=== PATIENT | male | born 1960 | race Caucasian/White ===

== ENCOUNTER 2016-10-30 06:45 | Inpatient (IN) | payer BC ==
[~2016-10-30 06:45] MED LIST: Lactated Ringers 1,000 ML IV SCH; Lidocaine 1%/Sod Bicarbonate in NS 8.4% 1 ML Syringe IV PRN; Sodium Chloride 0.9% 10 ML Syringe FLUSH PRN
[2016-10-30] MEDS ORDERED: cefOXitin 1 GM in Premix Bag 1 BAG IV ONE (07:15)
--- NOTE | 2016-10-30 07:23 | PCM.PREANE ---
Preanesthetic Assessment - Anesthesia/Transfusion/Family Hx Anesthesia History: Prior Anesthesia Without Reaction Family History of Anesthesia Reaction: No Transfusion History: No Prior Transfusion(s) - Review of Systems General: Fatigue (towards the end of the day) Pulmonary: Shortness of Breath, Wheezing Cardiovascular: Dyspnea on Exertion Gastrointestinal: No Symptoms Neurological: Weakness (right arm some numbess as times) Other: Reports: Diabetes (124) - Physical Assessment NPO Status Date: 10/29/16 NPO Status Time: 21:00 Pulse: 61 O2 Sat by Pulse Oximetry: 95 Respiratory Rate: 16 Blood Pressure: 155/81 Height: 1.7 m Weight: 111.13 kg ASA Class: 3 Mental Status: Alert & Oriented x3 Airway Class: Mallampati = 2 Dentition: Reports: Edentulous Thyro-Mental Finger Breadths: 3 Mouth Opening Finger Breadths: 3 ROM/Head Extension: Full Lungs: Clear to Auscultation, Normal Respiratory Effort Cardiovascular: Regular Rate, Regular Rhythm - Allergies Allergies/Adverse Reactions: Allergies Allergy/AdvReac Type Severity Reaction Status Date / Time niacin Allergy Hives Verified 01/15/16 09:29 - Blood Blood Available: No Product(s) Available: None - Anesthesia Plan Beta Hector: Metoprolol Med Last Dose Date: 10/30/16 Med Last Dose Time: 07:15 - Acknowledgements Anesthesia Type Planned: General Anesthesia Pt an Appropriate Candidate for the Planned Anesthesia: Yes Alternatives and Risks of Anesthesia Discussed w Pt/Guardian: Yes Pt/Guardian Understands and Agrees with Anesthesia Plan: Yes PreAnesthesia Questionnaire HEENT History: Reports: Impaired Vision, Otitis Media, Other (See Below) Other HEENT History: wears glasses Cardiovascular History: Reports: Afib, High Cholesterol, Hypertension, Other ( See Below) Other Cardiovascular History: post op afib, edema, venous insufficiency Respiratory History: Reports: COPD, Sleep Apnea, SOB, Other (See Below) Other Respiratory History: R lung mass and adenocarcinoma Genitourinary History: Reports: None OPHTHALMIC DISPENSER History: Reports: None Musculoskeletal History: Reports: Arthritis, Osteoarthritis Neurological History: Reports: None Psychiatric History: Reports: None Endocrine/Metabolic History: Reports: Diabetes, Type II, Obesity/BMI 30+ Hematologic History: Reports: None Immunologic History: Reports: None Oncologic (Cancer) History: Reports: None Dermatologic History: Reports: None - Past Surgical History Head Surgeries/Procedures: Reports: None HEENT Surgical History: Reports: Myringotomy w Tube(s), Tonsillectomy Respiratory Surgical History: Reports: Other (See Below) Other Respiratory Surgeries/Procedures: Right lower lobe lobectomy GI Surgical History: Reports: Colonoscopy Female Surgical History: Reports: None Male Surgical History: Reports: None Neurological Surgical History: Reports: None Oncologic Surgical History: Reports: None Dermatological Surgical History: Reports: None - SUBSTANCE USE Smoking Status *Q: Current Every Day Smoker Tobacco Use Within Last Twelve Months: Cigarettes Second Hand Smoke Exposure: Yes Days Per Week of Alcohol Use: 3 Number of Drinks Per Day: 4 Total Drinks Per Week: 12 Recreational Drug Use History: No Recreational Drug Type: Reports: Marijuana/Hashish - HOME MEDS Home Medications: Home Meds Albuterol [IJD: Ventolin HFA] 1 puff INH Q4HR PRN 01/14/16 [History] Albuterol/Ipratropium [Combivent Respimat] 1 puff INH BID 01/14/16 [History] Fluticasone Propionate [Flovent Hfa] 1 puff INH BID 01/14/16 [History] Irbesartan 300 mg PO DAILY 01/14/16 [History] Lisinopril 40 mg PO DAILY 01/14/16 [History] Metoprolol Tartrate 100 tab PO BID 01/14/16 [History] Simvastatin 20 mg PO BEDTIME 01/14/16 [History] metFORMIN HCl [Metformin HCl] 1,000 mg PO BID 01/14/16 [History] Apixaban [Eliquis] 5 mg PO DAILY 10/29/16 [History] Aspirin 81 mg PO DAILY 10/29/16 [History] Chlorthalidone [Chlorthalidone] 25 mg PO DAILY 10/29/16 [History] Diltiazem [Cardizem CD] 180 mg PO DAILY 10/29/16 [History] Insulin Aspart [NovoLOG] 1 dose SQ TID PRN 10/29/16 [History] Insulin Degludec [Tresiba Flextouch U-200] 120 mg SQ QAM 10/29/16 [History] - CURRENT (IN HOUSE) MEDS Current Meds: Current Medications Lactated Ringer's (Ringers, Lactated) 1,000 mls @ 125 mls/hr IV ASDIRECTED VILMA Cefoxitin Sodium 1 gm/ Premix 50 mls @ 100 mls/hr IV ONETIME ONE Stop: 10/30/16 07:44 Lidocaine/Sodium Bicarbonate (Buffered Lidocaine 1% In Ns 8.4%) 0.25 ml IV ONETIME PRN PRN Reason: Prior to IV Start Stop: 10/30/16 16:00 Sodium Chloride (Saline Flush) 10 ml FLUSH ASDIRECTED PRN PRN Reason: Keep Vein Open Stop: 10/30/16 23:00
[2016-10-30] MEDS ORDERED: Bupivacaine 0.5%/EPINEPHrine 1:200,000 50 ML MDV ONE (07:25)
[2016-10-30] MEDS ORDERED: Lidocaine 1% with EPINEPHrine 1:100,000 20 ML MDV ONE (07:25)
[2016-10-30] MEDS ORDERED: Albuterol 0.042% 1.25 MG/3 ML Neb Soln NEB ONE (07:39)
[2016-10-30] MEDS ORDERED: fentaNYL 250 MCG/5 ML SDV ONE (07:52)
[2016-10-30] MEDS ORDERED: Propofol 200 MG/20 ML SDV ONE (07:52)
[2016-10-30] MEDS ORDERED: Rocuronium 50 MG/5 ML Vial ONE ×2 (07:52→09:42)
[2016-10-30] MEDS ORDERED: Midazolam 1 MG/ML 2 ML SDV ONE (07:52)
[2016-10-30] MEDS ORDERED: Ondansetron 4 MG/2 ML SDV ONE (07:52)
[2016-10-30] MEDS ORDERED: cefOXitin 2 GM in Premix Bag 1 BAG IV ONE (08:45)
[2016-10-30] MEDS ORDERED: HYDROmorphone 1 MG/ML Syringe ONE (09:42)
[2016-10-30] MEDS ORDERED: Glycopyrrolate 0.2 MG/ML SDV ONE (09:53)
[2016-10-30] MEDS ORDERED: ePHEDrine 50 MG/ML SDV ONE (09:53)
[2016-10-30] MEDS ORDERED: Phenylephrine 1% 10 MG/ML SDV ONE (09:53)
[2016-10-30] MEDS ORDERED: Neostigmine Methylsulfate 10 MG/10 ML MDV ONE (09:53)
[2016-10-30] MEDS ORDERED: Ondansetron 4 MG/2 ML SDV IVPUSH PRN (10:11)
[2016-10-30] MEDS ORDERED: fentaNYL 100 MCG/2 ML SDV IVPUSH PRN (10:45)
[2016-10-30] MEDS ORDERED: HYDROmorphone 0.5 MG/0.5 ML Syringe IVPUSH PRN (10:45)
--- NOTE | 2016-10-30 11:11 | PCM.POSTAN ---
POST ANESTHESIA ASSESSMENT - MENTAL STATUS Mental Status: Alert, Oriented - VITAL SIGNS Pulse Rate: 64 SaO2: 95 Resp Rate: 16 Blood Pressure: 149/75 Temperature: 36.8 C - RESPIRATORY Respiratory Status: Respiratory Rate WNL, Airway Patent, O2 Saturation Stable, Supplemental Oxygen - CARDIOVASCULAR CV Status: Pulse Rate WNL, Blood Pressure Stable - GASTROINTESTINAL GI Status: No Symptoms - PAIN Pain Score: 0 - POST OP HYDRATION Hydration Status: Adequate & Stable
--- NOTE | 2016-10-30 11:52 | PCM.OPNOTE ---
- General Post-Op/Procedure Note Date of Surgery/Procedure: 10/30/16 Operative Procedure(s): Open right hemicolectomy with [id number] stapled ileal to transverse colonic anastomosis Findings: Firm mass in the cecum Pre Op Diagnosis: Dysplastic cecal polyp Post-Op Diagnosis: Same Anesthesia Technique: General ET Tube Primary Surgeon: Jose G Sarabia Pathology: Right colon EBL in mLs: 50 Complications: None Condition: Good Free Text/Narrative:: Intake & Output 10/29/16 10/30/16 10/30/16 22:59 06:59 14:59 Output Total 160 Balance -160 After adequate general endotracheal tube anesthesia the patient's abdomen was prepped and draped sterilely for an open right hemicolectomy. A midline incision was made beginning just above the umbilicus and extended to just above the suprapubic region with a 10 blade. The abdomen was entered sharply. Exploration revealed a firm mass in the area of the cecum. A Jovany retractor was used to maintain the operative field. I mobilized the cecum and right colon beginning at the white line and extending in a cephalad direction toward the liver using a combination of blunt finger and sharp dissection I ran into some adhesions between the hepatic flexure and the bed of the liver which were divided sharply and with the cautery. I mobilized the hepatic flexure away from the second and first parts of the duodenum. I then mobilized the terminal ileum from below. This brought the right colon with mobilization outside the abdominal wall. The right ureter was identified before scoring the mesentery. I used Lisa's and 3-0 Vicryl suture to take down the mesentery. I then fired a linear cutter stapler at the hepatic flexure and then across the terminal ileum. The specimen was removed. I then performed a [id number] stapled anastomosis between the ileum and the proximal transverse colon. I used a TA 90 stapler to fire across the ends. 3-0 silk also Lembert sutures were used to reinforce the staple lines. I irrigated out the abdomen with 2 L of saline. I then closed the abdominal wall with a running #1 PDS suture. The skin was closed with maame after irrigating the subcutaneous fat. Gauze and tape were used for the dressing. There were no procedure consultations.
[2016-10-30] MEDS ORDERED: Albuterol 6.7 GM Inhaler INH PRN (11:56)
[2016-10-30] MEDS: Lactated Ringers 1,000 ML IV SCH ×2 (12:56→20:56)
[2016-10-30] MEDS: cefOXitin 2 GM in Premix Bag 1 BAG IV SCH ×2 (12:57→18:25)
[2016-10-30] MEDS: HYDROmorphone 1 MG/ML Syringe IVPUSH PRN ×2 (16:55→21:30)
[2016-10-30] MEDS: Metoprolol Tartrate 100 MG Tab PO SCH (20:59)
[2016-10-30] MEDS: Fluticasone Propionate 44 MCG/Puff 10.6 GM Inhaler INH SCH (21:25)
[2016-10-30] MEDS: Albuterol 6.7 GM Inhaler INH SCH (21:25)
[2016-10-31] MEDS: cefOXitin 2 GM in Premix Bag 1 BAG IV SCH ×4 (00:22→18:26)
[2016-10-31] MEDS: HYDROmorphone 1 MG/ML Syringe IVPUSH PRN ×3 (04:29→20:45)
[2016-10-31] MEDS: Lactated Ringers 1,000 ML IV SCH ×2 (04:30→12:31)
[2016-10-31] MEDS: Metoprolol Tartrate 100 MG Tab PO SCH ×2 (08:19→20:36)
[2016-10-31] MEDS: Lisinopril 20 MG Tab PO SCH (08:29)
[2016-10-31] MEDS: Diltiazem 180 MG Cap.CD PO SCH (08:29)
[2016-10-31] MEDS: Tiotropium Inhaler 18 MCG Inhalation Powder Cap Kit of 5 INH SCH (08:51)
[2016-10-31] MEDS: Albuterol 6.7 GM Inhaler INH SCH ×2 (08:51→20:30)
[2016-10-31] MEDS: Fluticasone Propionate 44 MCG/Puff 10.6 GM Inhaler INH SCH ×2 (08:52→20:30)
[2016-10-31] MEDS ORDERED: Furosemide 20 MG Tab PO PRN (09:24)
--- NOTE | 2016-10-31 09:26 | PCM.SURGPN ---
- General Info Date of Service: 10/31/16 POD#: 1 Functional Status: Reports: Pain Controlled, Ambulating, Urinating - Review of Systems Gastrointestinal: Reports: Abdominal Pain (Incisional discomfort) - Patient Data Vitals - Most Recent: Last Vital Signs Temp 36.2 C 10/31/16 07:59 Pulse 64 10/31/16 08:26 Resp 20 10/31/16 07:59 BP 180/74 H 10/31/16 08:29 Pulse Ox 96 10/31/16 08:54 Weight - Most Recent: 117.072 kg I&O - Last 24 Hours: Intake & Output 10/30/16 10/31/16 10/31/16 22:59 06:59 14:59 Intake Total 560 1555 Output Total 200 1400 Balance 360 155 Lab Results Last 24 Hrs: Laboratory Results - last 24 hr 10/30/16 Range/Units 11:06 POC Glucose 118 H (70-105) mg/dL Med Orders - Current: Current Medications Albuterol (Proventil Hfa) 0 gm INH Q4H PRN PRN Reason: Shortness of Breath Albuterol (Proventil Hfa) 0 gm INH BID [facility] Last Admin: 10/31/16 08:51 Dose: 1 puff Diltiazem HCl (Cardizem Cd) 180 mg PO DAILY [facility] Last Admin: 10/31/16 08:29 Dose: 180 mg Fluticasone Propionate (Flovent Hfa 44 Mcg) 0 gm INH BID [facility] Last Admin: 10/31/16 08:52 Dose: 1 puff Hydromorphone HCl (Dilaudid) 1 mg IVPUSH Q1H PRN PRN Reason: Pain (severe 7-10) Last Admin: 10/31/16 04:29 Dose: 1 mg Cefoxitin Sodium 2 gm/ Premix 50 mls @ 100 mls/hr IV Q6H [facility] Last Admin: 10/31/16 06:49 Dose: 100 mls/hr Lactated Ringer's (Ringers, Lactated) 1,000 mls @ 125 mls/hr IV ASDIRECTED [facility] Last Admin: 10/31/16 04:30 Dose: 125 mls/hr Lisinopril (Prinivil) 40 mg PO DAILY [facility] Last Admin: 10/31/16 08:29 Dose: 40 mg Metoprolol Tartrate (Lopressor) 100 mg PO BID [facility] Last Admin: 10/31/16 08:19 Dose: 100 mg Chlorthalidone 25 Mg 0 each PO DAILY [facility] Tiotropium [place] (Spiriva Handihaler) 18 mcg INH DAILY [facility] Last Admin: 10/31/16 08:51 Dose: 1 puff Discontinued Medications Albuterol (Proventil Neb Soln) 1.25 mg NEB ONETIME ONE Stop: 10/30/16 07:40 Last Admin: 10/30/16 07:59 Dose: 1.25 mg Bupivacaine HCl/Epinephrine Bitart (Marcaine 0.5%/Epinephrine 1:200,000) Confirm Administered Dose 50 ml .ROUTE .STK-MED ONE Stop: 10/30/16 07:26 Ephedrine Sulfate (Ephedrine Sulfate) Confirm Administered Dose 50 mg .ROUTE .STK-MED ONE Stop: 10/30/16 09:54 Fentanyl (Sublimaze) Confirm Administered Dose 250 mcg .ROUTE .STK-MED ONE Stop: 10/30/16 07:53 Fentanyl (Sublimaze) 50 mcg IVPUSH Q5M PRN PRN Reason: pain Stop: 10/30/16 18:00 Glycopyrrolate (Robinul) Confirm Administered Dose 0.6 mg .ROUTE .STK-MED ONE Stop: 10/30/16 09:54 Hydromorphone HCl (Dilaudid) Confirm Administered Dose 1 mg .ROUTE .STK-MED ONE Stop: 10/30/16 09:43 Hydromorphone HCl (Dilaudid) 0.5 mg IVPUSH Q15M PRN PRN Reason: Pain (severe 7-10) Stop: 10/30/16 10:46 Lactated Ringer's (Ringers, Lactated) 1,000 mls @ 125 mls/hr IV ASDIRECTED [facility] Last Admin: 10/30/16 07:25 Dose: 125 mls/hr Cefoxitin Sodium 2 gm/ Premix 50 mls @ 100 mls/hr IV ONETIME ONE Stop: 10/30/16 09:14 Last Admin: 10/30/16 13:02 Dose: Not Given Lidocaine/Epinephrine (Xylocaine 1% With Epinephrine 1:100,000) Confirm Administered Dose 20 ml .ROUTE .STK-MED ONE Stop: 10/30/16 07:26 Lidocaine/Sodium Bicarbonate (Buffered Lidocaine 1% In Ns 8.4%) 0.25 ml IV ONETIME PRN PRN Reason: Prior to IV Start Stop: 10/30/16 16:00 Last Admin: 10/30/16 07:24 Dose: 0.25 ml Midazolam HCl (Versed 1 Mg/Ml) Confirm Administered Dose 2 mg .ROUTE .STK-MED ONE Stop: 10/30/16 07:53 Neostigmine Methylsulfate (Neostigmine Methylsulfate) Confirm Administered Dose 10 mg .ROUTE .STK-MED ONE Stop: 10/30/16 09:54 Ondansetron HCl (Zofran) Confirm Administered Dose 4 mg .ROUTE .STK-MED ONE Stop: 10/30/16 07:53 Ondansetron HCl (Zofran) 4 mg IVPUSH ONETIME PRN PRN Reason: Nausea/Vomiting Stop: 10/30/16 18:00 Phenylephrine HCl (Joe-Synephrine) Confirm Administered Dose 10 mg .ROUTE .STK- MED ONE Stop: 10/30/16 09:54 Propofol (Diprivan 20 Ml) Confirm Administered Dose 200 mg .ROUTE .STK-MED ONE Stop: 10/30/16 07:53 Rocuronium [place] (Zemuron) Confirm Administered Dose 50 mg .ROUTE .STK-MED ONE Stop: 10/30/16 07:53 Rocuronium [place] (Zemuron) Confirm Administered Dose 50 mg .ROUTE .STK-MED ONE Stop: 10/30/16 09:43 Sodium Chloride (Saline Flush) 10 ml FLUSH ASDIRECTED PRN PRN Reason: Keep Vein Open Stop: 10/30/16 23:00 - Exam Wound/Incisions: Dressing Dry and Intact, No Drainage GI/Abdominal Exam: Soft - Problem List Review Problem List Initiated/Reviewed/Updated: Yes - My Orders Last 24 Hours: Active Orders 24 hr Category Date Time Status Patient Status [ADT] Routine ADT 10/30/16 11:52 Active Ambulate [RC] ASDIRECTED Care 10/30/16 11:52 Active Antiembolic Devices [RC] QSHIFT Care 10/30/16 11:55 Active Dressing Change [Wound Care] [RC] DAILY Care 10/30/16 18:41 Active Head of Bed Elevation [RC] ASDIRECTED Care 10/30/16 11:54 Active IS (RT) [RT Incentive Spirometry] [RC] ASDIRECTED Care 10/30/16 12:48 Active Intake and Output [RC] 04,16 Care 10/30/16 11:54 Active May Shower [RC] ASDIRECTED Care 10/31/16 09:23 Ordered Notify Provider [RC] ASDIRECTED Care 10/30/16 10:10 Active Oxygen Therapy [RC] PRN Care 10/30/16 11:52 Active Pulse Oximetry [RC] ASDIRECTED Care 10/30/16 10:10 Active Up ad Evy [RC] ASDIRECTED Care 10/30/16 11:52 Active Up to Chair [RC] ASDIRECTED Care 10/30/16 11:52 Active VTE/DVT Education [RC] QSHIFT Care 10/30/16 11:55 Active Vital Signs [RC] Q4HR Care 10/30/16 11:52 Active Clear Liquid Diet [DIET] Diet 10/31/16 Lunch Ordered Nothing Per Oral Diet [DIET] Diet 10/30/16 Dinner Active Albuterol [Proventil HFA] Med 10/30/16 21:00 Active 0 gm INH BID Albuterol [Proventil HFA] Med 10/30/16 11:56 Active 0 gm INH Q4H PRN Diltiazem [Cardizem CD] Med 10/31/16 09:00 Active 180 mg PO DAILY Fluticasone Propionate [Flovent HFA 44 MCG] Med 10/30/16 21:00 Active 0 gm INH BID Furosemide [Lasix] Med 10/31/16 09:24 Ordered 20 mg PO DAILY PRN HYDROmorphone [Dilaudid] Med 10/30/16 11:52 Active 1 mg IVPUSH Q1H PRN Lactated Ringers [Ringers, Lactated] 1,000 ml Med 10/30/16 12:00 Active IV ASDIRECTED Lisinopril [Prinivil] Med 10/31/16 09:00 Active 40 mg PO DAILY Metoprolol Tartrate [Lopressor] Med 10/30/16 21:00 Active 100 mg PO BID Patient's Own Medication [Ptom] Med 10/31/16 09:00 Active 0 each PO DAILY Tiotropium [Spiriva HandiHaler] Med 10/31/16 09:00 Active 18 mcg INH DAILY cefOXitin [Mefoxin in Dextrose,Iso-Osm 2 GM/50 ML] 2 gm Med 10/30/16 12:30 Active Premix Bag 1 bag IV Q6H Abdominal Binder [OM.PC] Per Unit Routine Oth 10/30/16 11:54 Ordered CPAP [RESPCARE] Routine Oth 10/30/16 12:49 Active DVT/VTE Prophylaxis Reflex [OM.PC] Routine Oth 10/30/16 11:52 Ordered Resuscitation Status Routine Resus Stat 10/30/16 11:52 Ordered Medication Orders Albuterol (Proventil Hfa) 0 gm INH Q4H PRN PRN Reason: Shortness of Breath Albuterol (Proventil Hfa) 0 gm INH BID [facility] Last Admin: 10/31/16 08:51 Dose: 1 puff Admin: 10/30/16 21:25 Dose: 1 puff Diltiazem HCl (Cardizem Cd) 180 mg PO DAILY [facility] Last Admin: 10/31/16 08:29 Dose: 180 mg Fluticasone Propionate (Flovent Hfa 44 Mcg) 0 gm INH BID [facility] Last Admin: 10/31/16 08:52 Dose: 1 puff Admin: 10/30/16 21:25 Dose: 1 puff Hydromorphone HCl (Dilaudid) 1 mg IVPUSH Q1H PRN PRN Reason: Pain (severe 7-10) Last Admin: 10/31/16 04:29 Dose: 1 mg Admin: 10/30/16 21:30 Dose: 1 mg Admin: 10/30/16 16:55 Dose: 1 mg Cefoxitin Sodium 2 gm/ Premix 50 mls @ 100 mls/hr IV Q6H [facility] Last Admin: 10/31/16 06:49 Dose: 100 mls/hr Infusion: 10/31/16 00:52 Dose: 100 mls/hr Admin: 10/31/16 00:22 Dose: 100 mls/hr Infusion: 10/30/16 18:55 Dose: 100 mls/hr Admin: 10/30/16 18:25 Dose: 100 mls/hr Infusion: 10/30/16 13:27 Dose: 100 mls/hr Admin: 10/30/16 12:57 Dose: 100 mls/hr Lactated Ringer's (Ringers, Lactated) 1,000 mls @ 125 mls/hr IV ASDIRECTED [facility] Last Admin: 10/31/16 04:30 Dose: 125 mls/hr Infusion: 10/31/16 04:30 Dose: 125 mls/hr Admin: 10/30/16 20:56 Dose: 125 mls/hr Infusion: 10/30/16 20:56 Dose: 125 mls/hr Admin: 10/30/16 12:56 Dose: 125 mls/hr Lisinopril (Prinivil) 40 mg PO DAILY [facility] Last Admin: 10/31/16 08:29 Dose: 40 mg Metoprolol Tartrate (Lopressor) 100 mg PO BID [facility] Last Admin: 10/31/16 08:19 Dose: 100 mg Admin: 10/30/16 20:59 Dose: 100 mg Chlorthalidone 25 Mg 0 each PO DAILY [facility] Tiotropium [place] (Spiriva Handihaler) 18 mcg INH DAILY [facility] Last Admin: 10/31/16 08:51 Dose: 1 puff - Assessment Assessment (Free Text/Narrative):: Awaiting return of bowel function. - Plan Plan (Free Text/Narrative):: Will start slow clear liquid diet.
[2016-10-31] MEDS: Insulin Aspart 100 Units/ML 3 ML Pen SUBCUT SCH ×2 (12:20→16:56)
[2016-10-31] MEDS: Nicotine 14 MG/24 Hr Patch TRDERM SCH (20:37)
[2016-11-01] MEDS: cefOXitin 2 GM in Premix Bag 1 BAG IV SCH ×5 (00:44→23:29)
[2016-11-01] MEDS: Lactated Ringers 1,000 ML IV SCH ×2 (00:45→20:56)
[2016-11-01] MEDS: Insulin Aspart 100 Units/ML 3 ML Pen SUBCUT SCH ×2 (06:57→17:46)
[2016-11-01] MEDS ORDERED: Ondansetron 4 MG/2 ML SDV IVPUSH PRN (08:48)
[2016-11-01] MEDS: Albuterol 6.7 GM Inhaler INH SCH ×2 (08:53→20:39)
[2016-11-01] MEDS: Tiotropium Inhaler 18 MCG Inhalation Powder Cap Kit of 5 INH SCH (08:54)
[2016-11-01] MEDS: Fluticasone Propionate 44 MCG/Puff 10.6 GM Inhaler INH SCH ×2 (08:54→20:39)
[2016-11-01] MEDS: Metoprolol Tartrate 100 MG Tab PO SCH ×2 (09:02→20:57)
[2016-11-01] MEDS: Diltiazem 180 MG Cap.CD PO SCH (09:02)
[2016-11-01] MEDS: Lisinopril 20 MG Tab PO SCH (09:03)
[2016-11-01] MEDS: Nicotine 14 MG/24 Hr Patch TRDERM SCH (09:04)
[2016-11-01] MEDS ORDERED: Enalaprilat 1.25 MG/ML SDV IVPUSH PRN (09:32)
--- NOTE | 2016-11-01 09:36 | PCM.SURGPN ---
- General Info Date of Service: 11/01/16 POD#: 2 Functional Status: Reports: Pain Controlled, Ambulating, Urinating - Review of Systems Gastrointestinal: Reports: Abdominal Pain (Much improved incisional pain except when vomiting), Diarrhea (Not sure about flatus as yet), Nausea, Vomiting - Patient Data Vitals - Most Recent: Last Vital Signs Temp 36.2 C 11/01/16 08:36 Pulse 63 11/01/16 09:02 Resp 20 11/01/16 08:36 BP 163/83 H 11/01/16 09:03 Pulse Ox 96 11/01/16 08:57 Weight - Most Recent: 117.072 kg I&O - Last 24 Hours: Intake & Output 10/31/16 11/01/16 11/01/16 22:59 06:59 14:59 Intake Total 2215 1475 Output Total 700 Balance 1515 1475 Lab Results Last 24 Hrs: Laboratory Results - last 24 hr 10/31/16 10/31/16 10/31/16 Range/Units 09:48 12:02 16:18 POC Glucose 185 H 161 H 184 H (70-105) mg/dL 11/01/16 11/01/16 Range/Units 06:01 06:56 POC Glucose 219 H 214 H (70-105) mg/dL Med Orders - Current: Current Medications Albuterol (Proventil Hfa) 0 gm INH Q4H PRN PRN Reason: Shortness of Breath Albuterol (Proventil Hfa) 0 gm INH BID [facility] Last Admin: 11/01/16 08:53 Dose: 1 puff Diltiazem HCl (Cardizem Cd) 180 mg PO DAILY [facility] Last Admin: 11/01/16 09:02 Dose: 180 mg Fluticasone Propionate (Flovent Hfa 44 Mcg) 0 gm INH BID [facility] Last Admin: 11/01/16 08:54 Dose: 1 puff Furosemide (Lasix) 20 mg PO DAILY PRN PRN Reason: Edema Hydromorphone HCl (Dilaudid) 1 mg IVPUSH Q1H PRN PRN Reason: Pain (severe 7-10) Last Admin: 10/31/16 20:45 Dose: 1 mg Cefoxitin Sodium 2 gm/ Premix 50 mls @ 100 mls/hr IV Q6H [facility] Last Admin: 11/01/16 06:49 Dose: 100 mls/hr Lactated Ringer's (Ringers, Lactated) 1,000 mls @ 40 mls/hr IV ASDIRECTED [facility] Last Admin: 11/01/16 00:45 Dose: 40 mls/hr Insulin Aspart (Novolog) 0 unit SUBCUT BIDAC [facility] PRN Reason: Protocol Last Admin: 11/01/16 06:57 Dose: 2 unit Lisinopril (Prinivil) 40 mg PO DAILY [facility] Last Admin: 11/01/16 09:03 Dose: 40 mg Metoprolol Tartrate (Lopressor) 100 mg PO BID [facility] Last Admin: 11/01/16 09:02 Dose: 100 mg Miscellaneous Information (Remove Patch) 1 ea TRDERM DAILY [facility] Last Admin: 11/01/16 09:06 Dose: Not Given Nicotine (Habitrol) 14 mg TRDERM DAILY [facility] Last Admin: 11/01/16 09:04 Dose: Not Given Ondansetron HCl (Zofran) 4 mg IVPUSH Q4H PRN PRN Reason: Nausea Last Admin: 11/01/16 09:06 Dose: 4 mg Chlorthalidone 25 Mg 0 each PO DAILY [facility] Last Admin: 11/01/16 09:05 Dose: 25 each Tiotropium [place] (Spiriva Handihaler) 18 mcg INH DAILY [facility] Last Admin: 11/01/16 08:54 Dose: 1 puff Discontinued Medications Albuterol (Proventil Neb Soln) 1.25 mg NEB ONETIME ONE Stop: 10/30/16 07:40 Last Admin: 10/30/16 07:59 Dose: 1.25 mg Bupivacaine HCl/Epinephrine Bitart (Marcaine 0.5%/Epinephrine 1:200,000) Confirm Administered Dose 50 ml .ROUTE .STK-MED ONE Stop: 10/30/16 07:26 Ephedrine Sulfate (Ephedrine Sulfate) Confirm Administered Dose 50 mg .ROUTE .STK-MED ONE Stop: 10/30/16 09:54 Fentanyl (Sublimaze) Confirm Administered Dose 250 mcg .ROUTE .STK-MED ONE Stop: 10/30/16 07:53 Fentanyl (Sublimaze) 50 mcg IVPUSH Q5M PRN PRN Reason: pain Stop: 10/30/16 18:00 Glycopyrrolate (Robinul) Confirm Administered Dose 0.6 mg .ROUTE .STK-MED ONE Stop: 10/30/16 09:54 Hydromorphone HCl (Dilaudid) Confirm Administered Dose 1 mg .ROUTE .STK-MED ONE Stop: 10/30/16 09:43 Hydromorphone HCl (Dilaudid) 0.5 mg IVPUSH Q15M PRN PRN Reason: Pain (severe 7-10) Stop: 10/30/16 10:46 Lactated Ringer's (Ringers, Lactated) 1,000 mls @ 125 mls/hr IV ASDIRECTED [facility] Last Admin: 10/30/16 07:25 Dose: 125 mls/hr Cefoxitin Sodium 2 gm/ Premix 50 mls @ 100 mls/hr IV ONETIME ONE Stop: 10/30/16 09:14 Last Admin: 10/30/16 13:02 Dose: Not Given Lactated Ringer's (Ringers, Lactated) 1,000 [facility]ls [facility] Admin: 10/31/16 12:31 Dose: 125 mls/hr Lidocaine/Epinephrine (Xylocaine 1% With Epinephrine 1:100,000) Confirm Administered Dose 20 ml .ROUTE .STK-MED ONE Stop: 10/30/16 07:26 Lidocaine/Sodium Bicarbonate (Buffered Lidocaine 1% In Ns 8.4%) 0.25 ml IV ONETIME PRN PRN Reason: Prior to IV Start Stop: 10/30/16 16:00 Last Admin: 10/30/16 07:24 Dose: 0.25 ml Midazolam HCl (Versed 1 Mg/Ml) Confirm Administered Dose 2 mg .ROUTE .STK-MED ONE Stop: 10/30/16 07:53 Neostigmine Methylsulfate (Neostigmine Methylsulfate) Confirm Administered Dose 10 mg .ROUTE .STK-MED ONE Stop: 10/30/16 09:54 Ondansetron HCl (Zofran) Confirm Administered Dose 4 mg .ROUTE .STK-MED ONE Stop: 10/30/16 07:53 Ondansetron HCl (Zofran) 4 mg IVPUSH ONETIME PRN PRN Reason: Nausea/Vomiting Stop: 10/30/16 18:00 Phenylephrine HCl (Joe-Synephrine) Confirm Administered Dose 10 mg .ROUTE .STK- MED ONE Stop: 10/30/16 09:54 Propofol (Diprivan 20 Ml) Confirm Administered Dose 200 mg .ROUTE .STK-MED ONE Stop: 10/30/16 07:53 Rocuronium [place] (Zemuron) Confirm Administered Dose 50 mg .ROUTE .STK-MED ONE Stop: 10/30/16 07:53 Rocuronium [place] (Zemuron) Confirm Administered Dose 50 mg .ROUTE .STK-MED ONE Stop: 10/30/16 09:43 Sodium Chloride (Saline Flush) 10 ml FLUSH ASDIRECTED PRN PRN Reason: Keep Vein Open Stop: 10/30/16 23:00 - Exam Wound/Incisions: Dressing Dry and Intact General: Alert, Oriented, Cooperative GI/Abdominal Exam: Soft, Non-Tender - Problem List Review Problem List Initiated/Reviewed/Updated: Yes - My Orders Last 24 Hours: Active Orders 24 hr Category Date Time Status Blood Glucose Check, Bedside [RC] BIDMEALS Care 10/31/16 09:38 Active May Shower [RC] ASDIRECTED Care 10/31/16 09:23 Active Clear Liquid Diet [DIET] Diet 10/31/16 Lunch Active BMP [BASIC METABOLIC PANEL,BMP] [CHEM] Routine Lab 11/01/16 09:31 Ordered CBC WITH AUTO DIFF [HEME] Routine Lab 11/01/16 09:30 Ordered Diltiazem [Cardizem CD] Med 10/31/16 09:00 Active 180 mg PO DAILY Enalaprilat [Vasotec IV] Med 11/01/16 09:32 Ordered 0.625 mg IVPUSH Q6H PRN Furosemide [Lasix] Med 10/31/16 09:24 Active 20 mg PO DAILY PRN Insulin Aspart [NovoLOG] Med 10/31/16 09:45 Active See Protocol SUBCUT BIDAC Lactated Ringers [Ringers, Lactated] 1,000 ml Med 10/31/16 17:15 Active IV ASDIRECTED Lisinopril [Prinivil] Med 10/31/16 09:00 Active 40 mg PO DAILY Nicotine [Habitrol] Med 10/31/16 19:00 Active 14 mg TRDERM DAILY Ondansetron [Zofran] Med 11/01/16 08:48 Active 4 mg IVPUSH Q4H PRN Patient's Own Medication [Ptom] Med 10/31/16 09:00 Active 0 each PO DAILY Remove Patch Med 11/01/16 09:00 Active 1 ea TRDERM DAILY Tiotropium [Spiriva HandiHaler] Med 10/31/16 09:00 Active 18 mcg INH DAILY Medication Orders Albuterol (Proventil Hfa) 0 gm INH Q4H PRN PRN Reason: Shortness of Breath Albuterol (Proventil Hfa) 0 gm INH BID [facility] Last Admin: 11/01/16 08:53 Dose: 1 puff Admin: 10/31/16 20:30 Dose: 1 puff Admin: 10/31/16 08:51 Dose: 1 puff Admin: 10/30/16 21:25 Dose: 1 puff Diltiazem HCl (Cardizem Cd) 180 mg PO DAILY [facility] Last Admin: 11/01/16 09:02 Dose: 180 mg Admin: 10/31/16 08:29 Dose: 180 mg Fluticasone Propionate (Flovent Hfa 44 Mcg) 0 gm INH BID [facility] Last Admin: 11/01/16 08:54 Dose: 1 puff Admin: 10/31/16 20:30 Dose: 1 puff Admin: 10/31/16 08:52 Dose: 1 puff Admin: 10/30/16 21:25 Dose: 1 puff Furosemide (Lasix) 20 mg PO DAILY PRN PRN Reason: Edema Hydromorphone HCl (Dilaudid) 1 mg IVPUSH Q1H PRN PRN Reason: Pain (severe 7-10) Last Admin: 10/31/16 20:45 Dose: 1 mg Admin: 10/31/16 09:20 Dose: 1 mg Admin: 10/31/16 04:29 Dose: 1 mg Admin: 10/30/16 21:30 Dose: 1 mg Admin: 10/30/16 16:55 Dose: 1 mg Cefoxitin Sodium 2 gm/ Premix 50 mls @ 100 mls/hr IV Q6H [facility] Last Admin: 11/01/16 06:49 Dose: 100 mls/hr Infusion: 11/01/16 01:14 Dose: 100 mls/hr Admin: 11/01/16 00:44 Dose: 100 mls/hr Infusion: 10/31/16 18:56 Dose: 100 mls/hr Admin: 10/31/16 18:26 Dose: 100 mls/hr Infusion: 10/31/16 12:58 Dose: 100 mls/hr Admin: 10/31/16 12:28 Dose: 100 mls/hr Infusion: 10/31/16 07:19 Dose: 100 mls/hr Admin: 10/31/16 06:49 Dose: 100 mls/hr Infusion: 10/31/16 00:52 Dose: 100 mls/hr Admin: 10/31/16 00:22 Dose: 100 mls/hr Infusion: 10/30/16 18:55 Dose: 100 mls/hr Admin: 10/30/16 18:25 Dose: 100 mls/hr Infusion: 10/30/16 13:27 Dose: 100 mls/hr Admin: 10/30/16 12:57 Dose: 100 mls/hr Lactated Ringer's (Ringers, Lactated) 1,000 mls @ 40 mls/hr IV ASDIRECTED [facility] Last Admin: 11/01/16 00:45 Dose: 40 mls/hr Insulin Aspart (Novolog) 0 unit SUBCUT BIDAC [facility] PRN Reason: Protocol Last Admin: 11/01/16 06:57 Dose: 2 unit Admin: 10/31/16 16:56 Dose: 1 unit Admin: 10/31/16 12:20 Dose: 1 unit Lisinopril (Prinivil) 40 mg PO DAILY [facility] Last Admin: 11/01/16 09:03 Dose: 40 mg Admin: 10/31/16 08:29 Dose: 40 mg Metoprolol Tartrate (Lopressor) 100 mg PO BID [facility] Last Admin: 11/01/16 09:02 Dose: 100 mg Admin: 10/31/16 20:36 Dose: 100 mg Admin: 10/31/16 08:19 Dose: 100 mg Admin: 10/30/16 20:59 Dose: 100 mg Miscellaneous Information (Remove Patch) 1 ea TRDERM DAILY [facility] Last Admin: 11/01/16 09:06 Dose: Nicotine (Habitrol) 14 mg TRDERM DAILY [facility] Last Admin: 11/01/16 09:04 Dose: Not Given Admin: 10/31/16 20:37 Dose: Not Given Ondansetron HCl (Zofran) 4 mg IVPUSH Q4H PRN PRN Reason: Nausea Last Admin: 11/01/16 09:06 Dose: 4 mg Chlorthalidone 25 Mg 0 each PO DAILY [facility] Last Admin: 11/01/16 09:05 Dose: 25 each Admin: 10/31/16 11:44 Dose: Tiotropium [place] (Spiriva Handihaler) 18 mcg INH DAILY [facility] Last Admin: 11/01/16 08:54 Dose: 1 puff Admin: 10/31/16 08:51 Dose: 1 puff - Assessment Assessment (Free Text/Narrative):: Evolving postoperative ileus. Nausea related to ileus. I discussed the possibility of a nasogastric tube with the patient said he would go slow with the liquid intake. - Plan Plan (Free Text/Narrative):: Shower today.
[2016-11-01] MEDS: Apixaban 5 MG Tab PO SCH ×2 (10:30→20:58)
--- NOTE | 2016-11-01 11:25 | PCM48HPAN ---
Post Anesthesia Note - EVALUATION WITHIN 48HRS OF ANESTHETIC Vital Signs in Normal Range: Yes Patient Participated in Evaluation: Yes Respiratory Function Stable: Yes Airway Patent: Yes Cardiovascular Function Stable: Yes Hydration Status Stable: Yes Pain Control Satisfactory: Yes (Taking IV dilaudid for pain. ) Nausea and Vomiting Control Satisfactory: No (Nauseated this morning has been feeling pretty good otherwise. ) Mental Status Recovered: Yes - COMMENTS/OBSERVATIONS Free Text/Narrative:: Patient up and ambulating, feeling somewhat nauseated this morning. Feels it is from his pain medication. Dr. Sarabia aware. Patient refusing NG tube placement at this time.
[2016-11-01] MEDS: Aluminum Hydroxide/Magnesium Hydroxide/Simethicone Susp 30 ML Cup PO PRN (11:39)
[2016-11-01] MEDS: HYDROmorphone 1 MG/ML Syringe IVPUSH PRN ×3 (11:41→22:08)
[2016-11-01] MEDS ORDERED: Metoclopramide 10 MG/2 ML SDV IVPUSH PRN (12:13)
[2016-11-01] MEDS: Pantoprazole 40 MG Vial IVPUSH SCH (12:52)
[2016-11-01] MEDS: Potassium Chloride 10 MEQ in Premix Bag 1 BAG IV SCH ×4 (13:12→22:07)
[2016-11-02] MEDS: HYDROmorphone 1 MG/ML Syringe IVPUSH PRN ×3 (04:30→15:54)
[2016-11-02] MEDS: Potassium Chloride 10 MEQ in Premix Bag 1 BAG IV SCH ×6 (04:48→23:30)
[2016-11-02] MEDS: cefOXitin 2 GM in Premix Bag 1 BAG IV SCH ×4 (06:06→23:31)
[2016-11-02] MEDS: Insulin Aspart 100 Units/ML 3 ML Pen SUBCUT SCH ×2 (07:03→18:09)
[2016-11-02] MEDS: Albuterol 6.7 GM Inhaler INH SCH ×2 (09:00→20:57)
[2016-11-02] MEDS: Fluticasone Propionate 44 MCG/Puff 10.6 GM Inhaler INH SCH ×2 (09:01→20:57)
[2016-11-02] MEDS: Tiotropium Inhaler 18 MCG Inhalation Powder Cap Kit of 5 INH SCH (09:01)
[2016-11-02] MEDS ORDERED: Bisacodyl 10 MG Supp RECTAL ONE (09:04)
--- NOTE | 2016-11-02 09:04 | PCM.SURGPN ---
- General Info Date of Service: 11/02/16 POD#: 3 Functional Status: Reports: Pain Controlled, Ambulating, Urinating - Review of Systems Gastrointestinal: Reports: Diarrhea (Yesterday), Flatus (Yesterday), Other ( Heartburn improved with Protonix) - Patient Data Vitals - Most Recent: Last Vital Signs Temp 36.4 C 11/02/16 07:22 Pulse 57 L 11/02/16 07:22 Resp 14 11/02/16 07:22 BP 140/68 11/02/16 07:22 Pulse Ox 96 11/02/16 07:22 Weight - Most Recent: 115.711 kg I&O - Last 24 Hours: Intake & Output 11/01/16 11/02/16 11/02/16 22:59 06:59 14:59 Intake Total 660 1809 Balance 660 1809 Lab Results Last 24 Hrs: Laboratory Results - last 24 hr 11/01/16 11/01/16 11/01/16 Range/Units 09:45 09:45 16:46 WBC 19.13 H (4.23-9.07) K/mm3 RBC 5.18 (4.63-6.08) M/mm3 Hgb 16.5 (13.7-17.5) gm/L Hct 47.0 (40.1-51.0) % MCV 90.7 (79.0-92.2) fl MCH 31.9 (25.7-32.2) pg MCHC 35.1 (32.2-35.5) g/dl RDW Std Deviation 41.6 (35.1-43.9) fL Plt Count 177 (163-337) K/mm3 MPV 9.8 (9.4-12.3) fl Neut % (Auto) 89.2 H (34.0-67.9) % Lymph % (Auto) 5.5 L (21.8-53.1) % [place] % (Auto) 4.8 L (5.3-12.2) % Eos % (Auto) 0.1 L (0.8-7.0) Baso % (Auto) 0.1 (0.1-1.2) % Neut # (Auto) 17.07 H (1.78-5.38) K/mm3 Lymph # (Auto) 1.05 L (1.32-3.57) K/mm3 [place] # (Auto) 0.92 H (0.30-0.82) K/mm3 Eos # (Auto) 0.02 L (0.04-0.54) K/mm3 Baso # (Auto) 0.01 (0.01-0.08) K/mm3 Manual Slide Review Normal smear Sodium 137 (136-145) mEq/L Potassium 3.3 L (3.5-5.1) mEq/L Chloride 96 L (98-107) mEq/L Carbon Dioxide 34 H (21-32) mEq/L Anion Gap 10.3 (5-15) BUN 18 (7-18) mg/dL Creatinine 0.8 (0.7-1.3) mg/dL Est Cr Clr Drug Dosing 97.54 mL/min Estimated GFR (MDRD) > 60 (>60) mL/min BUN/Creatinine Ratio 22.5 H (14-18) Glucose 239 H (74-106) mg/dL POC Glucose 177 H (70-105) mg/dL Calcium 9.2 (8.5-10.1) mg/dL 11/02/16 Range/Units 06:02 WBC (4.23-9.07) K/mm3 RBC (4.63-6.08) M/mm3 Hgb (13.7-17.5) gm/L Hct (40.1-51.0) % MCV (79.0-92.2) fl MCH (25.7-32.2) pg MCHC (32.2-35.5) g/dl RDW Std Deviation (35.1-43.9) fL Plt Count (163-337) K/mm3 MPV (9.4-12.3) fl Neut % (Auto) (34.0-67.9) % Lymph % (Auto) (21.8-53.1) % [place] % (Auto) (5.3-12.2) % Eos % (Auto) (0.8-7.0) Baso % (Auto) (0.1-1.2) % Neut # (Auto) (1.78-5.38) K/mm3 Lymph # (Auto) (1.32-3.57) K/mm3 [place] # (Auto) (0.30-0.82) K/mm3 Eos # (Auto) (0.04-0.54) K/mm3 Baso # (Auto) (0.01-0.08) K/mm3 Manual Slide Review Sodium (136-145) mEq/L Potassium (3.5-5.1) mEq/L Chloride (98-107) mEq/L Carbon Dioxide (21-32) mEq/L Anion Gap (5-15) BUN (7-18) mg/dL Creatinine (0.7-1.3) mg/dL Est Cr Clr Drug Dosing mL/min Estimated GFR (MDRD) (>60) mL/min BUN/Creatinine Ratio (14-18) Glucose (74-106) mg/dL POC Glucose 176 H (70-105) mg/dL Calcium (8.5-10.1) mg/dL Med Orders - Current: Current Medications Al Hydroxide/Mg Hydroxide (Mag-Al Plus) 30 ml PO Q4H PRN PRN Reason: Heartburn Last Admin: 11/01/16 11:39 Dose: 30 ml Albuterol (Proventil Hfa) 0 gm INH Q4H PRN PRN Reason: Shortness of Breath Albuterol (Proventil Hfa) 0 gm INH BID [facility] Last Admin: 11/02/16 09:00 Dose: 1 puff Apixaban (Eliquis) 5 mg PO BID [facility] Last Admin: 11/01/16 20:58 Dose: 5 mg Diltiazem HCl (Cardizem Cd) 180 mg PO DAILY [facility] Last Admin: 11/01/16 09:02 Dose: 180 mg Enalaprilat (Vasotec Iv) 0.625 mg IVPUSH Q6H PRN PRN Reason: Hypertension Fluticasone Propionate (Flovent Hfa 44 Mcg) 0 gm INH BID [facility] Last Admin: 11/02/16 09:01 Dose: 1 puff Furosemide (Lasix) 20 mg PO DAILY PRN PRN Reason: Edema Hydromorphone HCl (Dilaudid) 1 mg IVPUSH Q1H PRN PRN Reason: Pain (severe 7-10) Last Admin: 11/02/16 04:30 Dose: 1 mg Cefoxitin Sodium 2 gm/ Premix 50 mls @ 100 mls/hr IV Q6H [facility] Last Admin: 11/02/16 06:06 Dose: 100 mls/hr Lactated Ringer's (Ringers, Lactated) 1,000 mls @ 40 mls/hr IV ASDIRECTED [facility] Last Admin: 11/01/16 20:56 Dose: 40 mls/hr Insulin Aspart (Novolog) 0 unit SUBCUT BIDAC [facility] PRN Reason: Protocol Last Admin: 11/02/16 07:03 Dose: 1 unit Lisinopril (Prinivil) 40 mg PO DAILY [facility] Last Admin: 11/01/16 09:03 Dose: 40 mg Metoclopramide HCl (Reglan) 5 mg IVPUSH Q6H PRN PRN Reason: Nausea Last Admin: 11/01/16 12:54 Dose: 5 mg Metoprolol Tartrate (Lopressor) 100 mg PO BID [facility] Last Admin: 11/01/16 20:57 Dose: 100 mg Miscellaneous Information (Remove Patch) 1 ea TRDERM DAILY [facility] Last Admin: 11/01/16 09:06 Dose: Not Given Nicotine (Habitrol) 14 mg TRDERM DAILY [facility] Last Admin: 11/01/16 09:04 Dose: Not Given Ondansetron HCl (Zofran) 4 mg IVPUSH Q4H PRN PRN Reason: Nausea Last Admin: 11/01/16 09:06 Dose: 4 mg Pantoprazole Sodium (Protonix Iv) 20 mg IVPUSH DAILY [facility] Last Admin: 11/01/16 12:52 Dose: 20 mg Chlorthalidone 25 Mg 0 each PO DAILY [facility] Last Admin: 11/01/16 09:05 Dose: 25 each Tiotropium [place] (Spiriva Handihaler) 18 mcg INH DAILY [facility] Last Admin: 11/02/16 09:01 Dose: 1 puff Discontinued Medications Albuterol (Proventil Neb Soln) 1.25 mg NEB ONETIME ONE Stop: 10/30/16 07:40 Last Admin: 10/30/16 07:59 Dose: 1.25 mg Bupivacaine HCl/Epinephrine Bitart (Marcaine 0.5%/Epinephrine 1:200,000) Confirm Administered Dose 50 ml .ROUTE .STK-MED ONE Stop: 10/30/16 07:26 Ephedrine Sulfate (Ephedrine Sulfate) Confirm Administered Dose 50 mg .ROUTE .STK-MED ONE Stop: 10/30/16 09:54 Fentanyl (Sublimaze) Confirm Administered Dose 250 mcg .ROUTE .STK-MED ONE Stop: 10/30/16 07:53 Fentanyl (Sublimaze) 50 mcg IVPUSH Q5M PRN PRN Reason: pain Stop: 10/30/16 18:00 Glycopyrrolate (Robinul) Confirm Administered Dose 0.6 mg .ROUTE .STK-MED ONE Stop: 10/30/16 09:54 Hydromorphone HCl (Dilaudid) Confirm Administered Dose 1 mg .ROUTE .STK-MED ONE Stop: 10/30/16 09:43 Hydromorphone HCl (Dilaudid) 0.5 mg IVPUSH Q15M PRN PRN Reason: Pain (severe 7-10) Stop: 10/30/16 10:46 Lactated Ringer's (Ringers, Lactated) 1,000 mls @ 125 mls/hr IV ASDIRECTRED [facility] Last Admin: 10/30/16 07:25 Dose: 125 mls/hr Cefoxitin Sodium 2 gm/ Premix 50 mls @ 100 mls/hr IV ONETIME ONE Stop: 10/30/16 09:14 Last Admin: 10/30/16 13:02 Dose: Not Given Lactated Ringer's (Ringers, Lactated) 1,000 mls @ 40 mls/hr IV ASDIRECTED [facility] Last Admin: 10/31/16 12:31 Dose: 125 mls/hr Potassium Chloride 10 meq/ (Premix) 100 mls @ 100 mls/hr IV Q1H [facility] Stop: 11/01/16 13:59 Last Admin: 11/01/16 15:01 Dose: 100 mls/hr Potassium Chloride 10 meq/ (Premix) 100 mls @ 100 mls/hr IV Q1H [facility] Stop: 11/01/16 21:59 Last Admin: 11/01/16 22:07 Dose: 100 mls/hr Potassium Chloride 10 meq/ (Premix) 100 mls @ 100 mls/hr IV Q1H [facility] Stop: 11/02/16 05:59 Last Admin: 11/02/16 06:03 Dose: 100 mls/hr Lidocaine/Epinephrine (Xylocaine 1% With Epinephrine 1:100,000) Confirm Administered Dose 20 ml .ROUTE .STK-MED ONE Stop: 10/30/16 07:26 Lidocaine/Sodium Bicarbonate (Buffered Lidocaine 1% In Ns 8.4%) 0.25 ml IV ONETIME PRN PRN Reason: Prior to IV Start Stop: 10/30/16 16:00 Last Admin: 10/30/16 07:24 Dose: 0.25 ml Midazolam HCl (Versed 1 Mg/Ml) Confirm Administered Dose 2 mg .ROUTE .STK-MED ONE Stop: 10/30/16 07:53 Neostigmine Methylsulfate (Neostigmine Methylsulfate) Confirm Administered Dose 10 mg .ROUTE .STK-MED ONE Stop: 10/30/16 09:54 Ondansetron HCl (Zofran) Confirm Administered Dose 4 mg .ROUTE .STK-MED ONE Stop: 10/30/16 07:53 Ondansetron HCl (Zofran) 4 mg IVPUSH ONETIME PRN PRN Reason: Nausea/Vomiting Stop: 10/30/16 18:00 Phenylephrine HCl (Joe-Synephrine) Confirm Administered Dose 10 mg .ROUTE .STK- MED ONE Stop: 10/30/16 09:54 Propofol (Diprivan 20 Ml) Confirm Administered Dose 200 mg .ROUTE .STK-MED ONE Stop: 10/30/16 07:53 Rocuronium [place] (Zemuron) Confirm Administered Dose 50 mg .ROUTE .STK-MED ONE Stop: 10/30/16 07:53 Rocuronium [place] (Zemuron) Confirm Administered Dose 50 mg .ROUTE .STK-MED ONE Stop: 10/30/16 09:43 Sodium Chloride (Saline Flush) 10 ml FLUSH ASDIRECTED PRN PRN Reason: Keep Vein Open Stop: 10/30/16 23:00 - Exam General: Alert, Oriented, Cooperative, No Acute Distress Lungs: Normal Respiratory Effort GI/Abdominal Exam: Soft, Non-Tender - Problem List Review Problem List Initiated/Reviewed/Updated: Yes - My Orders Last 24 Hours: Active Orders 24 hr Category Date Time Status Alum Hydrox/Mag Hydrox/Simeth [Mag-Al Plus] Med 11/01/16 10:46 Active 30 ml PO Q4H PRN Apixaban [Eliquis] Med 11/01/16 09:45 Active 5 mg PO BID Enalaprilat [Vasotec IV] Med 11/01/16 09:32 Active 0.625 mg IVPUSH Q6H PRN Metoclopramide [Reglan] Med 11/01/16 12:13 Active 5 mg IVPUSH Q6H PRN Ondansetron [Zofran] Med 11/01/16 08:48 Active 4 mg IVPUSH Q4H PRN Pantoprazole [ProTONIX IV] Med 11/01/16 11:45 Active 20 mg IVPUSH DAILY Remove Patch Med 11/01/16 09:00 Active 1 ea TRDERM DAILY Medication Orders Al Hydroxide/Mg Hydroxide (Mag-Al Plus) 30 ml PO Q4H PRN PRN Reason: Heartburn Last Admin: 11/01/16 11:39 Dose: 30 ml Albuterol (Proventil Hfa) 0 gm INH Q4H PRN PRN Reason: Shortness of Breath Albuterol (Proventil Hfa) 0 gm INH BID [facility] Last Admin: 11/02/16 09:00 Dose: 1 puff Admin: 11/01/16 20:39 Dose: 1 puff Admin: 11/01/16 08:53 Dose: 1 puff Admin: 10/31/16 20:30 Dose: 1 puff Admin: 10/31/16 08:51 Dose: 1 puff Admin: 10/30/16 21:25 Dose: 1 puff Apixaban (Eliquis) 5 mg PO BID [facility] Last Admin: 11/01/16 20:58 Dose: 5 mg Admin: 11/01/16 10:30 Dose: 5 mg Diltiazem HCl (Cardizem Cd) 180 mg PO DAILY [facility] Last Admin: 11/01/16 09:02 Dose: 180 mg Admin: 10/31/16 08:29 Dose: 180 mg Enalaprilat (Vasotec Iv) 0.625 mg IVPUSH Q6H PRN PRN Reason: Hypertension Fluticasone Propionate (Flovent Hfa 44 Mcg) 0 gm INH BID [facility] Last Admin: 11/02/16 09:01 Dose: 1 puff Admin: 11/01/16 20:39 Dose: 1 puff Admin: 11/01/16 08:54 Dose: 1 puff Admin: 10/31/16 20:30 Dose: 1 puff Admin: 10/31/16 08:52 Dose: 1 puff Admin: 10/30/16 21:25 Dose: 1 puff Furosemide (Lasix) 20 mg PO DAILY PRN PRN Reason: Edema Hydromorphone HCl (Dilaudid) 1 mg IVPUSH Q1H PRN PRN Reason: Pain (severe 7-10) Last Admin: 11/02/16 04:30 Dose: 1 mg Admin: 11/01/16 22:08 Dose: 1 mg Admin: 11/01/16 18:06 Dose: 1 mg Admin: 11/01/16 11:41 Dose: 1 mg Admin: 10/31/16 20:45 Dose: 1 mg Admin: 10/31/16 09:20 Dose: 1 mg Admin: 10/31/16 04:29 Dose: 1 mg Admin: 10/30/16 21:30 Dose: 1 mg Admin: 10/30/16 16:55 Dose: 1 mg Cefoxitin Sodium 2 gm/ Premix 50 mls @ 100 mls/hr IV Q6H [facility] Last Admin: 11/02/16 06:06 Dose: 100 mls/hr Infusion: 11/01/16 23:59 Dose: 100 mls/hr Admin: 11/01/16 23:29 Dose: 100 mls/hr Infusion: 11/01/16 18:21 Dose: 100 mls/hr Admin: 11/01/16 17:51 Dose: 100 mls/hr Infusion: 11/01/16 12:21 Dose: 100 mls/hr Admin: 11/01/16 11:51 Dose: 100 mls/hr Infusion: 11/01/16 07:19 Dose: 100 mls/hr Admin: 11/01/16 06:49 Dose: 100 mls/hr Infusion: 11/01/16 01:14 Dose: 100 mls/hr Admin: 11/01/16 00:44 Dose: 100 mls/hr Infusion: 10/31/16 18:56 Dose: 100 mls/hr Admin: 10/31/16 18:26 Dose: 100 mls/hr Infusion: 10/31/16 12:58 Dose: 100 mls/hr Admin: 10/31/16 12:28 Dose: 100 mls/hr Infusion: 10/31/16 07:19 Dose: 100 mls/hr Admin: 10/31/16 06:49 Dose: 100 mls/hr Infusion: 10/31/16 00:52 Dose: 100 mls/hr Admin: 10/31/16 00:22 Dose: 100 mls/hr Infusion: 10/30/16 18:55 Dose: 100 mls/hr Admin: 10/30/16 18:25 Dose: 100 mls/hr Infusion: 10/30/16 13:27 Dose: 100 mls/hr Admin: 10/30/16 12:57 Dose: 100 mls/hr Lactated Ringer's (Ringers, Lactated) 1,000 mls @ 40 mls/hr IV ASDIRECTED [facility] Last Admin: 11/01/16 20:56 Dose: 40 mls/hr Infusion: 11/01/16 20:56 Dose: 40 mls/hr Admin: 11/01/16 00:45 Dose: 40 mls/hr Insulin Aspart (Novolog) 0 unit SUBCUT BIDAC [facility] PRN Reason: Protocol Last Admin: 11/02/16 07:03 Dose: 1 unit Admin: 11/01/16 17:46 Dose: 1 unit Admin: 11/01/16 06:57 Dose: 2 unit Admin: 10/31/16 16:56 Dose: 1 unit Admin: 10/31/16 12:20 Dose: 1 unit Lisinopril (Prinivil) 40 mg PO DAILY [facility] Last Admin: 11/01/16 09:03 Dose: 40 mg Admin: 10/31/16 08:29 Dose: 40 mg Metoclopramide HCl (Reglan) 5 mg IVPUSH Q6H PRN PRN Reason: Nausea Last Admin: 11/01/16 12:54 Dose: 5 mg Metoprolol Tartrate (Lopressor) 100 mg PO BID [facility] Last Admin: 11/01/16 20:57 Dose: 100 mg Admin: 11/01/16 09:02 Dose: 100 mg Admin: 10/31/16 20:36 Dose: 100 mg Admin: 10/31/16 08:19 Dose: 100 mg Admin: 10/30/16 20:59 Dose: 100 mg Miscellaneous Information (Remove Patch) 1 ea TRDERM DAILY [facility] Last Admin: 11/01/16 09:06 Dose: Nicotine (Habitrol) 14 mg TRDERM DAILY [facility] Last Admin: 11/01/16 09:04 Dose: Not Given Admin: 10/31/16 20:37 Dose: Not Given Ondansetron HCl (Zofran) 4 mg IVPUSH Q4H PRN PRN Reason: Nausea Last Admin: 11/01/16 09:06 Dose: 4 mg Pantoprazole Sodium (Protonix Iv) 20 mg IVPUSH DAILY [facility] Last Admin: 11/01/16 12:52 Dose: 20 mg Chlorthalidone 25 Mg 0 each PO DAILY [facility] Last Admin: 11/01/16 09:05 Dose: 25 each Admin: 10/31/16 11:44 Dose: Tiotropium [place] (Spiriva Handihaler) 18 mcg INH DAILY [facility] Last Admin: 11/02/16 09:01 Dose: 1 puff Admin: 11/01/16 08:54 Dose: 1 puff Admin: 10/31/16 08:51 Dose: 1 puff - Assessment Assessment (Free Text/Narrative):: Evolving postoperative ileus. 19,000 leukocytosis. Potassium of 3.3 hopefully corrected with potassium IV supplementation. Protonix given yesterday helped with heartburn as well as nausea. Continue antibiotics. Will try Dulcolax suppository.
[2016-11-02] MEDS: Lisinopril 20 MG Tab PO SCH (10:04)
[2016-11-02] MEDS: Apixaban 5 MG Tab PO SCH ×2 (10:04→21:05)
[2016-11-02] MEDS: Metoprolol Tartrate 100 MG Tab PO SCH ×2 (10:06→21:05)
[2016-11-02] MEDS: Diltiazem 180 MG Cap.CD PO SCH (10:07)
[2016-11-02] MEDS: Pantoprazole 40 MG Vial IVPUSH SCH (10:10)
[2016-11-02] MEDS: Nicotine 14 MG/24 Hr Patch TRDERM SCH (10:33)
[2016-11-02] MEDS ORDERED: Magnesium Sulfate/Water 2 GM in Premix Bag 1 BAG IV ONE (14:59)
[2016-11-02] MEDS: Lactated Ringers 1,000 ML IV SCH (21:07)
[2016-11-03] MEDS: HYDROmorphone 1 MG/ML Syringe IVPUSH PRN ×3 (04:10→18:51)
[2016-11-03] MEDS: cefOXitin 2 GM in Premix Bag 1 BAG IV SCH ×3 (06:16→18:16)
[2016-11-03] MEDS: Insulin Aspart 100 Units/ML 3 ML Pen SUBCUT SCH ×2 (06:16→16:37)
[2016-11-03] MEDS: Potassium Chloride 10 MEQ in Premix Bag 1 BAG IV SCH ×2 (06:55→08:54)
--- NOTE | 2016-11-03 07:39 | PCM.SURGPN ---
- General Info Date of Service: 11/03/16 POD#: 4 Functional Status: Reports: Pain Controlled, Tolerating Diet, Ambulating, Urinating, Incentive Spirometry - Review of Systems Gastrointestinal: Reports: Diarrhea, Flatus - Patient Data Vitals - Most Recent: Last Vital Signs Temp 37.2 C 11/03/16 04:15 Pulse 56 L 11/03/16 04:15 Resp 16 11/03/16 04:15 BP 162/83 H 11/03/16 04:15 Pulse Ox 95 11/03/16 04:15 Weight - Most Recent: 117.39 kg I&O - Last 24 Hours: Intake & Output 11/02/16 11/03/16 11/03/16 22:59 06:59 14:59 Intake Total 870 600 Output Total 1100 Balance -230 600 Lab Results Last 24 Hrs: Laboratory Results - last 24 hr 11/02/16 11/02/16 11/03/16 Range/Units 10:35 18:05 06:14 Sodium 135 L (136-145) mEq/L Potassium 3.4 L (3.5-5.1) mEq/L Chloride 98 (98-107) mEq/L Carbon Dioxide 30 (21-32) mEq/L Anion Gap 10.4 (5-15) BUN 16 (7-18) mg/dL Creatinine 0.9 (0.7-1.3) mg/dL Est Cr Clr Drug Dosing 86.71 mL/min Estimated GFR (MDRD) > 60 (>60) mL/min BUN/Creatinine Ratio 17.8 (14-18) Glucose 184 H (74-106) mg/dL POC Glucose 131 H 135 H (70-105) mg/dL Calcium 8.9 (8.5-10.1) mg/dL Magnesium 1.6 L (1.8-2.4) mg/dl Med Orders - Current: Current Medications Al Hydroxide/Mg Hydroxide (Mag-Al Plus) 30 ml PO Q4H PRN PRN Reason: Heartburn Last Admin: 11/01/16 11:39 Dose: 30 ml Albuterol (Proventil Hfa) 0 gm INH Q4H PRN PRN Reason: Shortness of Breath Albuterol (Proventil Hfa) 0 gm INH BID [facility] Last Admin: 11/02/16 20:57 Dose: 1 puff Apixaban (Eliquis) 5 mg PO BID [facility] Last Admin: 11/02/16 21:05 Dose: 5 mg Diltiazem HCl (Cardizem Cd) 180 mg PO DAILY [facility] Last Admin: 11/02/16 10:07 Dose: 180 mg Enalaprilat (Vasotec Iv) 0.625 mg IVPUSH Q6H PRN PRN Reason: Hypertension Fluticasone Propionate (Flovent Hfa 44 Mcg) 0 gm INH BID [facility] Last Admin: 11/02/16 20:57 Dose: 1 puff Furosemide (Lasix) 20 mg PO DAILY PRN PRN Reason: Edema Hydromorphone HCl (Dilaudid) 1 mg IVPUSH Q1H PRN PRN Reason: Pain (severe 7-10) Last Admin: 11/03/16 04:10 Dose: 1 mg Cefoxitin Sodium 2 gm/ Premix 50 mls @ 100 mls/hr IV Q6H [facility] Last Admin: 11/03/16 06:16 Dose: 100 mls/hr Lactated Ringer's (Ringers, Lactated) 1,000 mls @ 40 mls/hr IV ASDIRECTED [facility] Last Admin: 11/02/16 21:07 Dose: 40 mls/hr Potassium Chloride 10 meq/ (Premix) 100 mls @ 100 mls/hr IV Q1H [facility] Stop: 11/03/16 08:59 Last Admin: 11/03/16 06:55 Dose: 100 mls/hr Insulin Aspart (Novolog) 0 unit SUBCUT BIDAC [facility] PRN Reason: Protocol Last Admin: 11/03/16 06:16 Dose: Not Given Lisinopril (Prinivil) 40 mg PO DAILY [facility] Last Admin: 11/02/16 10:04 Dose: 40 mg Metoclopramide HCl (Reglan) 5 mg IVPUSH Q6H PRN PRN Reason: Nausea Last Admin: 11/01/16 12:54 Dose: 5 mg Metoprolol Tartrate (Lopressor) 100 mg PO BID [facility] Last Admin: 11/02/16 21:05 Dose: 100 mg Miscellaneous Information (Remove Patch) 1 ea TRDERM DAILY [facility] Last Admin: 11/02/16 10:37 Dose: Not Given Nicotine (Habitrol) 14 mg TRDERM DAILY [facility] Last Admin: 11/02/16 10:33 Dose: 14 mg Ondansetron HCl (Zofran) 4 mg IVPUSH Q4H PRN PRN Reason: Nausea Last Admin: 11/01/16 09:06 Dose: 4 mg Pantoprazole Sodium (Protonix Iv) 20 mg IVPUSH DAILY [facility] Last Admin: 11/02/16 10:10 Dose: 20 mg Chlorthalidone 25 Mg 0 each PO DAILY [facility] Last Admin: 11/02/16 10:36 Dose: 25 each Tiotropium [place] (Spiriva Handihaler) 18 mcg INH DAILY [facility] Last Admin: 11/02/16 09:01 Dose: 1 puff Discontinued Medications Albuterol (Proventil Neb Soln) 1.25 mg NEB ONETIME ONE Stop: 10/30/16 07:40 Last Admin: 10/30/16 07:59 Dose: 1.25 mg Bisacodyl (Dulcolax) 10 mg RECTAL ONETIME ONE Stop: 11/02/16 09:05 Last Admin: 11/02/16 10:32 Dose: 10 mg Bupivacaine HCl/Epinephrine Bitart (Marcaine 0.5%/Epinephrine 1:200,000) Confirm Administered Dose 50 ml .ROUTE .STK-MED ONE Stop: 10/30/16 07:26 Ephedrine Sulfate (Ephedrine Sulfate) Confirm Administered Dose 50 mg .ROUTE .STK-MED ONE Stop: 10/30/16 09:54 Fentanyl (Sublimaze) Confirm Administered Dose 250 mcg .ROUTE .STK-MED ONE Stop: 10/30/16 07:53 Fentanyl (Sublimaze) 50 mcg IVPUSH Q5M PRN PRN Reason: pain Stop: 10/30/16 18:00 Glycopyrrolate (Robinul) Confirm Administered Dose 0.6 mg .ROUTE .STK-MED ONE Stop: 10/30/16 09:54 Hydromorphone HCl (Dilaudid) Confirm Administered Dose 1 mg .ROUTE .STK-MED ONE Stop: 10/30/16 09:43 Hydromorphone HCl (Dilaudid) 0.5 mg IVPUSH Q15M PRN PRN Reason: Pain (severe 7-10) Stop: 10/30/16 10:46 Lactated Ringer's (Ringers, Lactated) 1,000 mls @ 125 mls/hr IV ASDIRECTED [facility] Last Admin: 10/30/16 07:25 Dose: 125 mls/hr Cefoxitin Sodium 2 gm/ Premix 50 mls @ 100 mls/hr IV ONETIME ONE Stop: 10/30/16 09:14 Last Admin: 10/30/16 13:02 Dose: Not Given Lactated Ringer's (Ringers, Lactated) 1,000 mls @ 40 mls/hr IV ASDIRECTED [facility] Last Admin: 10/31/16 12:31 Dose: 125 mls/hr Potassium Chloride 10 meq/ (Premix) 100 mls @ 100 mls/hr IV Q1H [facility] Stop: 11/01/16 13:59 Last Admin: 11/01/16 15:01 Dose: 100 mls/hr Potassium Chloride 10 meq/ (Premix) 100 mls @ 100 mls/hr IV Q1H [facility] Stop: 11/01/16 21:59 Last Admin: 11/01/16 22:07 Dose: 100 mls/hr Potassium Chloride 10 meq/ (Premix) 100 mls @ 100 mls/hr IV Q1H [facility] Stop: 11/02/16 05:59 Last Admin: 11/02/16 06:03 Dose: 100 mls/hr Potassium Chloride 10 meq/ (Premix) 100 mls @ 100 mls/hr IV Q1H [facility] Stop: 11/02/16 16:59 Last Admin: 11/02/16 16:54 Dose: 100 mls/hr Potassium Chloride 10 meq/ (Premix) 100 mls @ 100 mls/hr IV Q1H [facility] Stop: 11/03/16 00:59 Last Admin: 11/02/16 23:30 Dose: 100 mls/hr Magnesium Sulfate 2 gm/ Premix 50 mls @ 25 mls/hr IV ONETIME ONE Stop: 11/02/16 16:58 Last Admin: 11/02/16 15:57 Dose: 25 mls/hr Lidocaine/Epinephrine (Xylocaine 1% With Epinephrine 1:100,000) Confirm Administered Dose 20 ml .ROUTE .STK-MED ONE Stop: 10/30/16 07:26 Lidocaine/Sodium Bicarbonate (Buffered Lidocaine 1% In Ns 8.4%) 0.25 ml IV ONETIME PRN PRN Reason: Prior to IV Start Stop: 10/30/16 16:00 Last Admin: 10/30/16 07:24 Dose: 0.25 ml Midazolam HCl (Versed 1 Mg/Ml) Confirm Administered Dose 2 mg .ROUTE .STK-MED ONE Stop: 10/30/16 07:53 Neostigmine Methylsulfate (Neostigmine Methylsulfate) Confirm Administered Dose 10 mg .ROUTE .STK-MED ONE Stop: 10/30/16 09:54 Ondansetron HCl (Zofran) Confirm Administered Dose 4 mg .ROUTE .STK-MED ONE Stop: 10/30/16 07:53 Ondansetron HCl (Zofran) 4 mg IVPUSH ONETIME PRN PRN Reason: Nausea/Vomiting Stop: 10/30/16 18:00 Phenylephrine HCl (Joe-Synephrine) Confirm Administered Dose 10 mg .ROUTE .STK- MED ONE Stop: 10/30/16 09:54 Propofol (Diprivan 20 Ml) Confirm Administered Dose 200 mg .ROUTE .STK-MED ONE Stop: 10/30/16 07:53 Rocuronium [place] (Zemuron) Confirm Administered Dose 50 mg .ROUTE .STK-MED ONE Stop: 10/30/16 07:53 Rocuronium [place] (Zemuron) Confirm Administered Dose 50 mg .ROUTE .STK-MED ONE Stop: 10/30/16 09:43 Sodium Chloride (Saline Flush) 10 ml FLUSH ASDIRECTED PRN PRN Reason: Keep Vein Open Stop: 10/30/16 23:00 - Exam Wound/Incisions: Healing Well GI/Abdominal Exam: Soft, Non-Tender - Problem List Review Problem List Initiated/Reviewed/Updated: Yes - My Orders Last 24 Hours: Active Orders 24 hr Category Date Time Status Full Liquid Diet [DIET] Diet 11/03/16 Lunch Ordered BMP [BASIC METABOLIC PANEL,BMP] [CHEM] Routine Lab 11/03/16 07:37 Ordered MAGNESIUM [CHEM] Routine Lab 11/03/16 07:37 Ordered Potassium Chloride [KCl 10 MEQ in Water 100 ML] 10 meq Med 11/03/16 07:00 Active Premix Bag 1 bag IV Q1H Medication Orders Al Hydroxide/Mg Hydroxide (Mag-Al Plus) 30 ml PO Q4H PRN PRN Reason: Heartburn Last Admin: 11/01/16 11:39 Dose: 30 ml Albuterol (Proventil Hfa) 0 gm INH Q4H PRN PRN Reason: Shortness of Breath Albuterol (Proventil Hfa) 0 gm INH BID [facility] Last Admin: 11/02/16 20:57 Dose: 1 puff Admin: 11/02/16 09:00 Dose: 1 puff Admin: 11/01/16 20:39 Dose: 1 puff Admin: 11/01/16 08:53 Dose: 1 puff Admin: 10/31/16 20:30 Dose: 1 puff Admin: 10/31/16 08:51 Dose: 1 puff Admin: 10/30/16 21:25 Dose: 1 puff Apixaban (Eliquis) 5 mg PO BID [facility] Last Admin: 11/02/16 21:05 Dose: 5 mg Admin: 11/02/16 10:04 Dose: 5 mg Admin: 11/01/16 20:58 Dose: 5 mg Admin: 11/01/16 10:30 Dose: 5 mg Diltiazem HCl (Cardizem Cd) 180 mg PO DAILY [facility] Last Admin: 11/02/16 10:07 Dose: 180 mg Admin: 11/01/16 09:02 Dose: 180 mg Admin: 10/31/16 08:29 Dose: 180 mg Enalaprilat (Vasotec Iv) 0.625 mg IVPUSH Q6H PRN PRN Reason: Hypertension Fluticasone Propionate (Flovent Hfa 44 Mcg) 0 gm INH BID [facility] Last Admin: 11/02/16 20:57 Dose: 1 puff Admin: 11/02/16 09:01 Dose: 1 puff Admin: 11/01/16 20:39 Dose: 1 puff Admin: 11/01/16 08:54 Dose: 1 puff Admin: 10/31/16 20:30 Dose: 1 puff Admin: 10/31/16 08:52 Dose: 1 puff Admin: 10/30/16 21:25 Dose: 1 puff Furosemide (Lasix) 20 mg PO DAILY PRN PRN Reason: Edema Hydromorphone HCl (Dilaudid) 1 mg IVPUSH Q1H PRN PRN Reason: Pain (severe 7-10) Last Admin: 11/03/16 04:10 Dose: 1 mg Admin: 11/02/16 15:54 Dose: 1 mg Admin: 11/02/16 10:34 Dose: 1 mg Admin: 11/02/16 04:30 Dose: 1 mg Admin: 11/01/16 22:08 Dose: 1 mg Admin: 11/01/16 18:06 Dose: 1 mg Admin: 11/01/16 11:41 Dose: 1 mg Admin: 10/31/16 20:45 Dose: 1 mg Admin: 10/31/16 09:20 Dose: 1 mg Admin: 10/31/16 04:29 Dose: 1 mg Admin: 10/30/16 21:30 Dose: 1 mg Admin: 10/30/16 16:55 Dose: 1 mg Cefoxitin Sodium 2 gm/ Premix 50 mls @ 100 mls/hr IV Q6H [facility] Last Admin: 11/03/16 06:16 Dose: 100 mls/hr Infusion: 11/03/16 00:01 Dose: 100 mls/hr Admin: 11/02/16 23:31 Dose: 100 mls/hr Infusion: 11/02/16 18:38 Dose: 100 mls/hr Admin: 11/02/16 18:08 Dose: 100 mls/hr Infusion: 11/02/16 12:42 Dose: 100 mls/hr Admin: 11/02/16 12:12 Dose: 100 mls/hr Infusion: 11/02/16 06:36 Dose: 100 mls/hr Admin: 11/02/16 06:06 Dose: 100 mls/hr Infusion: 11/01/16 23:59 Dose: 100 mls/hr Admin: 11/01/16 23:29 Dose: 100 mls/hr Infusion: 11/01/16 18:21 Dose: 100 mls/hr Admin: 11/01/16 17:51 Dose: 100 mls/hr Infusion: 11/01/16 12:21 Dose: 100 mls/hr Admin: 11/01/16 11:51 Dose: 100 mls/hr Infusion: 11/01/16 07:19 Dose: 100 mls/hr Admin: 11/01/16 06:49 Dose: 100 mls/hr Infusion: 11/01/16 01:14 Dose: 100 mls/hr Admin: 11/01/16 00:44 Dose: 100 mls/hr Infusion: 10/31/16 18:56 Dose: 100 mls/hr Admin: 10/31/16 18:26 Dose: 100 mls/hr Infusion: 10/31/16 12:58 Dose: 100 mls/hr Admin: 10/31/16 12:28 Dose: 100 mls/hr Infusion: 10/31/16 07:19 Dose: 100 mls/hr Admin: 10/31/16 06:49 Dose: 100 mls/hr Infusion: 10/31/16 00:52 Dose: 100 mls/hr Admin: 10/31/16 00:22 Dose: 100 mls/hr Infusion: 10/30/16 18:55 Dose: 100 mls/hr Admin: 10/30/16 18:25 Dose: 100 mls/hr Infusion: 10/30/16 13:27 Dose: 100 mls/hr Admin: 10/30/16 12:57 Dose: 100 mls/hr Lactated Ringer's (Ringers, Lactated) 1,000 mls @ 40 mls/hr IV ASDIRECTED [facility] Last Admin: 11/02/16 21:07 Dose: 40 mls/hr Infusion: 11/02/16 21:07 Dose: 40 mls/hr Admin: 11/01/16 20:56 Dose: 40 mls/hr Infusion: 11/01/16 20:56 Dose: 40 mls/hr Admin: 11/01/16 00:45 Dose: 40 mls/hr Potassium Chloride 10 meq/ (Premix) 100 mls @ 100 mls/hr IV Q1H [facility] Stop: 11/03/16 08:59 Last Admin: 11/03/16 06:55 Dose: 100 mls/hr Insulin Aspart (Novolog) 0 unit SUBCUT BIDAC [facility] PRN Reason: Protocol Last Admin: 11/03/16 06:16 Dose: Admin: 11/02/16 18:09 Dose: Not Given Admin: 11/02/16 07:03 Dose: 1 unit Admin: 11/01/16 17:46 Dose: 1 unit Admin: 11/01/16 06:57 Dose: 2 unit Admin: 10/31/16 16:56 Dose: 1 unit Admin: 10/31/16 12:20 Dose: 1 unit Lisinopril (Prinivil) 40 mg PO DAILY [facility] Last Admin: 11/02/16 10:04 Dose: 40 mg Admin: 11/01/16 09:03 Dose: 40 mg Admin: 10/31/16 08:29 Dose: 40 mg Metoclopramide HCl (Reglan) 5 mg IVPUSH Q6H PRN PRN Reason: Nausea Last Admin: 11/01/16 12:54 Dose: 5 mg Metoprolol Tartrate (Lopressor) 100 mg PO BID [facility] Last Admin: 11/02/16 21:05 Dose: 100 mg Admin: 11/02/16 10:06 Dose: 100 mg Admin: 11/01/16 20:57 Dose: 100 mg Admin: 11/01/16 09:02 Dose: 100 mg Admin: 10/31/16 20:36 Dose: 100 mg Admin: 10/31/16 08:19 Dose: 100 mg Admin: 10/30/16 20:59 Dose: 100 mg Miscellaneous Information (Remove Patch) 1 ea TRDERM DAILY [facility] Last Admin: 11/02/16 10:37 Dose: Admin: 11/01/16 09:06 Dose: Nicotine (Habitrol) 14 mg TRDERM DAILY [facility] Last Admin: 11/02/16 10:33 Dose: 14 mg Admin: 11/01/16 09:04 Dose: Not Given Admin: 10/31/16 20:37 Dose: Not Given Ondansetron HCl (Zofran) 4 mg IVPUSH Q4H PRN PRN Reason: Nausea Last Admin: 11/01/16 09:06 Dose: 4 mg Pantoprazole Sodium (Protonix Iv) 20 mg IVPUSH DAILY [facility] Last Admin: 11/02/16 10:10 Dose: 20 mg Admin: 11/01/16 12:52 Dose: 20 mg Chlorthalidone 25 Mg 0 each PO DAILY [facility] Last Admin: 11/02/16 10:36 Dose: 25 each Admin: 11/01/16 09:05 Dose: 25 each Admin: 10/31/16 11:44 Dose: Tiotropium [place] (Spiriva Handihaler) 18 mcg INH DAILY [facility] Last Admin: 11/02/16 09:01 Dose: 1 puff Admin: 11/01/16 08:54 Dose: 1 puff Admin: 10/31/16 08:51 Dose: 1 puff - Assessment Assessment (Free Text/Narrative):: Doing well. - Plan Plan (Free Text/Narrative):: Replace potassium and magnesium as indicated. Advance diet to full liquid diet today.
[2016-11-03] MEDS: Diltiazem 180 MG Cap.CD PO SCH (08:36)
[2016-11-03] MEDS: Lisinopril 20 MG Tab PO SCH (08:36)
[2016-11-03] MEDS: Apixaban 5 MG Tab PO SCH ×2 (08:36→21:24)
[2016-11-03] MEDS: Metoprolol Tartrate 100 MG Tab PO SCH ×2 (08:37→21:25)
[2016-11-03] MEDS: Pantoprazole 40 MG Vial IVPUSH SCH (08:38)
[2016-11-03] MEDS: Nicotine 14 MG/24 Hr Patch TRDERM SCH (09:01)
[2016-11-03] MEDS: Fluticasone Propionate 44 MCG/Puff 10.6 GM Inhaler INH SCH ×2 (09:06→20:04)
[2016-11-03] MEDS: Tiotropium Inhaler 18 MCG Inhalation Powder Cap Kit of 5 INH SCH (09:06)
[2016-11-03] MEDS: Albuterol 6.7 GM Inhaler INH SCH ×2 (09:06→20:04)
[2016-11-03] MEDS: Lactated Ringers 1,000 ML IV SCH (21:24)
[2016-11-03] MEDS: Acetaminophen/oxyCODONE 325-5 MG Tab PO PRN (21:24)
[2016-11-04] MEDS: cefOXitin 2 GM in Premix Bag 1 BAG IV SCH ×5 (01:37→17:44)
[2016-11-04] MEDS: Aluminum Hydroxide/Magnesium Hydroxide/Simethicone Susp 30 ML Cup PO PRN (05:46)
[2016-11-04] MEDS: Acetaminophen/oxyCODONE 325-5 MG Tab PO PRN ×3 (05:46→21:54)
[2016-11-04] MEDS ORDERED: Sodium Chloride 0.9% 10 ML Syringe FLUSH PRN (07:28)
[2016-11-04] MEDS ORDERED: Magnesium Sulfate/Water 2 GM in Premix Bag 1 BAG IV ONE (07:28)
--- NOTE | 2016-11-04 07:32 | PCM.SURGPN ---
- General Info Functional Status: Reports: Pain Controlled, Tolerating Diet, Ambulating, Urinating - Review of Systems Gastrointestinal: Reports: Flatus - Patient Data Vitals - Most Recent: Last Vital Signs Temp 36.9 C 11/04/16 06:00 Pulse 57 L 11/04/16 06:00 Resp 18 11/04/16 06:00 BP 152/73 H 11/04/16 06:00 Pulse Ox 96 11/04/16 06:00 Weight - Most Recent: 111.782 kg I&O - Last 24 Hours: Intake & Output 11/03/16 11/04/16 11/04/16 22:59 06:59 14:59 Intake Total 3508 1106 Balance 3508 1106 Lab Results Last 24 Hrs: Laboratory Results - last 24 hr 11/03/16 11/03/16 11/04/16 Range/Units 08:18 16:27 05:52 Sodium 135 L (136-145) mEq/L Potassium 3.6 (3.5-5.1) mEq/L Chloride 98 (98-107) mEq/L Carbon Dioxide 31 (21-32) mEq/L Anion Gap 9.6 (5-15) BUN 16 (7-18) mg/dL Creatinine 1.0 (0.7-1.3) mg/dL Est Cr Clr Drug Dosing 78.03 mL/min Estimated GFR (MDRD) > 60 (>60) mL/min BUN/Creatinine Ratio 16.0 (14-18) Glucose 144 H (74-106) mg/dL POC Glucose 180 H 168 H (70-105) mg/dL Calcium 9.2 (8.5-10.1) mg/dL Magnesium 1.6 L (1.8-2.4) mg/dl Med Orders - Current: Current Medications Al Hydroxide/Mg Hydroxide (Mag-Al Plus) 30 ml PO Q4H PRN PRN Reason: Heartburn Last Admin: 11/04/16 05:46 Dose: 30 ml Albuterol (Proventil Hfa) 0 gm INH Q4H PRN PRN Reason: Shortness of Breath Albuterol (Proventil Hfa) 0 gm INH BID [facility] Last Admin: 11/03/16 20:04 Dose: 1 puff Apixaban (Eliquis) 5 mg PO BID [facility] Last Admin: 11/03/16 21:24 Dose: 5 mg Diltiazem HCl (Cardizem Cd) 180 mg PO DAILY [facility] Last Admin: 11/03/16 08:36 Dose: 180 mg Enalaprilat (Vasotec Iv) 0.625 mg IVPUSH Q6H PRN PRN Reason: Hypertension Fluticasone Propionate (Flovent Hfa 44 Mcg) 0 gm INH BID [facility] Last Admin: 11/03/16 20:04 Dose: 1 puff Furosemide (Lasix) 20 mg PO DAILY PRN PRN Reason: Edema Hydromorphone HCl (Dilaudid) 1 mg IVPUSH Q1H PRN PRN Reason: Pain (severe 7-10) Last Admin: 11/03/16 18:51 Dose: 1 mg Cefoxitin Sodium 2 gm/ Premix 50 mls @ 100 mls/hr IV Q6H [facility] Last Admin: 11/04/16 05:47 Dose: 100 mls/hr Lactated Ringer's (Ringers, Lactated) 1,000 mls @ 40 mls/hr IV ASDIRECTED [facility] Last Admin: 11/03/16 21:24 Dose: 40 mls/hr Magnesium Sulfate 2 gm/ Premix 50 mls @ 25 mls/hr IV ONETIME ONE Stop: 11/04/16 09:27 Insulin Aspart (Novolog) 0 unit SUBCUT BIDAC [facility] PRN Reason: Protocol Last Admin: 11/03/16 16:37 Dose: 1 unit Lisinopril (Prinivil) 40 mg PO DAILY [facility] Last Admin: 11/03/16 08:36 Dose: 40 mg Metoclopramide HCl (Reglan) 5 mg IVPUSH Q6H PRN PRN Reason: Nausea Last Admin: 11/01/16 12:54 Dose: 5 mg Metoprolol Tartrate (Lopressor) 100 mg PO BID [facility] Last Admin: 11/03/16 21:25 Dose: 100 mg Miscellaneous Information (Remove Patch) 1 ea TRDERM DAILY [facility] Last Admin: 11/03/16 09:12 Dose: 1 ea Nicotine (Habitrol) 14 mg TRDERM DAILY [facility] Last Admin: 11/03/16 09:01 Dose: 14 mg Ondansetron HCl (Zofran) 4 mg IVPUSH Q4H PRN PRN Reason: Nausea Last Admin: 11/01/16 09:06 Dose: 4 mg Oxycodone/Acetaminophen (Percocet 325-5 Mg) 2 tab PO Q4H PRN PRN Reason: Pain Last Admin: 11/04/16 05:46 Dose: 2 tab Pantoprazole Sodium (Protonix Iv) 20 mg IVPUSH Q12H [facility] Chlorthalidone 25 Mg 0 each PO DAILY [facility] Last Admin: 11/03/16 08:39 Dose: 25 each Potassium Chloride (Klor-Con M20) 20 meq PO TID [facility] Sodium Chloride (Saline Flush) 10 ml FLUSH ASDIRECTED PRN PRN Reason: Keep Vein Open Tiotropium Chandler (Spiriva Handihaler) 18 mcg INH DAILY [facility] Last Admin: 11/03/16 09:06 Dose: 1 puff Discontinued Medications Albuterol (Proventil Neb Soln) 1.25 mg NEB ONETIME ONE Stop: 10/30/16 07:40 Last Admin: 10/30/16 07:59 Dose: 1.25 mg Bisacodyl (Dulcolax) 10 mg RECTAL ONETIME ONE Stop: 11/02/16 09:05 Last Admin: 11/02/16 10:32 Dose: 10 mg Bupivacaine HCl/Epinephrine Bitart (Marcaine 0.5%/Epinephrine 1:200,000) Confirm Administered Dose 50 ml .ROUTE .STK-MED ONE Stop: 10/30/16 07:26 Ephedrine Sulfate (Ephedrine Sulfate) Confirm Administered Dose 50 mg .ROUTE .STK-MED ONE Stop: 10/30/16 09:54 Fentanyl (Sublimaze) Confirm Administered Dose 250 mcg .ROUTE .STK-MED ONE Stop: 10/30/16 07:53 Fentanyl (Sublimaze) 50 mcg IVPUSH Q5M PRN PRN Reason: pain Stop: 10/30/16 18:00 Glycopyrrolate (Robinul) Confirm Administered Dose 0.6 mg .ROUTE .STK-MED ONE Stop: 10/30/16 09:54 Hydromorphone HCl (Dilaudid) Confirm Administered Dose 1 mg .ROUTE .STK-MED ONE Stop: 10/30/16 09:43 Hydromorphone HCl (Dilaudid) 0.5 mg IVPUSH Q15M PRN PRN Reason: Pain (severe 7-10) Stop: 10/30/16 10:46 Lactated Ringer's (Ringers, Lactated) 1,000 mls @ 125 mls/hr IV ASDIRECTED [facility] Last Admin: 10/30/16 07:25 Dose: 125 mls/hr Cefoxitin Sodium 2 gm/ Premix 50 mls @ 100 mls/hr IV ONETIME ONE Stop: 10/30/16 09:14 Last Admin: 10/30/16 13:02 Dose: Not Given Lactated Ringer's (Ringers, Lactated) 1,000 mls @ 40 mls/hr IV ASDIRECTED [facility] Last Admin: 10/31/16 12:31 Dose: 125 mls/hr Potassium Chloride 10 meq/ (Premix) 100 mls @ 100 mls/hr IV Q1H [facility] Stop: 11/01/16 13:59 Last Admin: 11/01/16 15:01 Dose: 100 mls/hr Potassium Chloride 10 meq/ (Premix) 100 mls @ 100 mls/hr IV Q1H [facility] Stop: 11/01/16 21:59 Last Admin: 11/01/16 22:07 Dose: 100 mls/hr Potassium Chloride 10 meq/ (Premix) 100 mls @ 100 mls/hr IV Q1H [facility] Stop: 11/02/16 05:59 Last Admin: 11/02/16 06:03 Dose: 100 mls/hr Potassium Chloride 10 meq/ (Premix) 100 mls @ 100 mls/hr IV Q1H [facility] Stop: 11/02/16 16:59 Last Admin: 11/02/16 16:54 Dose: 100 mls/hr Potassium Chloride 10 meq/ (Premix) 100 mls @ 100 mls/hr IV Q1H [facility] Stop: 11/03/16 00:59 Last Admin: 11/02/16 23:30 Dose: 100 mls/hr Potassium Chloride 10 meq/ (Premix) 100 mls @ 100 mls/hr IV Q1H [facility] Stop: 11/03/16 08:59 Last Admin: 11/03/16 08:54 Dose: 100 mls/hr Magnesium Sulfate 2 gm/ Premix 50 mls @ 25 mls/hr IV ONETIME ONE Stop: 11/02/16 16:58 Last Admin: 11/02/16 15:57 Dose: 25 mls/hr Lidocaine/Epinephrine (Xylocaine 1% With Epinephrine 1:100,000) Confirm Administered Dose 20 ml .ROUTE .STK-MED ONE Stop: 10/30/16 07:26 Lidocaine/Sodium Bicarbonate (Buffered Lidocaine 1% In Ns 8.4%) 0.25 ml IV ONETIME PRN PRN Reason: Prior to IV Start Stop: 10/30/16 16:00 Last Admin: 10/30/16 07:24 Dose: 0.25 ml Midazolam HCl (Versed 1 Mg/Ml) Confirm Administered Dose 2 mg .ROUTE .STK-MED ONE Stop: 10/30/16 07:53 Neostigmine Methylsulfate (Neostigmine Methylsulfate) Confirm Administered Dose 10 mg .ROUTE .STK-MED ONE Stop: 10/30/16 09:54 Ondansetron HCl (Zofran) Confirm Administered Dose 4 mg .ROUTE .STK-MED ONE Stop: 10/30/16 07:53 Ondansetron HCl (Zofran) 4 mg IVPUSH ONETIME PRN PRN Reason: Nausea/Vomiting Stop: 10/30/16 18:00 Pantoprazole Sodium (Protonix Iv) 20 mg IVPUSH DAILY [facility] Last Admin: 11/03/16 08:38 Dose: 20 mg Phenylephrine HCl (Joe-Synephrine) Confirm Administered Dose 10 mg .ROUTE .STK- MED ONE Stop: 10/30/16 09:54 Propofol (Diprivan 20 Ml) Confirm Administered Dose 200 mg .ROUTE .STK-MED ONE Stop: 10/30/16 07:53 Rocuronium Chandler (Zemuron) Confirm Administered Dose 50 mg .ROUTE .STK-MED ONE Stop: 10/30/16 07:53 Rocuronium Chandler (Zemuron) Confirm Administered Dose 50 mg .ROUTE .STK-MED ONE Stop: 10/30/16 09:43 Sodium Chloride (Saline Flush) 10 ml FLUSH ASDIRECTED PRN PRN Reason: Keep Vein Open Stop: 10/30/16 23:00 - Exam Wound/Incisions: Healing Well, Dressing Dry and Intact GI/Abdominal Exam: Soft, Non-Tender, No Distention - Problem List Review Problem List Initiated/Reviewed/Updated: Yes - My Orders Last 24 Hours: Active Orders 24 hr Category Date Time Status Full Liquid Diet [DIET] Diet 11/03/16 Lunch Active Regular Diet [DIET] Diet 11/04/16 Lunch Ordered Acetaminophen/oxyCODONE [Percocet 325-5 MG] Med 11/03/16 11:06 Active 2 tab PO Q4H PRN Magnesium Sulfate/Water [Magnesium Sulfate 2 GM in Med 11/04/16 07:28 Ordered Water 50 ML] 2 gm Premix Bag 1 bag IV ONETIME Pantoprazole [ProTONIX IV] Med 11/04/16 07:30 Ordered 20 mg IVPUSH Q12H Potassium Chloride [Klor-Con M20] Med 11/04/16 07:30 Ordered 20 meq PO TID Sodium Chloride 0.9% [Saline Flush] Med 11/04/16 07:28 Ordered 10 ml FLUSH ASDIRECTED PRN Assess Discharge Needs [OM.PC] Routine Oth 11/04/16 07:30 Ordered Convert IV to Peripheral Lock [Convert IV to Saline Ot 11/04/16 07:28 Ordered Lock] [OM.PC] Routine Peripheral IV Discontinue [OM.PC] Routine Oth 11/04/16 07:28 Ordered Medication Orders Al Hydroxide/Mg Hydroxide (Mag-Al Plus) 30 ml PO Q4H PRN PRN Reason: Heartburn Last Admin: 11/04/16 05:46 Dose: 30 ml Admin: 11/01/16 11:39 Dose: 30 ml Albuterol (Proventil Hfa) 0 gm INH Q4H PRN PRN Reason: Shortness of Breath Albuterol (Proventil Hfa) 0 gm INH BID [facility] Last Admin: 11/03/16 20:04 Dose: 1 puff Admin: 11/03/16 09:06 Dose: 1 puff Admin: 11/02/16 20:57 Dose: 1 puff Admin: 11/02/16 09:00 Dose: 1 puff Admin: 11/01/16 20:39 Dose: 1 puff Admin: 11/01/16 08:53 Dose: 1 puff Admin: 10/31/16 20:30 Dose: 1 puff Admin: 10/31/16 08:51 Dose: 1 puff Admin: 10/30/16 21:25 Dose: 1 puff Apixaban (Eliquis) 5 mg PO BID [facility] Last Admin: 11/03/16 21:24 Dose: 5 mg Admin: 11/03/16 08:36 Dose: 5 mg Admin: 11/02/16 21:05 Dose: 5 mg Admin: 11/02/16 10:04 Dose: 5 mg Admin: 11/01/16 20:58 Dose: 5 mg Admin: 11/01/16 10:30 Dose: 5 mg Diltiazem HCl (Cardizem Cd) 180 mg PO DAILY [facility] Last Admin: 11/03/16 08:36 Dose: 180 mg Admin: 11/02/16 10:07 Dose: 180 mg Admin: 11/01/16 09:02 Dose: 180 mg Admin: 10/31/16 08:29 Dose: 180 mg Enalaprilat (Vasotec Iv) 0.625 mg IVPUSH Q6H PRN PRN Reason: Hypertension Fluticasone Propionate (Flovent Hfa 44 Mcg) 0 gm INH BID [facility] Last Admin: 11/03/16 20:04 Dose: 1 puff Admin: 11/03/16 09:06 Dose: 1 puff Admin: 11/02/16 20:57 Dose: 1 puff Admin: 11/02/16 09:01 Dose: 1 puff Admin: 11/01/16 20:39 Dose: 1 puff Admin: 11/01/16 08:54 Dose: 1 puff Admin: 10/31/16 20:30 Dose: 1 puff Admin: 10/31/16 08:52 Dose: 1 puff Admin: 10/30/16 21:25 Dose: 1 puff Furosemide (Lasix) 20 mg PO DAILY PRN PRN Reason: Edema Hydromorphone HCl (Dilaudid) 1 mg IVPUSH Q1H PRN PRN Reason: Pain (severe 7-10) Last Admin: 11/03/16 18:51 Dose: 1 mg Admin: 11/03/16 10:39 Dose: 1 mg Admin: 11/03/16 04:10 Dose: 1 mg Admin: 11/02/16 15:54 Dose: 1 mg Admin: 11/02/16 10:34 Dose: 1 mg Admin: 11/02/16 04:30 Dose: 1 mg Admin: 11/01/16 22:08 Dose: 1 mg Admin: 11/01/16 18:06 Dose: 1 mg Admin: 11/01/16 11:41 Dose: 1 mg Admin: 10/31/16 20:45 Dose: 1 mg Admin: 10/31/16 09:20 Dose: 1 mg Admin: 10/31/16 04:29 Dose: 1 mg Admin: 10/30/16 21:30 Dose: 1 mg Admin: 10/30/16 16:55 Dose: 1 mg Cefoxitin Sodium 2 gm/ Premix 50 mls @ 100 mls/hr IV Q6H [facility] Last Admin: 11/04/16 05:47 Dose: 100 mls/hr Infusion: 11/04/16 02:07 Dose: 100 mls/hr Admin: 11/04/16 01:37 Dose: 100 mls/hr Infusion: 11/03/16 18:46 Dose: 100 mls/hr Admin: 11/03/16 18:16 Dose: 100 mls/hr Infusion: 11/03/16 12:30 Dose: 100 mls/hr Admin: 11/03/16 12:00 Dose: 100 mls/hr Infusion: 11/03/16 06:46 Dose: 100 mls/hr Admin: 11/03/16 06:16 Dose: 100 mls/hr Infusion: 11/03/16 00:01 Dose: 100 mls/hr Admin: 11/02/16 23:31 Dose: 100 mls/hr Infusion: 11/02/16 18:38 Dose: 100 mls/hr Admin: 11/02/16 18:08 Dose: 100 mls/hr Infusion: 11/02/16 12:42 Dose: 100 mls/hr Admin: 11/02/16 12:12 Dose: 100 mls/hr Infusion: 11/02/16 06:36 Dose: 100 mls/hr Admin: 11/02/16 06:06 Dose: 100 mls/hr Infusion: 11/01/16 23:59 Dose: 100 mls/hr Admin: 11/01/16 23:29 Dose: 100 mls/hr Infusion: 11/01/16 18:21 Dose: 100 mls/hr Admin: 11/01/16 17:51 Dose: 100 mls/hr Infusion: 11/01/16 12:21 Dose: 100 mls/hr Admin: 11/01/16 11:51 Dose: 100 mls/hr Infusion: 11/01/16 07:19 Dose: 100 mls/hr Admin: 11/01/16 06:49 Dose: 100 mls/hr Infusion: 11/01/16 01:14 Dose: 100 mls/hr Admin: 11/01/16 00:44 Dose: 100 mls/hr Infusion: 10/31/16 18:56 Dose: 100 mls/hr Admin: 10/31/16 18:26 Dose: 100 mls/hr Infusion: 10/31/16 12:58 Dose: 100 mls/hr Admin: 10/31/16 12:28 Dose: 100 mls/hr Infusion: 10/31/16 07:19 Dose: 100 mls/hr Admin: 10/31/16 06:49 Dose: 100 mls/hr Infusion: 10/31/16 00:52 Dose: 100 mls/hr Admin: 10/31/16 00:22 Dose: 100 mls/hr Infusion: 10/30/16 18:55 Dose: 100 mls/hr Admin: 10/30/16 18:25 Dose: 100 mls/hr Infusion: 10/30/16 13:27 Dose: 100 mls/hr Admin: 10/30/16 12:57 Dose: 100 mls/hr Lactated Ringer's (Ringers, Lactated) 1,000 mls @ 40 mls/hr IV ASDIRECTED [facility] Last Admin: 11/03/16 21:24 Dose: 40 mls/hr Infusion: 11/03/16 21:24 Dose: 40 mls/hr Admin: 11/02/16 21:07 Dose: 40 mls/hr Infusion: 11/02/16 21:07 Dose: 40 mls/hr Admin: 11/01/16 20:56 Dose: 40 mls/hr Infusion: 11/01/16 20:56 Dose: 40 mls/hr Admin: 11/01/16 00:45 Dose: 40 mls/hr Magnesium Sulfate 2 gm/ Premix 50 mls @ 25 mls/hr IV ONETIME ONE Stop: 11/04/16 09:27 Insulin Aspart (Novolog) 0 unit SUBCUT BIDAC [facility] PRN Reason: Protocol Last Admin: 11/03/16 16:37 Dose: 1 unit Admin: 11/03/16 06:16 Dose: Admin: 11/02/16 18:09 Dose: Not Given Admin: 11/02/16 07:03 Dose: 1 unit Admin: 11/01/16 17:46 Dose: 1 unit Admin: 11/01/16 06:57 Dose: 2 unit Admin: 10/31/16 16:56 Dose: 1 unit Admin: 10/31/16 12:20 Dose: 1 unit Lisinopril (Prinivil) 40 mg PO DAILY [facility] Last Admin: 11/03/16 08:36 Dose: 40 mg Admin: 11/02/16 10:04 Dose: 40 mg Admin: 11/01/16 09:03 Dose: 40 mg Admin: 10/31/16 08:29 Dose: 40 mg Metoclopramide HCl (Reglan) 5 mg IVPUSH Q6H PRN PRN Reason: Nausea Last Admin: 11/01/16 12:54 Dose: 5 mg Metoprolol Tartrate (Lopressor) 100 mg PO BID [facility] Last Admin: 11/03/16 21:25 Dose: 100 mg Admin: 11/03/16 08:37 Dose: 100 mg Admin: 11/02/16 21:05 Dose: 100 mg Admin: 11/02/16 10:06 Dose: 100 mg Admin: 11/01/16 20:57 Dose: 100 mg Admin: 11/01/16 09:02 Dose: 100 mg Admin: 10/31/16 20:36 Dose: 100 mg Admin: 10/31/16 08:19 Dose: 100 mg Admin: 10/30/16 20:59 Dose: 100 mg Miscellaneous Information (Remove Patch) 1 ea TRDERM DAILY [facility] Last Admin: 11/03/16 09:12 Dose: 1 ea Admin: 11/02/16 10:37 Dose: Admin: 11/01/16 09:06 Dose: Nicotine (Habitrol) 14 mg TRDERM DAILY [facility] Last Admin: 11/03/16 09:01 Dose: 14 mg Admin: 11/02/16 10:33 Dose: 14 mg Admin: 11/01/16 09:04 Dose: Not Given Admin: 10/31/16 20:37 Dose: Not Given Ondansetron HCl (Zofran) 4 mg IVPUSH Q4H PRN PRN Reason: Nausea Last Admin: 11/01/16 09:06 Dose: 4 mg Oxycodone/Acetaminophen (Percocet 325-5 Mg) 2 tab PO Q4H PRN PRN Reason: Pain Last Admin: 11/04/16 05:46 Dose: 2 tab Admin: 11/03/16 21:24 Dose: 2 tab Pantoprazole Sodium (Protonix Iv) 20 mg IVPUSH Q12H [facility] Chlorthalidone 25 Mg 0 each PO DAILY [facility] Last Admin: 11/03/16 08:39 Dose: 25 each Admin: 11/02/16 10:36 Dose: 25 each Admin: 11/01/16 09:05 Dose: 25 each Admin: 10/31/16 11:44 Dose: Potassium Chloride (Klor-Con M20) 20 meq PO TID [facility] Sodium Chloride (Saline Flush) 10 ml FLUSH ASDIRECTED PRN PRN Reason: Keep Vein Open Tiotropium Chandler (Spiriva Handihaler) 18 mcg INH DAILY [facility] Last Admin: 11/03/16 09:06 Dose: 1 puff Admin: 11/02/16 09:01 Dose: 1 puff Admin: 11/01/16 08:54 Dose: 1 puff Admin: 10/31/16 08:51 Dose: 1 puff - Assessment Assessment (Free Text/Narrative):: Doing well. - Plan Plan (Free Text/Narrative):: Plan discharge tomorrow.
[2016-11-04] MEDS: Metoprolol Tartrate 100 MG Tab PO SCH ×2 (08:45→21:53)
[2016-11-04] MEDS: Albuterol 6.7 GM Inhaler INH SCH ×2 (08:49→21:00)
[2016-11-04] MEDS: Tiotropium Inhaler 18 MCG Inhalation Powder Cap Kit of 5 INH SCH (08:50)
[2016-11-04] MEDS: Fluticasone Propionate 44 MCG/Puff 10.6 GM Inhaler INH SCH ×2 (08:50→21:00)
[2016-11-04] MEDS: Pantoprazole 40 MG Vial IVPUSH SCH ×3 (09:16→19:59)
[2016-11-04] MEDS: Potassium Chloride 20 MEQ Tab.ER PO SCH ×4 (09:17→21:53)
[2016-11-04] MEDS: Insulin Aspart 100 Units/ML 3 ML Pen SUBCUT SCH ×2 (09:17→17:11)
[2016-11-04] MEDS: Nicotine 14 MG/24 Hr Patch TRDERM SCH (09:18)
[2016-11-04] MEDS: Apixaban 5 MG Tab PO SCH ×2 (09:19→21:52)
[2016-11-04] MEDS: Lisinopril 20 MG Tab PO SCH (09:19)
[2016-11-04] MEDS: Diltiazem 180 MG Cap.CD PO SCH (09:19)
[2016-11-05] MEDS: cefOXitin 2 GM in Premix Bag 1 BAG IV SCH ×2 (01:29→06:29)
[2016-11-05] MEDS: Pantoprazole 40 MG Vial IVPUSH SCH (06:29)
[2016-11-05] MEDS: Acetaminophen/oxyCODONE 325-5 MG Tab PO PRN (06:29)
--- NOTE | 2016-11-05 07:41 | PCM.SURGPN ---
- General Info Date of Service: 11/05/16 Functional Status: Reports: Pain Controlled, Tolerating Diet, Ambulating, Urinating - Review of Systems Pulmonary: Reports: No Symptoms Cardiovascular: Reports: No Symptoms Gastrointestinal: Reports: No Symptoms - Patient Data Vitals - Most Recent: Last Vital Signs Temp 36.7 C 11/04/16 21:52 Pulse 64 11/04/16 21:53 Resp 18 11/04/16 21:52 BP 137/70 11/04/16 21:53 Pulse Ox 95 11/04/16 21:52 Weight - Most Recent: 110.932 kg I&O - Last 24 Hours: Intake & Output 11/04/16 11/05/16 11/05/16 22:59 06:59 14:59 Intake Total 1110 700 Balance 1110 700 Lab Results Last 24 Hrs: Laboratory Results - last 24 hr 11/04/16 11/05/16 Range/Units 16:49 06:23 POC Glucose 181 H 198 H (70-105) mg/dL Med Orders - Current: Current Medications Al Hydroxide/Mg Hydroxide (Mag-Al Plus) 30 ml PO Q4H PRN PRN Reason: Heartburn Last Admin: 11/04/16 05:46 Dose: 30 ml Albuterol (Proventil Hfa) 0 gm INH Q4H PRN PRN Reason: Shortness of Breath Albuterol (Proventil Hfa) 0 gm INH BID [facility] Last Admin: 11/04/16 21:00 Dose: 1 puff Apixaban (Eliquis) 5 mg PO BID [facility] Last Admin: 11/04/16 21:52 Dose: 5 mg Diltiazem HCl (Cardizem Cd) 180 mg PO DAILY [facility] Last Admin: 11/04/16 09:19 Dose: 180 mg Enalaprilat (Vasotec Iv) 0.625 mg IVPUSH Q6H PRN PRN Reason: Hypertension Fluticasone Propionate (Flovent Hfa 44 Mcg) 0 gm INH BID [facility] Last Admin: 11/04/16 21:00 Dose: 1 puff Furosemide (Lasix) 20 mg PO DAILY PRN PRN Reason: Edema Hydromorphone HCl (Dilaudid) 1 mg IVPUSH Q1H PRN PRN Reason: Pain (severe 7-10) Last Admin: 11/03/16 18:51 Dose: 1 mg Cefoxitin Sodium 2 gm/ Premix 50 mls @ 100 mls/hr IV Q6H [facility] Last Admin: 11/05/16 06:29 Dose: 100 mls/hr Insulin Aspart (Novolog) 0 unit SUBCUT BIDAC [facility] PRN Reason: Protocol Last Admin: 11/04/16 17:11 Dose: 1 unit Lisinopril (Prinivil) 40 mg PO DAILY [facility] Last Admin: 11/04/16 09:19 Dose: 40 mg Metoclopramide HCl (Reglan) 5 mg IVPUSH Q6H PRN PRN Reason: Nausea Last Admin: 11/01/16 12:54 Dose: 5 mg Metoprolol Tartrate (Lopressor) 100 mg PO BID [facility] Last Admin: 11/04/16 21:53 Dose: 100 mg Miscellaneous Information (Remove Patch) 1 ea TRDERM DAILY [facility] Last Admin: 11/04/16 09:20 Dose: 1 ea Nicotine (Habitrol) 14 mg TRDERM DAILY [facility] Last Admin: 11/04/16 09:18 Dose: 14 mg Ondansetron HCl (Zofran) 4 mg IVPUSH Q4H PRN PRN Reason: Nausea Last Admin: 11/01/16 09:06 Dose: 4 mg Oxycodone/Acetaminophen (Percocet 325-5 Mg) 2 tab PO Q4H PRN PRN Reason: Pain Last Admin: 11/05/16 06:29 Dose: 2 tab Pantoprazole Sodium (Protonix Iv) 20 mg IVPUSH Q12H [facility] Last Admin: 11/05/16 06:29 Dose: 20 mg Chlorthalidone 25 Mg 0 each PO DAILY [facility] Last Admin: 11/04/16 09:20 Dose: 1 each Potassium Chloride (Klor-Con M20) 20 meq PO TID [facility] Last Admin: 11/04/16 21:53 Dose: 20 meq Sodium Chloride (Saline Flush) 10 ml FLUSH ASDIRECTED PRN PRN Reason: Keep Vein Open Tiotropium [place] (Spiriva Handihaler) 18 mcg INH DAILY [facility] Last Admin: 11/04/16 08:50 Dose: 1 puff Discontinued Medications Albuterol (Proventil Neb Soln) 1.25 mg NEB ONETIME ONE Stop: 10/30/16 07:40 Last Admin: 10/30/16 07:59 Dose: 1.25 mg Bisacodyl (Dulcolax) 10 mg RECTAL ONETIME ONE Stop: 11/02/16 09:05 Last Admin: 11/02/16 10:32 Dose: 10 mg Bupivacaine HCl/Epinephrine Bitart (Marcaine 0.5%/Epinephrine 1:200,000) Confirm Administered Dose 50 ml .ROUTE .STK-MED ONE Stop: 10/30/16 07:26 Ephedrine Sulfate (Ephedrine Sulfate) Confirm Administered Dose 50 mg .ROUTE .STK-MED ONE Stop: 10/30/16 09:54 Fentanyl (Sublimaze) Confirm Administered Dose 250 mcg .ROUTE .STK-MED ONE Stop: 10/30/16 07:53 Fentanyl (Sublimaze) 50 mcg IVPUSH Q5M PRN PRN Reason: pain Stop: 10/30/16 18:00 Glycopyrrolate (Robinul) Confirm Administered Dose 0.6 mg .ROUTE .STK-MED ONE Stop: 10/30/16 09:54 Hydromorphone HCl (Dilaudid) Confirm Administered Dose 1 mg .ROUTE .STK-MED ONE Stop: 10/30/16 09:43 Hydromorphone HCl (Dilaudid) 0.5 mg IVPUSH Q15M PRN PRN Reason: Pain (severe 7-10) Stop: 10/30/16 10:46 Lactated Ringer's (Ringers, Lactated) 1,000 mls @ 125 mls[facility] Last Admin: 10/30/16 07:25 Dose: 125 mls/hr Cefoxitin Sodium 2 gm/ Premix 50 mls @ 100 mls/hr IV ONETIME ONE Stop: 10/30/16 09:14 Last Admin: 10/30/16 13:02 Dose: Not Given Lactated Ringer's (Ringers, Lactated) 1,000 mls @ 40 mls[facility] Last Admin: 10/31/16 12:31 Dose: 125 mls/hr Lactated Ringer's (Ringers, Lactated) 1,000 mls @ 40 mls/hr [facility] Stop: 11/04/16 08:10 Last Admin: 11/03/16 21:24 Dose: 40 mls/hr Potassium Chloride 10 meq/ (Premix) 100 mls @ 100 mls/hr IV Q1H [facility] Stop: 11/01/16 13:59 Last Admin: 11/01/16 15:01 Dose: 100 mls/hr Potassium Chloride 10 meq/ (Premix) 100 mls @ 100 mls/hr IV Q1H [facility] Stop: 11/01/16 21:59 Last Admin: 11/01/16 22:07 Dose: 100 mls/hr Potassium Chloride 10 meq/ (Premix) 100 mls @ 100 mls/hr IV Q1H [facility] Stop: 11/02/16 05:59 Last Admin: 11/02/16 06:03 Dose: 100 mls/hr Potassium Chloride 10 meq/ (Premix) 100 mls @ 100 mls/hr IV Q1H [facility] Stop: 11/02/16 16:59 Last Admin: 11/02/16 16:54 Dose: 100 mls/hr Potassium Chloride 10 meq/ (Premix) 100 mls @ 100 mls/hr IV Q1H [facility] Stop: 11/03/16 00:59 Last Admin: 11/02/16 23:30 Dose: 100 mls/hr Potassium Chloride 10 meq/ (Premix) 100 mls @ 100 mls/hr IV Q1H [facility] Stop: 11/03/16 08:59 Last Admin: 11/03/16 08:54 Dose: 100 mls/hr Magnesium Sulfate 2 gm/ Premix 50 mls @ 25 mls/hr IV ONETIME ONE Stop: 11/02/16 16:58 Last Admin: 11/02/16 15:57 Dose: 25 mls/hr Magnesium Sulfate 2 gm/ Premix 50 mls @ 25 mls/hr IV ONETIME ONE Stop: 11/04/16 09:27 Last Admin: 11/04/16 09:23 Dose: 25 mls/hr Lidocaine/Epinephrine (Xylocaine 1% With Epinephrine 1:100,000) Confirm Administered Dose 20 ml .ROUTE .STK-MED ONE Stop: 10/30/16 07:26 Lidocaine/Sodium Bicarbonate (Buffered Lidocaine 1% In Ns 8.4%) 0.25 ml IV ONETIME PRN PRN Reason: Prior to IV Start Stop: 10/30/16 16:00 Last Admin: 10/30/16 07:24 Dose: 0.25 ml Midazolam HCl (Versed 1 Mg/Ml) Confirm Administered Dose 2 mg .ROUTE .STK-MED ONE Stop: 10/30/16 07:53 Neostigmine Methylsulfate (Neostigmine Methylsulfate) Confirm Administered Dose 10 mg .ROUTE .STK-MED ONE Stop: 10/30/16 09:54 Ondansetron HCl (Zofran) Confirm Administered Dose 4 mg .ROUTE .STK-MED ONE Stop: 10/30/16 07:53 Ondansetron HCl (Zofran) 4 mg IVPUSH ONETIME PRN PRN Reason: Nausea/Vomiting Stop: 10/30/16 18:00 Pantoprazole Sodium (Protonix Iv) 20 mg IVPUSH DAILY [facility] Last Admin: 11/03/16 08:38 Dose: 20 mg Phenylephrine HCl (Joe-Synephrine) Confirm Administered Dose 10 mg .ROUTE .STK- MED ONE Stop: 10/30/16 09:54 Propofol (Diprivan 20 Ml) Confirm Administered Dose 200 mg .ROUTE .STK-MED ONE Stop: 10/30/16 07:53 Rocuronium [place] (Zemuron) Confirm Administered Dose 50 mg .ROUTE .STK-MED ONE Stop: 10/30/16 07:53 Rocuronium [place] (Zemuron) Confirm Administered Dose 50 mg .ROUTE .STK-MED ONE Stop: 10/30/16 09:43 Sodium Chloride (Saline Flush) 10 ml FLUSH ASDIRECTED PRN PRN Reason: Keep Vein Open Stop: 10/30/16 23:00 - Exam Wound/Incisions: Healing Well GI/Abdominal Exam: Soft, Non-Tender - Problem List & Annotations (1) Polyp of cecum SNOMED Code(s): 84207618 Code(s): D12.0 - BENIGN NEOPLASM OF CECUM Status: Resolved Priority: High Current Visit: No - Problem List Review Problem List Initiated/Reviewed/Updated: Yes - My Orders Last 24 Hours: Active Orders 24 hr Category Date Time Status Ready for Discharge [RC] PER UNIT ROUTINE Care 11/05/16 07:40 Ordered Regular Diet [DIET] Diet 11/04/16 Lunch Active BMP [BASIC METABOLIC PANEL,BMP] [CHEM] Routine Lab 11/05/16 07:39 Ordered CBC WITH AUTO DIFF [HEME] Routine Lab 11/05/16 07:38 Ordered MAGNESIUM [CHEM] Routine Lab 11/05/16 07:39 Ordered Pantoprazole [ProTONIX IV] Med 11/04/16 07:30 Active 20 mg IVPUSH Q12H Potassium Chloride [Klor-Con M20] Med 11/04/16 07:30 Active 20 meq PO TID Sodium Chloride 0.9% [Saline Flush] Med 11/04/16 07:28 Active 10 ml FLUSH ASDIRECTED PRN Assess Discharge Needs [OM.PC] Routine Oth 11/04/16 07:30 Ordered Convert IV to Peripheral Lock [Convert IV to Saline Oth 11/04/16 07:28 Ordered Lock] [OM.PC] Routine Medication Orders Al Hydroxide/Mg Hydroxide (Mag-Al Plus) 30 ml PO Q4H PRN PRN Reason: Heartburn Last Admin: 11/04/16 05:46 Dose: 30 ml Admin: 11/01/16 11:39 Dose: 30 ml Albuterol (Proventil Hfa) 0 gm INH Q4H PRN PRN Reason: Shortness of Breath Albuterol (Proventil Hfa) 0 gm INH BID [facility] Last Admin: 11/04/16 21:00 Dose: 1 puff Admin: 11/04/16 08:49 Dose: 1 puff Admin: 11/03/16 20:04 Dose: 1 puff Admin: 11/03/16 09:06 Dose: 1 puff Admin: 11/02/16 20:57 Dose: 1 puff Admin: 11/02/16 09:00 Dose: 1 puff Admin: 11/01/16 20:39 Dose: 1 puff Admin: 11/01/16 08:53 Dose: 1 puff Admin: 10/31/16 20:30 Dose: 1 puff Admin: 10/31/16 08:51 Dose: 1 puff Admin: 10/30/16 21:25 Dose: 1 puff Apixaban (Eliquis) 5 mg PO BID [facility] Last Admin: 11/04/16 21:52 Dose: 5 mg Admin: 11/04/16 09:19 Dose: 5 mg Admin: 11/03/16 21:24 Dose: 5 mg Admin: 11/03/16 08:36 Dose: 5 mg Admin: 11/02/16 21:05 Dose: 5 mg Admin: 11/02/16 10:04 Dose: 5 mg Admin: 11/01/16 20:58 Dose: 5 mg Admin: 11/01/16 10:30 Dose: 5 mg Diltiazem HCl (Cardizem Cd) 180 mg PO DAILY [facility] Last Admin: 11/04/16 09:19 Dose: 180 mg Admin: 11/03/16 08:36 Dose: 180 mg Admin: 11/02/16 10:07 Dose: 180 mg Admin: 11/01/16 09:02 Dose: 180 mg Admin: 10/31/16 08:29 Dose: 180 mg Enalaprilat (Vasotec Iv) 0.625 mg IVPUSH Q6H PRN PRN Reason: Hypertension Fluticasone Propionate (Flovent Hfa 44 Mcg) 0 gm INH BID [facility] Last Admin: 11/04/16 21:00 Dose: 1 puff Admin: 11/04/16 08:50 Dose: 1 puff Admin: 11/03/16 20:04 Dose: 1 puff Admin: 11/03/16 09:06 Dose: 1 puff Admin: 11/02/16 20:57 Dose: 1 puff Admin: 11/02/16 09:01 Dose: 1 puff Admin: 11/01/16 20:39 Dose: 1 puff Admin: 11/01/16 08:54 Dose: 1 puff Admin: 10/31/16 20:30 Dose: 1 puff Admin: 10/31/16 08:52 Dose: 1 puff Admin: 10/30/16 21:25 Dose: 1 puff Furosemide (Lasix) 20 mg PO DAILY PRN PRN Reason: Edema Hydromorphone HCl (Dilaudid) 1 mg IVPUSH Q1H PRN PRN Reason: Pain (severe 7-10) Last Admin: 11/03/16 18:51 Dose: 1 mg Admin: 11/03/16 10:39 Dose: 1 mg Admin: 11/03/16 04:10 Dose: 1 mg Admin: 11/02/16 15:54 Dose: 1 mg Admin: 11/02/16 10:34 Dose: 1 mg Admin: 11/02/16 04:30 Dose: 1 mg Admin: 11/01/16 22:08 Dose: 1 mg Admin: 11/01/16 18:06 Dose: 1 mg Admin: 11/01/16 11:41 Dose: 1 mg Admin: 10/31/16 20:45 Dose: 1 mg Admin: 10/31/16 09:20 Dose: 1 mg Admin: 10/31/16 04:29 Dose: 1 mg Admin: 10/30/16 21:30 Dose: 1 mg Admin: 10/30/16 16:55 Dose: 1 mg Cefoxitin Sodium 2 gm/ Premix 50 mls @ 100 mls/hr IV Q6H [facility] Last Admin: 11/05/16 06:29 Dose: 100 mls/hr Infusion: 11/05/16 01:59 Dose: 100 mls/hr Admin: 11/05/16 01:29 Dose: 100 mls/hr Infusion: 11/04/16 18:14 Dose: 100 mls/hr Admin: 11/04/16 17:44 Dose: 100 mls/hr Admin: 11/04/16 13:21 Dose: Infusion: 11/04/16 11:36 Dose: 100 mls/hr Admin: 11/04/16 11:06 Dose: 100 mls/hr Infusion: 11/04/16 06:17 Dose: 100 mls/hr Admin: 11/04/16 05:47 Dose: 100 mls/hr Infusion: 11/04/16 02:07 Dose: 100 mls/hr Admin: 11/04/16 01:37 Dose: 100 mls/hr Infusion: 11/03/16 18:46 Dose: 100 mls/hr Admin: 11/03/16 18:16 Dose: 100 mls/hr Infusion: 11/03/16 12:30 Dose: 100 mls/hr Admin: 11/03/16 12:00 Dose: 100 mls/hr Infusion: 11/03/16 06:46 Dose: 100 mls/hr Admin: 11/03/16 06:16 Dose: 100 mls/hr Infusion: 11/03/16 00:01 Dose: 100 mls/hr Admin: 11/02/16 23:31 Dose: 100 mls/hr Infusion: 11/02/16 18:38 Dose: 100 mls/hr Admin: 11/02/16 18:08 Dose: 100 mls/hr Infusion: 11/02/16 12:42 Dose: 100 mls/hr Admin: 11/02/16 12:12 Dose: 100 mls/hr Infusion: 11/02/16 06:36 Dose: 100 mls/hr Admin: 11/02/16 06:06 Dose: 100 mls/hr Infusion: 11/01/16 23:59 Dose: 100 mls/hr Admin: 11/01/16 23:29 Dose: 100 mls/hr Infusion: 11/01/16 18:21 Dose: 100 mls/hr Admin: 11/01/16 17:51 Dose: 100 mls/hr Infusion: 11/01/16 12:21 Dose: 100 mls/hr Admin: 11/01/16 11:51 Dose: 100 mls/hr Infusion: 11/01/16 07:19 Dose: 100 mls/hr Admin: 11/01/16 06:49 Dose: 100 mls/hr Infusion: 11/01/16 01:14 Dose: 100 mls/hr Admin: 11/01/16 00:44 Dose: 100 mls/hr Infusion: 10/31/16 18:56 Dose: 100 mls/hr Admin: 10/31/16 18:26 Dose: 100 mls/hr Infusion: 10/31/16 12:58 Dose: 100 mls/hr Admin: 10/31/16 12:28 Dose: 100 mls/hr Infusion: 10/31/16 07:19 Dose: 100 mls/hr Admin: 10/31/16 06:49 Dose: 100 mls/hr Infusion: 10/31/16 00:52 Dose: 100 mls/hr Admin: 10/31/16 00:22 Dose: 100 mls/hr Infusion: 10/30/16 18:55 Dose: 100 mls/hr Admin: 10/30/16 18:25 Dose: 100 mls/hr Infusion: 10/30/16 13:27 Dose: 100 mls/hr Admin: 10/30/16 12:57 Dose: 100 mls/hr Insulin Aspart (Novolog) 0 unit SUBCUT BIDAC [facility] PRN Reason: Protocol Last Admin: 11/04/16 17:11 Dose: 1 unit Admin: 11/04/16 09:17 Dose: 1 unit Admin: 11/03/16 16:37 Dose: 1 unit Admin: 11/03/16 06:16 Dose: Admin: 11/02/16 18:09 Dose: Not Given Admin: 11/02/16 07:03 Dose: 1 unit Admin: 11/01/16 17:46 Dose: 1 unit Admin: 11/01/16 06:57 Dose: 2 unit Admin: 10/31/16 16:56 Dose: 1 unit Admin: 10/31/16 12:20 Dose: 1 unit Lisinopril (Prinivil) 40 mg PO DAILY [facility] Last Admin: 11/04/16 09:19 Dose: 40 mg Admin: 11/03/16 08:36 Dose: 40 mg Admin: 11/02/16 10:04 Dose: 40 mg Admin: 11/01/16 09:03 Dose: 40 mg Admin: 10/31/16 08:29 Dose: 40 mg Metoclopramide HCl (Reglan) 5 mg IVPUSH Q6H PRN PRN Reason: Nausea Last Admin: 11/01/16 12:54 Dose: 5 mg Metoprolol Tartrate (Lopressor) 100 mg PO BID [facility] Last Admin: 11/04/16 21:53 Dose: 100 mg Admin: 11/04/16 08:45 Dose: 100 mg Admin: 11/03/16 21:25 Dose: 100 mg Admin: 11/03/16 08:37 Dose: 100 mg Admin: 11/02/16 21:05 Dose: 100 mg Admin: 11/02/16 10:06 Dose: 100 mg Admin: 11/01/16 20:57 Dose: 100 mg Admin: 11/01/16 09:02 Dose: 100 mg Admin: 10/31/16 20:36 Dose: 100 mg Admin: 10/31/16 08:19 Dose: 100 mg Admin: 10/30/16 20:59 Dose: 100 mg Miscellaneous Information (Remove Patch) 1 ea TRDERM DAILY [facility] Last Admin: 11/04/16 09:20 Dose: 1 ea Admin: 11/03/16 09:12 Dose: 1 ea Admin: 11/02/16 10:37 Dose: Admin: 11/01/16 09:06 Dose: Nicotine (Habitrol) 14 mg TRDERM DAILY [facility] Last Admin: 11/04/16 09:18 Dose: 14 mg Admin: 11/03/16 09:01 Dose: 14 mg Admin: 11/02/16 10:33 Dose: 14 mg Admin: 11/01/16 09:04 Dose: Not Given Admin: 10/31/16 20:37 Dose: Not Given Ondansetron HCl (Zofran) 4 mg IVPUSH Q4H PRN PRN Reason: Nausea Last Admin: 11/01/16 09:06 Dose: 4 mg Oxycodone/Acetaminophen (Percocet 325-5 Mg) 2 tab PO Q4H PRN PRN Reason: Pain Last Admin: 11/05/16 06:29 Dose: 2 tab Admin: 11/04/16 21:54 Dose: 2 tab Admin: 11/04/16 17:20 Dose: 2 tab Admin: 11/04/16 05:46 Dose: 2 tab Admin: 11/03/16 21:24 Dose: 2 tab Pantoprazole Sodium (Protonix Iv) 20 mg IVPUSH Q12H [facility] Last Admin: 11/05/16 06:29 Dose: 20 mg Admin: 11/04/16 19:59 Dose: Admin: 11/04/16 17:41 Dose: 20 mg Admin: 11/04/16 09:16 Dose: 20 mg Chlorthalidone 25 Mg 0 each PO DAILY [facility] Last Admin: 11/04/16 09:20 Dose: 1 each Admin: 11/03/16 08:39 Dose: 25 each Admin: 11/02/16 10:36 Dose: 25 each Admin: 11/01/16 09:05 Dose: 25 each Admin: 10/31/16 11:44 Dose: Potassium Chloride (Klor-Con M20) 20 meq PO TID [facility] Last Admin: 11/04/16 21:53 Dose: 20 meq Admin: 11/04/16 15:30 Dose: 20 meq Admin: 11/04/16 10:49 Dose: Not Given Admin: 11/04/16 09:17 Dose: 20 meq Sodium Chloride (Saline Flush) 10 ml FLUSH ASDIRECTED PRN PRN Reason: Keep Vein Open Tiotropium [place] (Spiriva Handihaler) 18 mcg INH DAILY [facility] Last Admin: 11/04/16 08:50 Dose: 1 puff Admin: 11/03/16 09:06 Dose: 1 puff Admin: 11/02/16 09:01 Dose: 1 puff Admin: 11/01/16 08:54 Dose: 1 puff Admin: 10/31/16 08:51 Dose: 1 puff - Assessment Assessment (Free Text/Narrative):: Ready for discharge - Plan Plan (Free Text/Narrative):: Discharge today.
--- NOTE | 2016-11-05 07:43 | PCM.DCSUM1 ---
Discharge Summary - Discharge Data Discharge Date: 11/05/16 Discharge Disposition: Home, Self-Care 01 Condition: Good - Discharge Diagnosis/Problem(s) (1) Polyp of cecum SNOMED Code(s): 48044948 ICD Code: D12.0 - BENIGN NEOPLASM OF CECUM Status: Resolved Priority: High Current Visit: No - Patient Summary/Data Operative Procedure(s) Performed: Open right hemicolectomy with [id number] stapled ileal to transverse colonic anastomosis Complications: None Labs Pending at D/C: CBC and BMP along with magnesium Hospital Course: The patient had an uncomplicated postoperative course. His bowel function returned after about 4 days. His diet was rapidly advanced after that. After satisfying all discharge criteria he was sent home in stable condition. - Patient Instructions Diet: Usual Diet as Tolerated Activity: As Tolerated Driving: May Drive Today Showering/Bathing: May Shower Wound/Incision Care: Keep Operative Site/Wound Site Clean and Dry Notify Provider of: Fever, Increased Pain, Swelling and Redness, Nausea and/or Vomiting - Discharge Plan Home Medications: Home Meds Albuterol [IJD: Ventolin HFA] 1 puff INH Q4HR PRN 01/14/16 [History] Albuterol/Ipratropium [Combivent Respimat] 1 puff INH BID 01/14/16 [History] Fluticasone Propionate [Flovent Hfa] 1 puff INH BID 01/14/16 [History] Lisinopril 40 mg PO DAILY 01/14/16 [History] Metoprolol Tartrate 100 tab PO BID 01/14/16 [History] Simvastatin 20 mg PO BEDTIME 01/14/16 [History] metFORMIN HCl [Metformin HCl] 1,000 mg PO BID 01/14/16 [History] Apixaban [Eliquis] 5 mg PO DAILY 10/29/16 [History] Aspirin 81 mg PO DAILY 10/29/16 [History] Diltiazem [Cardizem CD] 180 mg PO DAILY 10/29/16 [History] Insulin Aspart [NovoLOG] 1 dose SQ TID PRN 10/29/16 [History] Insulin Degludec [Tresiba Flextouch U-200] 120 mg SQ QAM 10/29/16 [History] Patient Handouts: Smoking Cessation, Tips for Success, [id number], Open Colectomy, Care After, Ileus, Open Colectomy Referrals: Ivone Ovalles NP [Primary Care Provider] - 11/10/16 (Medical follow-up after surgery) Jose G Sarabia MD [Physician] - 11/10/16 (Staple removal) - Discharge Summary/Plan Comment DC Time >30 min.: No Discharge Summary/Plan Comment: The discharge instructions were verbalized to the patient. He had no questions and was anxious to go home. He was in good spirits. I asked him to call me if there are any concerns between now and his follow-up clinic visit. - Patient Data Vitals - Most Recent: Last Vital Signs Temp 36.7 C 11/04/16 21:52 Pulse 64 11/04/16 21:53 Resp 18 11/04/16 21:52 BP 137/70 11/04/16 21:53 Pulse Ox 95 11/04/16 21:52 Weight - Most Recent: 110.932 kg I&O - Last 24 hours: Intake & Output 11/04/16 11/05/16 11/05/16 22:59 06:59 14:59 Intake Total 1110 700 Balance 1110 700 Lab Results - Last 24 hrs: Laboratory Results - last 24 hr 11/04/16 11/05/16 Range/Units 16:49 06:23 POC Glucose 181 H 198 H (70-105) mg/dL Med Orders - Current: Current Medications Al Hydroxide/Mg Hydroxide (Mag-Al Plus) 30 ml PO Q4H PRN PRN Reason: Heartburn Last Admin: 11/04/16 05:46 Dose: 30 ml Albuterol (Proventil Hfa) 0 gm INH Q4H PRN PRN Reason: Shortness of Breath Albuterol (Proventil Hfa) 0 gm INH BID [facility] Last Admin: 11/04/16 21:00 Dose: 1 puff Apixaban (Eliquis) 5 mg PO BID [facility] Last Admin: 11/04/16 21:52 Dose: 5 mg Diltiazem HCl (Cardizem Cd) 180 mg PO DAILY [facility] Last Admin: 11/04/16 09:19 Dose: 180 mg Enalaprilat (Vasotec Iv) 0.625 mg IVPUSH Q6H PRN PRN Reason: Hypertension Fluticasone Propionate (Flovent Hfa 44 Mcg) 0 gm INH BID [facility] Last Admin: 11/04/16 21:00 Dose: 1 puff Furosemide (Lasix) 20 mg PO DAILY PRN PRN Reason: Edema Hydromorphone HCl (Dilaudid) 1 mg IVPUSH Q1H PRN PRN Reason: Pain (severe 7-10) Last Admin: 11/03/16 18:51 Dose: 1 mg Cefoxitin Sodium 2 gm/ Premix 50 mls @ 100 mls/hr IV Q6H [facility] Last Admin: 11/05/16 06:29 Dose: 100 mls/hr Insulin Aspart (Novolog) 0 unit SUBCUT BIDAC [facility] PRN Reason: Protocol Last Admin: 11/04/16 17:11 Dose: 1 unit Lisinopril (Prinivil) 40 mg PO DAILY [facility] Last Admin: 11/04/16 09:19 Dose: 40 mg Metoclopramide HCl (Reglan) 5 mg IVPUSH Q6H PRN PRN Reason: Nausea Last Admin: 11/01/16 12:54 Dose: 5 mg Metoprolol Tartrate (Lopressor) 100 mg PO BID [facility] Last Admin: 11/04/16 21:53 Dose: 100 mg Miscellaneous Information (Remove Patch) 1 ea TRDERM DAILY [facility] Last Admin: 11/04/16 09:20 Dose: 1 ea Nicotine (Habitrol) 14 mg TRDERM DAILY [facility] Last Admin: 11/04/16 09:18 Dose: 14 mg Ondansetron HCl (Zofran) 4 mg IVPUSH Q4H PRN PRN Reason: Nausea Last Admin: 11/01/16 09:06 Dose: 4 mg Oxycodone/Acetaminophen (Percocet 325-5 Mg) 2 tab PO Q4H PRN PRN Reason: Pain Last Admin: 11/05/16 06:29 Dose: 2 tab Pantoprazole Sodium (Protonix Iv) 20 mg IVPUSH Q12H [facility] Last Admin: 11/05/16 06:29 Dose: 20 mg Chlorthalidone 25 Mg 0 each PO DAILY [facility] Last Admin: 11/04/16 09:20 Dose: 1 each Potassium Chloride (Klor-Con M20) 20 meq PO TID [facility] Last Admin: 11/04/16 21:53 Dose: 20 meq Sodium Chloride (Saline Flush) 10 ml FLUSH ASDIRECTED PRN PRN Reason: Keep Vein Open Tiotropium [place] (Spiriva Handihaler) 18 mcg INH DAILY [facility] Last Admin: 11/04/16 08:50 Dose: 1 puff Discontinued Medications Albuterol (Proventil Neb Soln) 1.25 mg NEB ONETIME ONE Stop: 10/30/16 07:40 Last Admin: 10/30/16 07:59 Dose: 1.25 mg Bisacodyl (Dulcolax) 10 mg RECTAL ONETIME ONE Stop: 11/02/16 09:05 Last Admin: 11/02/16 10:32 Dose: 10 mg Bupivacaine HCl/Epinephrine Bitart (Marcaine 0.5%/Epinephrine 1:200,000) Confirm Administered Dose 50 ml .ROUTE .STK-MED ONE Stop: 10/30/16 07:26 Ephedrine Sulfate (Ephedrine Sulfate) Confirm Administered Dose 50 mg .ROUTE .STK-MED ONE Stop: 10/30/16 09:54 Fentanyl (Sublimaze) Confirm Administered Dose 250 mcg .ROUTE .STK-MED ONE Stop: 10/30/16 07:53 Fentanyl (Sublimaze) 50 mcg IVPUSH Q5M PRN PRN Reason: pain Stop: 10/30/16 18:00 Glycopyrrolate (Robinul) Confirm Administered Dose 0.6 mg .ROUTE .STK-MED ONE Stop: 10/30/16 09:54 Hydromorphone HCl (Dilaudid) Confirm Administered Dose 1 mg .ROUTE .STK-MED ONE Stop: 10/30/16 09:43 Hydromorphone HCl (Dilaudid) 0.5 mg IVPUSH Q15M PRN PRN Reason: Pain (severe 7-10) Stop: 10/30/16 10:46 Lactated Ringer's (Ringers, Lactated) 1,000 mls @ 125 mls/hr IV ASDIRECTED [facility] Last Admin: 10/30/16 07:25 Dose: 125 mls/hr Cefoxitin Sodium 2 gm/ Premix 50 mls @ 100 mls/hr IV ONETIME ONE Stop: 10/30/16 09:14 Last Admin: 10/30/16 13:02 Dose: Not Given Lactated Ringer's (Ringers, Lactated) 1,000 mls @ 40 mls/hr IV ASDIRECTED [facility] Last Admin: 10/31/16 12:31 Dose: 125 mls/hr Lactated Ringer's (Ringers, Lactated) 1,000 mls @ 40 mls/hr IV ASDIRECTED [facility] Stop: 11/04/16 08:10 Last Admin: 11/03/16 21:24 Dose: 40 mls/hr Potassium Chloride 10 meq/ (Premix) 100 mls @ 100 mls/hr IV Q1H [facility] Stop: 11/01/16 13:59 Last Admin: 11/01/16 15:01 Dose: 100 mls/hr Potassium Chloride 10 meq/ (Premix) 100 mls @ 100 mls/hr IV Q1H [facility] Stop: 11/01/16 21:59 Last Admin: 11/01/16 22:07 Dose: 100 mls/hr Potassium Chloride 10 meq/ (Premix) 100 mls @ 100 mls/hr IV Q1H [facility] Stop: 11/02/16 05:59 Last Admin: 11/02/16 06:03 Dose: 100 mls/hr Potassium Chloride 10 meq/ (Premix) 100 mls @ 100 mls/hr IV Q1H [facility] Stop: 11/02/16 16:59 Last Admin: 11/02/16 16:54 Dose: 100 mls/hr Potassium Chloride 10 meq/ (Premix) 100 mls @ 100 mls/hr IV Q1H [facility] Stop: 11/03/16 00:59 Last Admin: 11/02/16 23:30 Dose: 100 mls/hr Potassium Chloride 10 meq/ (Premix) 100 mls @ 100 mls/hr IV Q1H [facility] Stop: 11/03/16 08:59 Last Admin: 11/03/16 08:54 Dose: 100 mls/hr Magnesium Sulfate 2 gm/ Premix 50 mls @ 25 mls/hr IV ONETIME ONE Stop: 11/02/16 16:58 Last Admin: 11/02/16 15:57 Dose: 25 mls/hr Magnesium Sulfate 2 gm/ Premix 50 mls @ 25 mls/hr IV ONETIME ONE Stop: 11/04/16 09:27 Last Admin: 11/04/16 09:23 Dose: 25 mls/hr Lidocaine/Epinephrine (Xylocaine 1% With Epinephrine 1:100,000) Confirm Administered Dose 20 ml .ROUTE .STK-MED ONE Stop: 10/30/16 07:26 Lidocaine/Sodium Bicarbonate (Buffered Lidocaine 1% In Ns 8.4%) 0.25 ml IV ONETIME PRN PRN Reason: Prior to IV Start Stop: 10/30/16 16:00 Last Admin: 10/30/16 07:24 Dose: 0.25 ml Midazolam HCl (Versed 1 Mg/Ml) Confirm Administered Dose 2 mg .ROUTE .STK-MED ONE Stop: 10/30/16 07:53 Neostigmine Methylsulfate (Neostigmine Methylsulfate) Confirm Administered Dose 10 mg .ROUTE .STK-MED ONE Stop: 10/30/16 09:54 Ondansetron HCl (Zofran) Confirm Administered Dose 4 mg .ROUTE .STK-MED ONE Stop: 10/30/16 07:53 Ondansetron HCl (Zofran) 4 mg IVPUSH ONETIME PRN PRN Reason: Nausea/Vomiting Stop: 10/30/16 18:00 Pantoprazole Sodium (Protonix Iv) 20 mg IVPUSH DAILY [facility] Last Admin: 11/03/16 08:38 Dose: 20 mg Phenylephrine HCl (Joe-Synephrine) Confirm Administered Dose 10 mg .ROUTE .STK- MED ONE Stop: 10/30/16 09:54 Propofol (Diprivan 20 Ml) Confirm Administered Dose 200 mg .ROUTE .STK-MED ONE Stop: 10/30/16 07:53 Rocuronium [place] (Zemuron) Confirm Administered Dose 50 mg .ROUTE .STK-MED ONE Stop: 10/30/16 07:53 Rocuronium [place] (Zemuron) Confirm Administered Dose 50 mg .ROUTE .STK-MED ONE Stop: 10/30/16 09:43 Sodium Chloride (Saline Flush) 10 ml FLUSH ASDIRECTED PRN PRN Reason: Keep Vein Open Stop: 10/30/16 23:00 *Q Meaningful Use (DIS) - VTE *Q VTE Criteria *Q: - Stroke *Q Stroke Criteria *Q: - AMI *Q AMI Criteria *Q:
[2016-11-05] MEDS: Albuterol 6.7 GM Inhaler INH SCH (08:08)
[2016-11-05] MEDS: Fluticasone Propionate 44 MCG/Puff 10.6 GM Inhaler INH SCH (08:09)
[2016-11-05] MEDS: Tiotropium Inhaler 18 MCG Inhalation Powder Cap Kit of 5 INH SCH (08:10)
[2016-11-05 08:16] VITALS: BP 175/79
[2016-11-05] MEDS: Diltiazem 180 MG Cap.CD PO SCH (08:17)
[2016-11-05] MEDS: Lisinopril 20 MG Tab PO SCH (08:17)
[2016-11-05] MEDS: Apixaban 5 MG Tab PO SCH (08:17)
[2016-11-05] MEDS: Metoprolol Tartrate 100 MG Tab PO SCH (08:17)
[2016-11-05] MEDS: Nicotine 14 MG/24 Hr Patch TRDERM SCH (08:18)
[2016-11-05] MEDS: Potassium Chloride 20 MEQ Tab.ER PO SCH (08:19)
[2016-11-05] MEDS: Insulin Aspart 100 Units/ML 3 ML Pen SUBCUT SCH (08:25)
== END 2016-11-05 08:38 | disposition home or self-care (01) | DRG 221 ==
LOC: JD.MS 06:45
PROVIDERS: ADMIT Surgery; ATTEND Surgery
PROC: 0DTF0ZZ Resection of Right Large Intestine, Open Approach (ICD-10-PCS; principal; 2016-10-30)
DX: K63.5 Polyp of colon (principal); K56.7 Ileus, unspecified; E11.9 Type 2 diabetes mellitus without complications; Z79.84 Long term (current) use of oral hypoglycemic drugs; I10 Essential (primary) hypertension; E78.5 Hyperlipidemia, unspecified; Z88.8 Allergy status to other drugs, medicaments and biological substances; G47.30 Sleep apnea, unspecified; F17.200 Nicotine dependence, unspecified, uncomplicated; J44.9 Chronic obstructive pulmonary disease, unspecified; I48.91 Unspecified atrial fibrillation; M19.90 Unspecified osteoarthritis, unspecified site; C34.91 Malignant neoplasm of unspecified part of right bronchus or lung; Z79.82 Long term (current) use of aspirin; Z79.01 Long term (current) use of anticoagulants; Z79.4 Long term (current) use of insulin; Z79.899 Other long term (current) drug therapy
CPT/HCPCS: 00840; 36415; 80048; 82962; 83735; 85025; 93005; 94640; 94664; 94760; 94761; A9270; A9270-GY; C9113; J0694; J1170; J1815-GY; J2250; J2370; J2405; J2704; J2710; J2765; J3010; J3475; J3480; J3490; J7120

== ENCOUNTER 2016-12-16 07:42 | Day surgery (SDC) | payer BC ==
[~2016-12-16 07:42] MED LIST changes: -Lidocaine 1%/Sod Bicarbonate in NS 8.4% 1 ML Syringe IV PRN; +Lidocaine 1%/Sod Bicarbonate in NS 8.4% 1 ML Syringe PRN
[2016-12-16] MEDS ORDERED: Albuterol 0.083% 2.5 MG/3 ML Neb Soln NEB ONE (08:00)
[2016-12-16] MEDS ORDERED: Lidocaine 1% with EPINEPHrine 1:100,000 20 ML MDV ONE (08:43)
[2016-12-16] MEDS ORDERED: Bupivacaine 0.5%/EPINEPHrine 1:200,000 50 ML MDV ONE (08:44)
[2016-12-16] MEDS ORDERED: Sodium Chloride 0.9% 50 ML SDV ONE ×2 (08:44→09:22)
[2016-12-16] MEDS ORDERED: Heparin Sodium 5,000 Units/ML Vial ONE (09:03)
--- NOTE | 2016-12-16 09:17 | PCM.PREANE ---
Preanesthetic Assessment - Anesthesia/Transfusion/Family Hx Anesthesia History: Prior Anesthesia Without Reaction Family History of Anesthesia Reaction: No Transfusion History: No Prior Transfusion(s) - Review of Systems General: No Symptoms Pulmonary: No Symptoms Cardiovascular: No Symptoms Gastrointestinal: No Symptoms Neurological: No Symptoms Other: Reports: None - Physical Assessment NPO Status Date: 12/15/16 NPO Status Time: 21:00 O2 Sat by Pulse Oximetry: 95 Respiratory Rate: 16 Vital Signs: Last Vital Signs Temp 36.6 C 12/16/16 08:00 Pulse 66 12/16/16 08:00 Resp 16 12/16/16 08:00 BP 150/82 H 12/16/16 08:00 Pulse Ox 98 12/16/16 08:48 Height: 1.7 m Weight: 112.491 kg ASA Class: 3 Mental Status: Alert & Oriented x3 Airway Class: Mallampati = 2 Dentition: Reports: Dentures (One remaining tooth) Thyro-Mental Finger Breadths: 3 Mouth Opening Finger Breadths: 3 ROM/Head Extension: Full Lungs: Clear to Auscultation, Normal Respiratory Effort Cardiovascular: Regular Rate, Regular Rhythm - Lab Values: Laboratory Last Values Urine Color Yellow (Yellow) 12/16/16 07:22 Urine Appearance Clear (Clear) 12/16/16 07:22 Urine pH 5.5 (5.0-8.0) 12/16/16 07:22 Ur Specific [place] > or = 1.030 (1.005-1.030) 12/16/16 07:22 Urine Protein 3+ (Negative) H 12/16/16 07:22 Urine Glucose (UA) Negative (Negative) 12/16/16 07:22 Urine Ketones Negative (Negative) 12/16/16 07:22 Urine Occult Blood 2+ (Negative) H 12/16/16 07:22 Urine Nitrite Negative (Negative) 12/16/16 07:22 Urine Bilirubin Negative (Negative) 12/16/16 07:22 Urine Urobilinogen 0.2 (0.2-1.0) 12/16/16 07:22 Ur Leukocyte Esterase Negative (Negative) 12/16/16 07:22 Urine RBC 5-10 /hpf (0-5) H 12/16/16 07:22 Urine WBC 0-5 /hpf (0-5) 12/16/16 07:22 Ur Epithelial Cells Not seen /hpf (0-5) 12/16/16 07:22 Urine Bacteria Few /hpf (FEW) 12/16/16 07:22 Urine Mucus Few /hpf (FEW) 12/16/16 07:22 Reviewed: Dr. Sarabia aware of UA results, proceed with procedure as planned. - Allergies Allergies/Adverse Reactions: Allergies Allergy/AdvReac Type Severity Reaction Status Date / Time niacin Allergy Hives Verified 12/15/16 13:49 - Anesthesia Plan Pre-Op Medication Ordered: Other (Neb albuterol ordered) Beta Hector: Metoprolol Med Last Dose Date: 12/16/16 Med Last Dose Time: 03:30 - Acknowledgements Anesthesia Type Planned: MAC Pt an Appropriate Candidate for the Planned Anesthesia: Yes Alternatives and Risks of Anesthesia Discussed w Pt/Guardian: Yes Pt/Guardian Understands and Agrees with Anesthesia Plan: Yes PreAnesthesia Questionnaire HEENT History: Reports: Impaired Vision, Otitis Media, Other (See Below) Other HEENT History: wears glasses Cardiovascular History: Reports: Afib, High Cholesterol, Hypertension, Other ( See Below) Other Cardiovascular History: post op afib, edema, venous insufficiency Respiratory History: Reports: COPD, Sleep Apnea, SOB, Other (See Below) Other Respiratory History: R lung mass and adenocarcinoma Gastrointestinal History: Reports: Colon Polyp Genitourinary History: Reports: Other (See Below) Other Genitourinary History: dysuria 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 Musculoskeletal History: Reports: Arthritis, Osteoarthritis Neurological History: Reports: None Psychiatric History: Reports: None Endocrine/Metabolic History: Reports: Diabetes, Type II, Obesity/BMI 30+ Hematologic History: Reports: None Immunologic History: Reports: None Oncologic (Cancer) History: Reports: None Dermatologic History: Reports: None - Past Surgical History Head Surgeries/Procedures: Reports: None HEENT Surgical History: Reports: Myringotomy w Tube(s), Tonsillectomy Respiratory Surgical History: Reports: Other (See Below) Other Respiratory Surgeries/Procedures: Right lower lobe lobectomy GI Surgical History: Reports: Colonoscopy, Other (See Below) Other GI Surgeries/Procedures: right hemicolectomy for colon cancer 10/2016 Female Surgical History: Reports: None Male Surgical History: Reports: None Neurological Surgical History: Reports: None Oncologic Surgical History: Reports: None Dermatological Surgical History: Reports: None - SUBSTANCE USE Smoking Status *Q: Current Every Day Smoker Tobacco Use Within Last Twelve Months: Cigarettes Second Hand Smoke Exposure: Yes Days Per Week of Alcohol Use: 3 Number of Drinks Per Day: 4 Total Drinks Per Week: 12 Recreational Drug Use History: No Recreational Drug Type: - HOME MEDS Home Medications: Home Meds Albuterol [IJD: Ventolin HFA] 1 puff INH Q4HR PRN 01/14/16 [History] Fluticasone Propionate [Flovent Hfa] 1 puff INH BID 01/14/16 [History] Lisinopril 40 mg PO BID 01/14/16 [History] Metoprolol Tartrate 100 tab PO BID 01/14/16 [History] Simvastatin 20 mg PO BEDTIME 01/14/16 [History] metFORMIN HCl [Metformin HCl] 1,000 mg PO BID 01/14/16 [History] Apixaban [Eliquis] 5 mg PO DAILY 10/29/16 [History] Aspirin 81 mg PO DAILY 10/29/16 [History] Diltiazem [Cardizem CD] 180 mg PO DAILY 10/29/16 [History] Insulin Aspart [NovoLOG] 1 dose SQ TID PRN 10/29/16 [History] Insulin Degludec [Tresiba Flextouch U-200] 120 mg SQ QAM 10/29/16 [History] Chlorthalidone [Chlorthalidone] 50 mg PO DAILY 12/15/16 [History] Tiotropium Br/Olodaterol HCl [Stiolto Respimat Inhal [place]] 2 puff INH DAILY [History] - CURRENT (IN HOUSE) MEDS Current Meds: Current Medications Lactated Ringer's (Ringers, Lactated) 1,000 mls @ 125 mls/hr IV ASDIRECTED [facility] Stop: 12/16/16 23:00 Last Admin: 12/16/16 08:20 Dose: 125 mls/hr Lidocaine/Sodium Bicarbonate (Buffered Lidocaine 1% In Ns 8.4%) 0.25 ml .XX ONETIME PRN PRN Reason: Prior to IV Start Stop: 12/16/16 18:00 Last Admin: 12/16/16 08:19 Dose: 0.25 ml Sodium Chloride (Saline Flush) 10 ml FLUSH ASDIRECTED PRN PRN Reason: Keep Vein Open Stop: 12/16/16 18:00 Discontinued Medications Albuterol (Proventil Neb Soln) 2.5 mg NEB ONETIME ONE Stop: 12/16/16 08:01 Last Admin: 12/16/16 08:46 Dose: 2.5 mg Bupivacaine HCl/Epinephrine Bitart (Marcaine 0.5%/Epinephrine 1:200,000) Confirm Administered Dose 50 ml .ROUTE .STK-MED ONE Stop: 12/16/16 08:45 Lidocaine/Epinephrine (Xylocaine 1% With Epinephrine 1:100,000) Confirm Administered Dose 20 ml .ROUTE .STK-MED ONE Stop: 12/16/16 08:44 Sodium Chloride (Normal Saline) Confirm Administered Dose 50 ml .ROUTE .STK-MED ONE Stop: 12/16/16 08:45
[2016-12-16] MEDS ORDERED: Propofol 200 MG/20 ML SDV ONE ×2 (09:41→10:32)
[2016-12-16] MEDS ORDERED: Ketamine 500 mg/10 ML MDV ONE (09:42)
[2016-12-16] MEDS ORDERED: Midazolam 1 MG/ML 2 ML SDV ONE (09:42)
[2016-12-16] MEDS ORDERED: fentaNYL 100 MCG/2 ML SDV ONE (09:42)
[2016-12-16] MEDS ORDERED: ceFAZolin 1 GM Vial ONE (09:50)
[2016-12-16] MEDS ORDERED: Lidocaine 1% 6 ML ONE (10:21)
[2016-12-16] MEDS ORDERED: Ondansetron 4 MG/2 ML SDV ONE (10:43)
--- NOTE | 2016-12-16 11:06 | PCM.OPNOTE ---
- General Post-Op/Procedure Note Date of Surgery/Procedure: 12/16/16 Operative Procedure(s): Fluoroscopic Left subclavian Port-A-Cath placement Findings: Normal anatomy Pre Op Diagnosis: Colon cancer scheduled for neoadjuvant chemotherapy Post-Op Diagnosis: Same Anesthesia Technique: Local, MAC, Moderate Sedation Primary Surgeon: Jose G Sarabia Pathology: None EBL in mLs: 3 Complications: None Condition: Good Free Text/Narrative:: After adequate IV sedation and analgesia was obtained with monitoring the patient's left and right chest were prepped and draped sterilely for the procedure. 10 mL of local analgesia was injected into the skin and just below the left clavicle. A needle was introduced into the subclavian vein on the third pass. A wire was introduced through this needle into the superior vena cava which was confirmed with fluoroscopy. I injected additional local 6 cm below the needle insertion site in preparation for the pocket. A 15 blade was used to make a 3 cm incision in the skin. A pocket was created with cautery for the [id number]. I then placed additional local between the pocket and the wire with local for the tunnel. I then tunneled the Port-A-Cath. A dilator was placed over the guidewire. The peel-away sheath was placed over the wire after proper confirmation with fluoroscopy. I removed the wire and dilator then inserted the catheter into the pull-away sheath. The tip of the catheter was placed just above the superior vena cava and right atrial junction. I secured the port after flushing it and confirmed it to be freely aspirated and injected to the subcutaneous fat with interrupted 2-0 silk. I closed the port site in 2 layers with 3-0 Vicryl and 4-0 Vicryl subcuticular. The subcutaneous entry site was closed with a 4-0 Vicryl. Steri-Strips and gauze along with an OpSite were used for the dressing. There were no complications.
--- NOTE | 2016-12-16 11:13 | PCM.POSTAN ---
POST ANESTHESIA ASSESSMENT - MENTAL STATUS Mental Status: Alert, Oriented - VITAL SIGNS Pulse Rate: 80 SaO2: 96 Resp Rate: 22 Blood Pressure: 149/70 Temperature: 98.4 C - RESPIRATORY Respiratory Status: Respiratory Rate WNL, Airway Patent, O2 Saturation Stable, Supplemental Oxygen - CARDIOVASCULAR CV Status: Pulse Rate WNL, Blood Pressure Stable - GASTROINTESTINAL GI Status: No Symptoms - PAIN Pain Score: 0 - POST OP HYDRATION Hydration Status: Adequate & Stable
--- NOTE | 2016-12-16 12:01 | CR ---
Chest: Multiple fluoroscopic spot views were obtained during placement of left sided infusion port. Fluoroscopic time was 37.0 seconds. Guidewire and catheter seen terminating within the superior vena cava. Impression: 1. Procedural study showing Port-A-Cath placement. Diagnostic code #2
--- NOTE | 2016-12-16 12:01 | CR ---
Chest: Portable view of the chest was obtained. Comparison: Previous chest CT of 03/13/16. Mild atelectasis is seen within the right lung base. Previous right lower lung nodule noted on CT not well seen on chest x-ray. Left-sided infusion port is seen. Tip of Port-A-Cath lies within the superior vena cava. Heart size and mediastinum are within normal limits. Bony structures are grossly intact. No pneumothorax is seen. Impression: 1. Mild right-sided atelectasis. 2. Satisfactory position of Port-A-Cath. 3. Previous right lower lung nodule seen on CT exam is poorly seen on chest x-ray. Diagnostic code #2
[2016-12-16 12:14] VITALS: BP 137/74
== END 2016-12-16 11:38 | disposition home or self-care (01) ==
LOC: JD.SDS 07:42
PROVIDERS: ATTEND Surgery
DX: C18.9 Malignant neoplasm of colon, unspecified (principal); M19.90 Unspecified osteoarthritis, unspecified site; I48.91 Unspecified atrial fibrillation; J44.9 Chronic obstructive pulmonary disease, unspecified; I10 Essential (primary) hypertension; E78.5 Hyperlipidemia, unspecified; E83.42 Hypomagnesemia; G47.30 Sleep apnea, unspecified; E11.9 Type 2 diabetes mellitus without complications; N39.0 Urinary tract infection, site not specified; F17.210 Nicotine dependence, cigarettes, uncomplicated; E66.9 Obesity, unspecified; Z85.118 Personal history of other malignant neoplasm of bronchus and lung; Z86.010 Personal history of colon polyps; Z88.8 Allergy status to other drugs, medicaments and biological substances; Z79.4 Long term (current) use of insulin; Z79.01 Long term (current) use of anticoagulants; Z79.82 Long term (current) use of aspirin; Z79.51 Long term (current) use of inhaled steroids; Z79.899 Other long term (current) drug therapy; Z98.890 Other specified postprocedural states; Z90.2 Acquired absence of lung [part of]; Z68.38 Body mass index [BMI] 38.0-38.9, adult
CPT/HCPCS: 36561; 71010; 77001; 81001; 94640; C1788; J0690; J1644; J2250; J2405; J3010; J7120; 00532; 76000; J2704

== ENCOUNTER 2018-05-25 08:51 | Day surgery (SDC) | payer BC ==
[~2018-05-25 08:51] MED LIST changes: +Lidocaine 1%/Sod Bicarbonate in NS 8.4% 1 ML Syringe IDERM PRN; -Lidocaine 1%/Sod Bicarbonate in NS 8.4% 1 ML Syringe PRN
--- NOTE | 2018-05-25 09:20 | PCM.PREANE ---
Preanesthetic Assessment - Procedure Proposed Procedure: screening colonoscopy - Anesthesia/Transfusion/Family Hx Anesthesia History: Prior Anesthesia Without Reaction Family History of Anesthesia Reaction: No Transfusion History: No Prior Transfusion(s) - Review of Systems General: No Symptoms Pulmonary: No Symptoms Cardiovascular: No Symptoms Gastrointestinal: No Symptoms Neurological: No Symptoms, Other (numbness in hands and fingers at times) Other: Reports: Diabetes, Sinus Problem - Physical Assessment NPO Status Date: 05/24/18 NPO Status Time: 23:55 Pulse: 64 O2 Sat by Pulse Oximetry: 98 Respiratory Rate: 16 Blood Pressure: 149/89 Temperature: 97.5 F Height: 5 ft 7 in Weight: 108.136 kg ASA Class: 3 Mental Status: Alert & Oriented x3 Airway Class: Mallampati = 1 Dentition: Reports: Dentures (top and bottom), Edentulous Thyro-Mental Finger Breadths: 3 Mouth Opening Finger Breadths: 3 ROM/Head Extension: Full Lungs: Normal Respiratory Effort, Wheezing Cardiovascular: Regular Rate, Regular Rhythm - Allergies Allergies/Adverse Reactions: Allergies Allergy/AdvReac Type Severity Reaction Status Date / Time niacin Allergy Hives Verified 05/25/18 09:23 - Blood Blood Available: No - Anesthesia Plan Beta Hector: Metoprolol Med Last Dose Date: 05/25/18 Med Last Dose Time: 06:00 - Acknowledgements Anesthesia Type Planned: MAC Pt an Appropriate Candidate for the Planned Anesthesia: Yes Alternatives and Risks of Anesthesia Discussed w Pt/Guardian: Yes Pt/Guardian Understands and Agrees with Anesthesia Plan: Yes PreAnesthesia Questionnaire HEENT History: Reports: Impaired Vision, Otitis Media, Other (See Below) Other HEENT History: wears glasses Cardiovascular History: Reports: Afib, High Cholesterol, Hypertension, Other ( See Below) Other Cardiovascular History: post op afib, edema, venous insufficiency Respiratory History: Reports: COPD, Sleep Apnea, SOB, Other (See Below) Other Respiratory History: R lung mass and adenocarcinoma Gastrointestinal History: Reports: Colon Polyp Genitourinary History: Reports: Other (See Below) Other Genitourinary History: dysuria 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 Musculoskeletal History: Reports: Arthritis, Osteoarthritis Neurological History: Reports: None Psychiatric History: Reports: None Endocrine/Metabolic History: Reports: Diabetes, Type II, Obesity/BMI 30+ Hematologic History: Reports: None Immunologic History: Reports: None Oncologic (Cancer) History: Reports: Colon, Lung Dermatologic History: Reports: None - Past Surgical History Head Surgeries/Procedures: Reports: None HEENT Surgical History: Reports: Adenoidectomy, Myringotomy w Tube(s), Tonsillectomy, Other (See Below) (skin grafts on eardrum) Respiratory Surgical History: Reports: Other (See Below) Other Respiratory Surgeries/Procedures: Right lower lobe lobectomy GI Surgical History: Reports: Colonoscopy, Other (See Below) Other GI Surgeries/Procedures: right hemicolectomy for colon cancer 10/2016 Female Surgical History: Reports: None Male Surgical History: Reports: None Neurological Surgical History: Reports: None Oncologic Surgical History: Reports: None Dermatological Surgical History: Reports: None - SUBSTANCE USE Smoking Status *Q: Current Every Day Smoker (44 years) Tobacco Use Within Last Twelve Months: Cigarettes Second Hand Smoke Exposure: Yes Days Per Week of Alcohol Use: 0 Recreational Drug Use History: Yes Recreational Drug Type: Reports: Other (see below) (monica obrien) - HOME MEDS Home Medications: Home Meds Albuterol [IJD: Ventolin HFA] 1 puff INH Q4HR PRN 01/14/16 [History] Fluticasone Propionate [Flovent Hfa] 1 puff INH BID 01/14/16 [History] Lisinopril 40 mg PO BID 01/14/16 [History] Metoprolol Tartrate 100 tab PO BID 01/14/16 [History] Simvastatin 20 mg PO BEDTIME 01/14/16 [History] metFORMIN HCl [Metformin HCl] 1,000 mg PO BID 01/14/16 [History] Aspirin 81 mg PO DAILY 10/29/16 [History] Diltiazem [Cardizem CD] 180 mg PO DAILY 10/29/16 [History] Insulin Aspart [NovoLOG] 1 dose SQ TID PRN 10/29/16 [History] Insulin Degludec [Tresiba Flextouch U-200] 120 mg SQ QAM 10/29/16 [History] Chlorthalidone 50 mg PO DAILY 12/15/16 [History] Tiotropium Br/Olodaterol HCl [Stiolto Respimat Inhal [place]] 2 puff INH DAILY [History] Rivaroxaban [Xarelto] 20 mg PO DAILY 05/25/18 [History] - CURRENT (IN HOUSE) MEDS Current Meds: Current Medications Lactated Ringer's (Ringers, Lactated) 1,000 mls @ 125 mls/hr IV ASDIRECTED VILMA Stop: 05/25/18 23:00 Lidocaine/Sodium Bicarbonate (Buffered Lidocaine 1% In Ns 8.4%) 0.25 ml IDERM ONETIME PRN PRN Reason: Prior to IV Start Stop: 05/25/18 23:00 Sodium Chloride (Saline Flush) 10 ml FLUSH ASDIRECTED PRN PRN Reason: Keep Vein Open Stop: 05/25/18 23:00
[2018-05-25] MEDS ORDERED: Albuterol 0.083% 2.5 MG/3 ML Neb Soln NEB ONE (09:26)
[2018-05-25] MEDS ORDERED: Propofol 200 MG/20 ML SDV ONE ×2 (09:47→10:19)
[2018-05-25] MEDS ORDERED: Lidocaine 1% 4 ML ONE (09:47)
[2018-05-25] MEDS ORDERED: fentaNYL 100 MCG/2 ML SDV ONE (09:47)
--- NOTE | 2018-05-25 10:37 | PCM48HPAN ---
Post Anesthesia Note - EVALUATION WITHIN 48HRS OF ANESTHETIC Vital Signs in Normal Range: Yes Patient Participated in Evaluation: Yes Respiratory Function Stable: Yes Airway Patent: Yes Cardiovascular Function Stable: Yes Hydration Status Stable: Yes Pain Control Satisfactory: Yes Nausea and Vomiting Control Satisfactory: Yes Mental Status Recovered: Yes Pulse Rate: 64 Resp Rate: 16 Temperature: 36.4 C Blood Pressure: 149/89
--- NOTE | 2018-05-25 11:09 | OR ---
DATE OF OPERATION: 05/25/2018 SURGEON: Juan Hurtado MD PREOPERATIVE DIAGNOSIS: Personal history of prior colon cancer. POSTOPERATIVE DIAGNOSIS: Personal history of prior colon cancer. OPERATION PERFORMED: Total colonoscopy. ANESTHESIA: MAC. SPECIMEN: None. OPERATIVE FINDINGS: Normal colonoscopy. RECOMMENDATION: Followup colonoscopy in 1 to 2 years. INDICATION FOR PROCEDURE: This 57-year-old male had a colon cancer resection a year ago. He is here for his first-year postoperative followup colonoscopy. DESCRIPTION OF PROCEDURE: After adequate preparation, a colonoscope was inserted into the rectum. This was easily passed all the way to the right side of the colon. I could easily see the anastomosis of the small bowel to the right colon. A photograph of this was taken. The bowel prep was good. On withdrawal of the scope, the patient had no recurrent polyps or anything abnormal was seen. Air was suctioned from the colon and the scope removed. ESTIMATED BLOOD LOSS: MMODAL /[id number]
[2018-05-25 11:16] VITALS: BP 129/71
== END 2018-05-25 11:40 | disposition home or self-care (01) ==
LOC: JD.SDS 08:51
PROVIDERS: ATTEND Surgery
DX: C18.9 Malignant neoplasm of colon, unspecified (principal); J44.9 Chronic obstructive pulmonary disease, unspecified; I10 Essential (primary) hypertension; F17.210 Nicotine dependence, cigarettes, uncomplicated; E66.9 Obesity, unspecified; Z68.36 Body mass index [BMI] 36.0-36.9, adult; E11.9 Type 2 diabetes mellitus without complications; E78.5 Hyperlipidemia, unspecified; G47.30 Sleep apnea, unspecified; E78.00 Pure hypercholesterolemia, unspecified; Z85.118 Personal history of other malignant neoplasm of bronchus and lung; Z86.010 Personal history of colon polyps; Z79.4 Long term (current) use of insulin; Z79.01 Long term (current) use of anticoagulants; Z90.2 Acquired absence of lung [part of]; Z90.49 Acquired absence of other specified parts of digestive tract; Z88.1 Allergy status to other antibiotic agents; Z99.89 Dependence on other enabling machines and devices
CPT/HCPCS: 36415; 45378; 80053; 85025; 94640; J2001; J2704; J3010; J7120

== ENCOUNTER 2019-09-15 22:38 | Inpatient (IN) | payer MEDICARE, BC, OTHER ==
[2019-09-15] MEDS ORDERED: Sodium Chloride 0.9% 10 ML Syringe FLUSH PRN (23:28)
[2019-09-16] MEDS ORDERED: HYDROmorphone 0.5 MG/0.5 ML Syringe IVPUSH ONE ×2 (00:12→02:53)
[2019-09-16] MEDS ORDERED: Ondansetron 4 MG/2 ML SDV IVPUSH ONE (00:12)
--- NOTE | 2019-09-16 00:38 | EDM.PDOC ---
ED HPI GENERAL MEDICAL PROBLEM - General Chief Complaint: Abdominal Pain Stated Complaint: ABDOMINAL PAIN Time Seen by Provider: 09/16/19 00:21 Source of Information: Reports: Patient, Family () History Limitations: Reports: No Limitations - History of Present Illness INITIAL COMMENTS - FREE TEXT/NARRATIVE: Mr. Martin is a very pleasant 58-year-old gentleman with a past medical history for colon cancer, status post a hemicolectomy, who now presents to the ED stating that he was woken with lower abdominal cramps around 17:00 last evening,, 09/15/2019. The pain does not radiate, and he has not identified any modifiers. He has had nausea and diaphoresis, but did not have any vomiting until recently, here in the ED. No recent fever, constipation, or diarrhea. No prior similar symptoms. The patient did not take any [id number] or home remedies prior to coming to the ED. He last ate around 17:00. Here in the ED, the patient's initial BP is found to be elevated at 183/83, otherwise, he is hemodynamically stable, afebrile, saturating 96% on room air. Other than his current symptoms, the patient denies recent fever, chills, sore throat, ear pain, nasal or sinus congestion, cough, dyspnea, chest pain, palpitations, constipation, diarrhea, urinary symptoms, recent weight gain or weight loss, recent bloody bowel movements or black bowel movements, recent joint aches, headaches, or rashes. The patient's PCP is Ivone Ovalles NP. Lower Abdomen Pain Score (Numeric/FACES): 10 - Related Data Allergies Allergy/AdvReac Type Severity Reaction Status Date / Time niacin Allergy Hives Verified 09/16/19 04:53 Home Meds: Home Meds Albuterol [IJD: Ventolin HFA] 1 puff INH Q4HR PRN 01/14/16 [History] Fluticasone Propionate [Flovent Hfa] 1 puff INH BID 01/14/16 [History] Lisinopril 40 mg PO BID 01/14/16 [History] Metoprolol Tartrate 100 tab PO BID 01/14/16 [History] Simvastatin 20 mg PO BEDTIME 01/14/16 [History] metFORMIN HCl [Metformin HCl] 1,000 mg PO BID 01/14/16 [History] Aspirin 81 mg PO DAILY 10/29/16 [History] Diltiazem [Cardizem CD] 180 mg PO DAILY 10/29/16 [History] Insulin Aspart [NovoLOG] 1 dose SQ TID PRN 10/29/16 [History] Insulin Degludec [Tresiba Flextouch U-200] 120 mg SQ QAM 10/29/16 [History] Chlorthalidone 50 mg PO DAILY 12/15/16 [History] Tiotropium Br/Olodaterol HCl [Stiolto Respimat Inhal [place]] 2 puff INH DAILY 12/15/16 [History] Rivaroxaban [Xarelto] 20 mg PO DAILY 05/25/18 [History] Past Medical History HEENT History: Reports: Impaired Vision (wears glasses) Cardiovascular History: Reports: Afib (postoperative), Aneurysm (ascending aortic), High Cholesterol (untreated), Hypertension (untreated) Respiratory History: Reports: COPD, Sleep Apnea Musculoskeletal History: Reports: Osteoarthritis Endocrine/Metabolic History: Reports: Diabetes, Type II, Obesity/BMI 30+ Oncologic (Cancer) History: Reports: Colon (s/p hemicolectomy), Lung (s/p right lobectomy, CTx) - Infectious Disease History Infectious Disease History: Reports: Chicken Pox, Mumps - Past Surgical History HEENT Surgical History: Reports: Adenoidectomy, Myringotomy w Tube(s), Tonsillectomy GI Surgical History: Reports: Colonoscopy, Other (See Below) (Right hemicolectomy for colon cancer Oct 2016) Oncologic Surgical History: Reports: Other (See Below) (Right lower lobectomy) Social & Family History - Family History Family Medical History: Noncontributory - Tobacco Use Smoking Status *Q: Current Every Day Smoker Years of Tobacco use: 44 Packs/Tins Daily: 1 Packs/Tins Daily Comment: Down from 2-3 ppd - Caffeine Use Caffeine Use: Reports: Coffee, Soda, Tea - Alcohol Use Alcohol Use History: Yes Alcohol Use Frequency: Socially - Recreational Drug Use Recreational Drug Use: Yes Drug Use in Last 12 Months: Yes Recreational Drug Type: Reports: Marijuana/Hashish (smokes daily), Other (see below) (States has tried "a little bit of everything") - Living Situation & Occupation Living situation: Reports: , with Spouse Occupation: Unemployed ED ROS GENERAL - Review of Systems Review Of Systems: Comprehensive ROS is negative, except as noted in HPI. ED EXAM, GI/ABD - Physical Exam Exam: See Below Exam Limited By: No Limitations General Appearance: Alert, WD/WN, No Apparent Distress Eyes: Bilateral: Normal Appearance, EOMI Ears: Normal External Exam, Hearing Grossly Normal Nose: Normal Inspection Throat/Mouth: Normal Inspection, Normal Lips, Normal Voice, No Airway Compromise Head: Atraumatic, Normocephalic Neck: Normal Inspection, Full Range of Motion Respiratory/Chest: No Respiratory Distress, Lungs Clear, Normal Breath Sounds, No Accessory Muscle Use Cardiovascular: Normal Peripheral Pulses, Regular Rate, Rhythm, No Gallop, No JVD, No Murmur, No Rub GI/Abdominal Exam: Normal Bowel Sounds, Soft, No Organomegaly, No Distention, No Abnormal Bruit, No Mass, Tender (Central/periumbilical abdomen only. Essentially nontender elsewhere.) (Male) Exam: Deferred Rectal (Males) Exam: Deferred Back Exam: Normal Inspection, Full Range of Motion, NT Extremities: Normal Inspection, Normal Range of Motion, Normal Capillary Refill Neurological: Alert, Oriented, Normal Cognition, No Motor/Sensory Deficits Psychiatric: Normal Affect Skin Exam: Warm, Dry, Intact, Normal Color, No Rash Course - Vital Signs Last Recorded V/S: Last Vital Signs Temp 36.3 C 09/16/19 07:59 Pulse 75 09/16/19 07:59 Resp 16 09/16/19 07:59 BP 187/80 H 09/16/19 07:59 Pulse Ox 94 L 09/16/19 07:59 - Orders/Labs/Meds Orders: Active Orders 24 hr Category Date Time Status Admission Status [Patient Status] [ADT] Routine ADT 09/16/19 03:51 Active Gastrointestinal Tube Mgmt [RC] Q4HR Care 09/16/19 02:35 Active Abdomen Pelvis w Cont [CT] Stat Exams 09/16/19 00:36 Taken Chest 1V Frontal [CR] Stat Exams 09/16/19 02:39 Taken Sodium Chloride 0.9% [Saline Flush] Med 09/15/19 23:28 Active 10 ml FLUSH ASDIRECTED PRN Sodium Chloride 0.9% [Saline Flush] Med 09/16/19 01:35 Active 10 ml FLUSH ONETIME PRN NG [Nasogastric Orogastric Tube Insertion] [OM.PC] Oth 09/16/19 02:35 Ordered Routine Peripheral IV Insertion Adult [OM.PC] Stat Ot 09/15/19 23:27 Ordered Medication Orders Albuterol (Proventil Neb Soln) 2.5 mg NEB Q2H PRN PRN Reason: Shortness Of Breath/wheezing Albuterol/Ipratropium (Duoneb 3.0-0.5 Mg/3 Ml) 3 ml NEB Q4H PRN PRN Reason: Shortness Of Breath/wheezing Dextrose/Water (Dextrose 50% In Water) 50 ml IVPUSH ASDIRECTED PRN PRN Reason: Hypoglycemia Enoxaparin Sodium (Lovenox) 40 mg SUBCUT DAILY REPLACED BY [facility] Last Admin: 09/16/19 08:12 Dose: 40 mg Documented by: BLANCO Hydralazine HCl (Apresoline) 20 mg IVPUSH Q4H PRN PRN Reason: Hypertension Hydromorphone HCl (Dilaudid) 0.5 mg IVPUSH Q2H PRN PRN Reason: Pain (severe 7-10) Potassium Chloride/Dextrose/Sod Cl (D5 1/2 Ns W/ 20 Meq/L Kcl) 1,000 mls @ 125 mls/hr IV ASDIRECTED REPLACED BY [facility] Last Admin: 09/16/19 06:10 Dose: 125 mls/hr Documented by: EDWIN Insulin Human Lispro (Humalog) 0 unit SUBCUT Q6H PRN; Protocol PRN Reason: Hyperglycemia Metoclopramide HCl (Reglan) 5 mg IVPUSH Q6H REPLACED BY [facility] Stop: 09/17/19 02:01 Last Admin: 09/16/19 08:12 Dose: 5 mg Documented by: BLANCO Ondansetron HCl (Zofran) 4 mg IV Q4H PRN PRN Reason: Nausea/Vomiting Sodium Chloride (Saline Flush) 10 ml FLUSH ASDIRECTED PRN PRN Reason: Keep Vein Open Last Admin: 09/16/19 00:28 Dose: 10 ml Documented by: ALEISHA Sodium Chloride (Saline Flush) 10 ml FLUSH ONETIME PRN PRN Reason: Keep Vein Open Last Admin: 09/16/19 01:49 Dose: 10 ml Documented by: TERESA Labs: Laboratory Tests 09/15/19 09/15/19 09/16/19 Range/Units 00:10 00:10 00:10 WBC 15.76 H (4.23-9.07) K/mm3 RBC 5.17 (4.63-6.08) M/mm3 Hgb 16.6 (13.7-17.5) gm/dl Hct 45.8 (40.1-51.0) % MCV 88.6 (79.0-92.2) fl MCH 32.1 (25.7-32.2) pg MCHC 36.2 H (32.2-35.5) g/dl RDW Std Deviation 41.2 (35.1-43.9) fL Plt Count 209 (163-337) K/mm3 MPV 9.5 (9.4-12.3) fl Neut % (Auto) 90.6 H (34.0-67.9) % Lymph % (Auto) 5.7 L (21.8-53.1) % [place] % (Auto) 3.2 L (5.3-12.2) % Eos % (Auto) 0.1 L (0.8-7.0) Baso % (Auto) 0.1 (0.1-1.2) % Neut # (Auto) 14.29 H (1.78-5.38) K/mm3 Lymph # (Auto) 0.90 L (1.32-3.57) K/mm3 [place] # (Auto) 0.50 (0.30-0.82) K/mm3 Eos # (Auto) 0.01 L (0.04-0.54) K/mm3 Baso # (Auto) 0.02 (0.01-0.08) K/mm3 Manual Slide Review Abnormal smear Sodium 139 (136-145) mEq/L Potassium 4.2 (3.5-5.1) mEq/L Chloride 102 (98-107) mEq/L Carbon Dioxide 32 (21-32) mEq/L Anion Gap 9.2 (5-15) BUN 14 (7-18) mg/dL Creatinine 1.0 (0.7-1.3) mg/dL Est Cr Clr Drug Dosing 80.52 mL/min Estimated GFR (MDRD) > 60 (>60) mL/min BUN/Creatinine Ratio 14.0 (14-18) Glucose 358 H (74-106) mg/dL POC Glucose (70-105) mg/dL Hemoglobin A1c 8.30 H (4.50-6.20) % Calcium 9.0 (8.5-10.1) mg/dL Total Bilirubin 0.3 (0.2-1.0) mg/dL AST 16 (15-37) U/L ALT 24 (16-63) U/L Alkaline Phosphatase 71 (46-116) U/L Total Protein 6.6 (6.4-8.2) g/dl Albumin 2.5 L (3.4-5.0) g/dl Globulin 4.1 gm/dL Albumin/Globulin Ratio 0.6 L (1-2) Urine Color (Yellow) Urine Appearance (Clear) Urine pH (5.0-8.0) Ur Specific [place] (1.005-1.030) Urine Protein (Negative) Urine Glucose (UA) (Negative) Urine Ketones (Negative) Urine Occult Blood (Negative) Urine Nitrite (Negative) Urine Bilirubin (Negative) Urine Urobilinogen (0.2-1.0) Ur Leukocyte Esterase (Negative) Urine RBC (0-5) /hpf Urine WBC (0-5) /hpf Ur Squamous Epith Cells (0-5) /hpf Urine Bacteria (FEW) /hpf Urine Mucus (FEW) /hpf COVID-19 (ARMAND) (NEGATIVE) 09/16/19 09/16/19 09/16/19 Range/Units 00:24 03:27 03:28 WBC (4.23-9.07) K/mm3 RBC (4.63-6.08) M/mm3 Hgb (13.7-17.5) gm/dl Hct (40.1-51.0) % MCV (79.0-92.2) fl MCH (25.7-32.2) pg MCHC (32.2-35.5) g/dl RDW Std Deviation (35.1-43.9) fL Plt Count (163-337) K/mm3 MPV (9.4-12.3) fl Neut % (Auto) (34.0-67.9) % Lymph % (Auto) (21.8-53.1) % [place] % (Auto) (5.3-12.2) % Eos % (Auto) (0.8-7.0) Baso % (Auto) (0.1-1.2) % Neut # (Auto) (1.78-5.38) K/mm3 Lymph # (Auto) (1.32-3.57) K/mm3 [place] # (Auto) (0.30-0.82) K/mm3 Eos # (Auto) (0.04-0.54) K/mm3 Baso # (Auto) (0.01-0.08) K/mm3 Manual Slide Review Sodium (136-145) mEq/L Potassium (3.5-5.1) mEq/L Chloride (98-107) mEq/L Carbon Dioxide (21-32) mEq/L Anion Gap (5-15) BUN (7-18) mg/dL Creatinine (0.7-1.3) mg/dL Est Cr Clr Drug Dosing mL/min Estimated GFR (MDRD) (>60) mL/min BUN/Creatinine Ratio (14-18) Glucose (74-106) mg/dL POC Glucose 236 H (70-105) mg/dL Hemoglobin A1c (4.50-6.20) % Calcium (8.5-10.1) mg/dL Total Bilirubin (0.2-1.0) mg/dL AST (15-37) U/L ALT (16-63) U/L Alkaline Phosphatase (46-116) U/L Total Protein (6.4-8.2) g/dl Albumin (3.4-5.0) g/dl Globulin gm/dL Albumin/Globulin Ratio (1-2) Urine Color Yellow (Yellow) Urine Appearance Clear (Clear) Urine pH 7.0 (5.0-8.0) Ur Specific [place] 1.025 (1.005-1.030) Urine Protein 3+ H (Negative) Urine Glucose (UA) 2+ H (Negative) Urine Ketones Negative (Negative) Urine Occult Blood 2+ H (Negative) Urine Nitrite Negative (Negative) Urine Bilirubin Negative (Negative) Urine Urobilinogen 0.2 (0.2-1.0) Ur Leukocyte Esterase Negative (Negative) Urine RBC 5-10 H (0-5) /hpf Urine WBC 0-5 (0-5) /hpf Ur Squamous Epith Cells 0-5 (0-5) /hpf Urine Bacteria Not seen (FEW) /hpf Urine Mucus Not seen (FEW) /hpf COVID-19 (ARMAND) Negative (NEGATIVE) Meds: Medications Generic Name Dose Route Start Last Admin Trade Name Freq PRN Reason Stop Dose Admin Albuterol 2.5 mg 09/16/19 05:03 Proventil Neb Soln NEB Q2H PRN Shortness Of Breath/wheezing Albuterol/Ipratropium 3 ml 09/16/19 05:03 Duoneb 3.0-0.5 Mg/3 Ml NEB Q4H PRN Shortness Of Breath/wheezing Dextrose/Water 50 ml 09/16/19 07:09 Dextrose 50% In Water IVPUSH ASDIRECTED PRN Hypoglycemia Enoxaparin Sodium 40 mg 09/16/19 09:00 09/16/19 08:12 Lovenox SUBCUT 40 mg DAILY VILMA Administration Hydralazine HCl 20 mg 09/16/19 08:35 Apresoline IVPUSH Q4H PRN Hypertension Hydromorphone HCl 0.5 mg 09/16/19 05:03 Dilaudid IVPUSH Q2H PRN Pain (severe 7-10) Potassium Chloride/Dextrose/Sod Cl 1,000 mls @ 125 mls/hr 09/16/19 06:00 09/16/19 06:10 D5 1/2 Ns W/ 20 Meq/L Kcl IV 125 mls/hr ASDIRECTED VILMA Administration Insulin Human Lispro 0 unit 09/16/19 07:09 Humalog SUBCUT Q6H PRN Hyperglycemia Protocol Metoclopramide HCl 5 mg 09/16/19 08:00 09/16/19 08:12 Reglan IVPUSH 09/17/19 02:01 5 mg Q6H VILMA Administration Ondansetron HCl 4 mg 09/16/19 05:03 Zofran IV Q4H PRN Nausea/Vomiting Sodium Chloride 10 ml 09/15/19 23:28 09/16/19 00:28 Saline Flush FLUSH 10 ml ASDIRECTED PRN Administration Keep Vein Open Sodium Chloride 10 ml 09/16/19 01:35 09/16/19 01:49 Saline Flush FLUSH 10 ml ONETIME PRN Administration Keep Vein Open Discontinued Medications Generic Name Dose Route Start Last Admin Trade Name Freq PRN Reason Stop Dose Admin Clonidine HCl 0.2 mg 09/16/19 08:35 Catapres PO 09/16/19 08:36 ONETIME ONE Diatrizoate Meglum/Diatrizoate Sod 120 ml 09/16/19 01:49 09/16/19 01:51 Gastrografin 37% PO 09/16/19 01:50 120 ml ONETIME ONE Administration Hydralazine HCl 10 mg 09/16/19 05:07 Apresoline IVPUSH Q4H PRN Hypertension Hydromorphone HCl 0.5 mg 09/16/19 00:12 09/16/19 00:28 Dilaudid IVPUSH 09/16/19 00:13 0.5 mg ONETIME ONE Administration Hydromorphone HCl 0.5 mg 09/16/19 02:53 09/16/19 03:00 Dilaudid IVPUSH 09/16/19 02:54 0.5 mg ONETIME ONE Administration Sodium Chloride 1,000 mls @ 150 mls/hr 09/16/19 00:45 09/16/19 00:38 Normal Saline IV 150 mls/hr ASDIRECTED VILMA Administration Lactated Ringer's 1,000 mls @ 999 mls/hr 09/16/19 01:39 09/16/19 02:10 Ringers, Lactated IV 09/16/19 02:39 999 mls/hr .BOLUS ONE Administration Insulin Human Regular 100 unit 100 mls @ 6 mls/hr 09/16/19 01:45 09/16/19 06:00 / Sodium Chloride IV 3 unit/hr TITRATE VILMA 3 mls/hr Titration Protocol 6 UNIT/HR Sodium Chloride 1,000 mls @ 125 mls/hr 09/16/19 05:15 09/16/19 05:24 Normal Saline IV 125 mls/hr ASDIRECTED VILMA Administration Iopamidol 100 ml 09/16/19 01:35 09/16/19 01:49 Isovue-300 (61%) IVPUSH 09/16/19 01:36 100 ml ONETIME ONE Administration Lidocaine HCl Confirm 09/16/19 02:50 09/16/19 03:49 Xylocaine 2% Jelly Administered 09/16/19 02:51 Not Given Dose 10 ml .ROUTE .STK-MED ONE Lidocaine HCl 10 ml 09/16/19 03:06 09/16/19 03:48 Xylocaine 2% Jelly MUCMEM 07/18/20 03:07 10 ml ONETIME ONE Administration Ondansetron HCl 4 mg 09/16/19 00:12 09/16/19 00:28 Zofran IVPUSH 09/16/19 00:13 4 mg ONETIME ONE Administration - Re-Assessments/Exams Free Text/Narrative Re-Assessment/Exam: 09/16/19 00:37 As above, the patient developed lower abdominal cramps around 17:00 this afternoon. He had some nausea and diaphoresis earlier, and he had some vomiting around midnight, here in the ED. Otherwise, he has not had any constipation, diarrhea, or fever. On physical exam, the patient has some central abdominal tenderness, although not much lower abdominal tenderness. A CBC CMP, and urinalysis were ordered by the midlevel; I have added a CT of the abdomen and pelvis with oral and IV contrast to further evaluate the patient's abdomen. IV Dilaudid and IV Zofran were ordered by the midlevel; I have added IV fluid. 09/16/19 01:41 The patient's CBC is remarkable for WBC count elevated at 15.76, with the remainder of his CBC being unremarkable. His CMP is remarkable for a blood glucose elevated at 358, with the remainder of his CMP being unremarkable. His urinalysis is remarkable for 3+ protein and 2+ glucose, 2+ occult blood with 5-10 RBCs, leukocyte Estrace negative with 0-5 WBCs, nitrate negative with no bacteria seen, and 0-5 squamous epithelial cells. Based on the above, I have discontinued the patient's NS at 150 mL/hr, and ordered LR at 1 L/hr, along with an insulin drip to start at 6 units/h. 09/16/19 02:29 CT of the abdomen and pelvis with oral and IV contrast as read by [facility] as: 1. Small bowel obstruction with transition point in the right abdomen related to a swirled appearance of a loop of small bowel. 2. Small amount of free fluid. 09/16/19 02:[address] Ro at 02:31. He recommended that we place a large 18 [place] NG tube to low intermittent suction, then check placement with a chest x-ray. He recommended that the patient be admitted to the Hospitalist, with him on consult. Case then discussed with Dr. Sanchez at 02:35. He accepted the patient for admission to the ICU. 09/16/19 02:45 Test results and my conversations with Dr. Ro and Dr. Sanchez discussed with the patient and his . The patient is agreeable. Departure - Departure Time of Disposition: 02:46 Disposition: Admitted As Inpatient 66 Condition: Good Clinical Impression: Small bowel obstruction, Hyperglycemia due to type 2 diabetes mellitus - Discharge Information *PRESCRIPTION DRUG MONITORING PROGRAM REVIEWED*: Not Applicable *COPY OF PRESCRIPTION DRUG MONITORING REPORT IN PATIENT ARMEN: Not Applicable Sepsis Event Note (ED) - Evaluation Sepsis Screening Result: No Definite Risk - Focused Exam Vital Signs: Vital Signs Temp Pulse Resp BP Pulse Ox 09/15/19 22:57 36.2 C 09/15/19 22:47 75 18 183/83 H 96 - My Orders Last 24 Hours: My Active Orders 09/16/19 00:36 Abdomen Pelvis w Cont [CT] Stat 09/16/19 01:35 Sodium Chloride 0.9% [Saline Flush] 10 ml FLUSH ONETIME PRN 09/16/19 02:35 Gastrointestinal Tube Mgmt [RC] Q4HR NG [Nasogastric Orogastric Tube Insertion] [OM.PC] Routine 09/16/19 02:39 Chest 1V Frontal [CR] Stat 09/16/19 03:51 Admission Status [Patient Status] [ADT] Routine - Assessment/Plan Last 24 Hours: My Active Orders 09/16/19 00:36 Abdomen Pelvis w Cont [CT] Stat 09/16/19 01:35 Sodium Chloride 0.9% [Saline Flush] 10 ml FLUSH ONETIME PRN 09/16/19 02:35 Gastrointestinal Tube Mgmt [RC] Q4HR NG [Nasogastric Orogastric Tube Insertion] [OM.PC] Routine 09/16/19 02:39 Chest 1V Frontal [CR] Stat 09/16/19 03:51 Admission Status [Patient Status] [ADT] Routine
[2019-09-16] MEDS ORDERED: Sodium Chloride 0.9% 1,000 ML IV SCH ×2 (00:45→05:15)
[2019-09-16] MEDS ORDERED: Iopamidol 612 MG/ML 100 ML Bottle IVPUSH ONE (01:35)
[2019-09-16] MEDS ORDERED: Sodium Chloride 0.9% 10 ML Syringe FLUSH PRN (01:35)
[2019-09-16] MEDS ORDERED: Lactated Ringers 1,000 ML IV ONE (01:39)
[2019-09-16] MEDS ORDERED: Diatrizoate Meglumine/Diatrizoate Sodium 37% 120 ML Bottle PO ONE (01:49)
[2019-09-16] MEDS ORDERED: Lidocaine 2% Jelly 10 ML Urojet ONE (02:50)
[2019-09-16] MEDS ORDERED: Lidocaine 2% Jelly 10 ML Urojet MUCMEM ONE (03:06)
--- NOTE | 2019-09-16 03:24 | PCM.CONS ---
H&P History of Present Illness - General Date of Service: 09/16/19 Source of Information: Patient, Old Records, Provider History Limitations: Reports: No Limitations - History of Present Illness Onset of Symptoms: Reports: Today Other HPI/Comments: Mr. Martin is a 58 yo man presenting with abdominal pain. He has never had pain like this. It began around dinner time yesterday. The pain has gotten progre ssively worse, and he has also had nausea and vomited once in the emergency room. He can't remember passing flatus recently. His last bowel movement was today. His history is significant for stage IA right LL lung cancer s/p resection via thoractomy in 2016. THe cancer was detected during preoperative workup for a right colectomy after a dysplastic cecal polyp had been identified on screening colonoscopy. Postoperatively, he had atrial fibrillation for which he had started eliquis. He no longer takes this. After recovery from thoracic surgery, the patient went for right colectomy in October 2016 and was found to have [id number] adenocarcinoma. He received adjuvant chemotherapy. He reports he has had periodic surveillance including CT scans since his operation, with no evidence of recurrence. He has diabetes and HTN and is noncompliant with medication. In the ER, his glucose is > 300, which on review of clinic records from over a year ago, seems to be his baseline. His WBC is 15,000, which may be high in part due to dehydration/hemoconcentration. CT shows evidence of low-grade small bowel obstruction near the ileocolic anastomosis. Clinically the patient appears to be in no distress with a soft abdomen. Lower Abdomen Pain Score (Numeric/FACES): 10 - Related Data Allergies/Adverse Reactions: Allergies Allergy/AdvReac Type Severity Reaction Status Date / Time niacin Allergy Hives Verified 09/15/19 22:51 Home Medications: Home Meds Albuterol [IJD: Ventolin HFA] 1 puff INH Q4HR PRN 01/14/16 [History] Fluticasone Propionate [Flovent Hfa] 1 puff INH BID 01/14/16 [History] Lisinopril 40 mg PO BID 01/14/16 [History] Metoprolol Tartrate 100 tab PO BID 01/14/16 [History] Simvastatin 20 mg PO BEDTIME 01/14/16 [History] metFORMIN HCl [Metformin HCl] 1,000 mg PO BID 01/14/16 [History] Aspirin 81 mg PO DAILY 10/29/16 [History] Diltiazem [Cardizem CD] 180 mg PO DAILY 10/29/16 [History] Insulin Aspart [NovoLOG] 1 dose SQ TID PRN 10/29/16 [History] Insulin Degludec [Tresiba Flextouch U-200] 120 mg SQ QAM 10/29/16 [History] Chlorthalidone 50 mg PO DAILY 12/15/16 [History] Tiotropium Br/Olodaterol HCl [Stiolto Respimat Inhal [place]] 2 puff INH DAILY 12/15/16 [History] Rivaroxaban [Xarelto] 20 mg PO DAILY 05/25/18 [History] Past Medical History HEENT History: Reports: Impaired Vision, Otitis Media, Other (See Below) Other HEENT History: wears glasses Cardiovascular History: Reports: Afib, High Cholesterol, Hypertension, Other (See Below) Other Cardiovascular History: post op afib, edema, venous insufficiency Respiratory History: Reports: COPD, Sleep Apnea, SOB, Other (See Below) Other Respiratory History: R lung mass and adenocarcinoma Gastrointestinal History: Reports: Colon Polyp Genitourinary History: Reports: Other (See Below) Other Genitourinary History: dysuria [employer] History: Reports: None Musculoskeletal History: Reports: Arthritis, Osteoarthritis Neurological History: Reports: None Psychiatric History: Reports: None Endocrine/Metabolic History: Reports: Diabetes, Type II, Obesity/BMI 30+ Hematologic History: Reports: None Immunologic History: Reports: None Oncologic (Cancer) History: Reports: Colon, Lung Dermatologic History: Reports: None - Infectious Disease History Infectious Disease History: Reports: Chicken Pox, Mumps - Past Surgical History Head Surgeries/Procedures: Reports: None HEENT Surgical History: Reports: Adenoidectomy, Myringotomy w Tube(s), Tonsillectomy, Other (See Below) Respiratory Surgical History: Reports: Other (See Below) Other Respiratory Surgeries/Procedures: Right lower lobe lobectomy GI Surgical History: Reports: Colonoscopy, Other (See Below) Other GI Surgeries/Procedures: right hemicolectomy for colon cancer 10/2016 Male Surgical History: Reports: None Neurological Surgical History: Reports: None Oncologic Surgical History: Reports: None Dermatological Surgical History: Reports: None Social & Family History - Family History Family Medical History: Noncontributory - Tobacco Use Smoking Status *Q: Current Every Day Smoker Years of Tobacco use: 40 Packs/Tins Daily: 1 - Caffeine Use Caffeine Use: Reports: Coffee, Soda, Tea - Recreational Drug Use Recreational Drug Use: Yes Recreational Drug Type: Reports: Marijuana/Hashish Recreational Drug Use Frequency: Daily H&P Review of Systems - Review of Systems: Review Of Systems: See Below General: Reports: Malaise, Weight Loss, Other (intentional weight loss, >100 lb since 2017 surgery) HEENT: Reports: No Symptoms Pulmonary: Reports: Wheezing, Cough Cardiovascular: Reports: No Symptoms Gastrointestinal: Reports: Abdominal Pain, Nausea, Vomiting Genitourinary: Reports: No Symptoms Musculoskeletal: Reports: No Symptoms Skin: Reports: No Symptoms Psychiatric: Reports: No Symptoms Neurological: Reports: No Symptoms Hematologic/Lymphatic: Reports: No Symptoms Immunologic: Reports: No Symptoms Exam - Exam Exam: See Below - Vital Signs Vital Signs: Last Vital Signs Temp 36.2 C 09/15/19 22:57 Pulse 75 09/15/19 22:47 Resp 18 09/15/19 22:47 BP 183/83 H 09/15/19 22:47 Pulse Ox 96 09/15/19 22:47 Weight: 93.44 kg - Exam General: Alert, Oriented, Cooperative HEENT: Conjunctiva Clear Neck: Trachea Midline Lungs: Normal Respiratory Effort, Rales, Wheezing Cardiovascular: Regular Rate, Regular Rhythm GI/Abdominal Exam: Soft, No Distention, No Mass, Tender, Other (umbilical hernia, reducible, not tender) Rectal (Males) Exam: Deferred Extremities: Normal Inspection, No Pedal Edema Skin: Other (hyperkeratosis/hyperpigmentation/scaling right anterior leg) Neuro Extensive - Mental Status: Alert, Oriented x3 Psychiatric: Normal Mood - Patient Data Lab Results Last 24 hrs: Laboratory Results - last 24 hr 09/15/19 09/15/19 09/16/19 Range/Units 00:10 00:10 00:24 WBC 15.76 H (4.23-9.07) K/mm3 RBC 5.17 (4.63-6.08) M/mm3 Hgb 16.6 (13.7-17.5) gm/dl Hct 45.8 (40.1-51.0) % MCV 88.6 (79.0-92.2) fl MCH 32.1 (25.7-32.2) pg MCHC 36.2 H (32.2-35.5) g/dl RDW Std Deviation 41.2 (35.1-43.9) fL Plt Count 209 (163-337) K/mm3 MPV 9.5 (9.4-12.3) fl Neut % (Auto) 90.6 H (34.0-67.9) % Lymph % (Auto) 5.7 L (21.8-53.1) % [place] % (Auto) 3.2 L (5.3-12.2) % Eos % (Auto) 0.1 L (0.8-7.0) Baso % (Auto) 0.1 (0.1-1.2) % Neut # (Auto) 14.29 H (1.78-5.38) K/mm3 Lymph # (Auto) 0.90 L (1.32-3.57) K/mm3 [place] # (Auto) 0.50 (0.30-0.82) K/mm3 Eos # (Auto) 0.01 L (0.04-0.54) K/mm3 Baso # (Auto) 0.02 (0.01-0.08) K/mm3 Manual Slide Review Abnormal smear Sodium 139 (136-145) mEq/L Potassium 4.2 (3.5-5.1) mEq/L Chloride 102 (98-107) mEq/L Carbon Dioxide 32 (21-32) mEq/L Anion Gap 9.2 (5-15) BUN 14 (7-18) mg/dL Creatinine 1.0 (0.7-1.3) mg/dL Est Cr Clr Drug Dosing 80.52 mL/min Estimated GFR (MDRD) > 60 (>60) mL/min BUN/Creatinine Ratio 14.0 (14-18) Glucose 358 H (74-106) mg/dL Calcium 9.0 (8.5-10.1) mg/dL Total Bilirubin 0.3 (0.2-1.0) mg/dL AST 16 (15-37) U/L ALT 24 (16-63) U/L Alkaline Phosphatase 71 (46-116) U/L Total Protein 6.6 (6.4-8.2) g/dl Albumin 2.5 L (3.4-5.0) g/dl Globulin 4.1 gm/dL Albumin/Globulin Ratio 0.6 L (1-2) Urine Color Yellow (Yellow) Urine Appearance Clear (Clear) Urine pH 7.0 (5.0-8.0) Ur Specific [place] 1.025 (1.005-1.030) Urine Protein 3+ H (Negative) Urine Glucose (UA) 2+ H (Negative) Urine Ketones Negative (Negative) Urine Occult Blood 2+ H (Negative) Urine Nitrite Negative (Negative) Urine Bilirubin Negative (Negative) Urine Urobilinogen 0.2 (0.2-1.0) Ur Leukocyte Esterase Negative (Negative) Urine RBC 5-10 H (0-5) /hpf Urine WBC 0-5 (0-5) /hpf Ur Squamous Epith Cells 0-5 (0-5) /hpf Urine Bacteria Not seen (FEW) /hpf Urine Mucus Not seen (FEW) /hpf Result Diagrams: 09/15/19 00:10 09/15/19 00:10 Sepsis Event Note - Evaluation Sepsis Screening Result: No Definite Risk - Focused Exam Vital Signs: Vital Signs Temp Pulse Resp BP Pulse Ox 09/15/19 22:57 36.2 C 09/15/19 22:47 75 18 183/83 H 96 Date Exam was Performed: 09/16/19 Time Exam was Performed: 03:16 *Q Meaningful Use (ADM) - VTE Risk Assess *Q Each Risk Factor Represents 1 Point: Age 41 - 59 years, Obesity ( BMI > 25 kg/m2), Abnormal Pulmonary Function (COPD) Total Score 1 Point Risk Factors: 3 Consult PN Assessment/Plan Procedures: Procedures AIRWAY INHALATION TREATMENT (05/25/18) ASSAY OF MAGNESIUM (11/10/16) ASSAY THYROID STIM HORMONE (10/19/18) CHEST X-RAY 1 VIEW FRONTAL (12/16/16) COLONOSCOPY AND BIOPSY (01/15/16) COMPLETE CBC AUTOMATED (10/14/16) COMPLETE CBC W/AUTO DIFF WBC (10/19/18) COMPREHEN METABOLIC PANEL (11/21/18) CT ABD & PELV 1/> REGNS (09/19/18) CT THORAX W/DYE (03/13/16) DIAGNOSTIC COLONOSCOPY (05/25/18) ECG MONIT/REPRT UP TO 48 HRS (04/20/17) ECG MONIT/REPRT UP TO 48 HRS (04/20/17) ELECTROCARDIOGRAM TRACING (05/19/18) FLUOROGUIDE FOR VEIN DEVICE (12/16/16) GLUCOSE BLOOD TEST (01/15/16) GLYCOSYLATED HEMOGLOBIN TEST (10/19/18) HT MUSCLE IMAGE SPECT MULT (02/27/16) INSERT TUNNELED CV CATH (12/16/16) LIPID PANEL (10/19/18) METABOLIC PANEL TOTAL CA (07/08/16) OFFICE/OUTPATIENT VISIT EST (11/21/18) OFFICE/OUTPATIENT VISIT EST (10/19/18) OFFICE/OUTPATIENT VISIT EST (01/07/17) ROUTINE VENIPUNCTURE (11/21/18) TISSUE EXAM BY PATHOLOGIST (01/15/16) TTE W/DOPPLER COMPLETE (02/27/16) UR ALBUMIN QUANTITATIVE (10/19/18) UR ALBUMIN SEMIQUANTITATIVE (12/17/15) URINALYSIS AUTO W/SCOPE (01/13/17) Problem List Initiated/Reviewed/Updated: Yes Plan: Recommendations: -Agree with plan for hospitalist admit for management of hyperglycemia and hypertension which are uncontrolled. -ordered CEA to have in our system. -18 F NG tube placement to low intermittent suction, monitor output, await signs of resolution of small bowel obstruction -no emergent surgical need; patient is in no distress and abdominal exam is benign -patient is high risk for going to OR given his COPD, obesity, poorly controlled diabetes and hypertension. However, I discussed the possibility of needing to operate to treat the obstruction if non-operative measures fail after 3-4 days. Requesting Provider: Dariana Date Consult Requested: 09/16/19 Reason for Consult: small bowel obstruction Patient History Reviewed: Yes Admission H&P Reviewed: No (not written yet) Notified Requestor: Yes Time Spent (in minutes): 31
--- NOTE | 2019-09-16 04:37 | PCM.HP.2 ---
H&P History of Present Illness - General Date of Service: 09/16/19 Admit Problem/Dx: Admission Diagnosis/Problem Admission Diagnosis/Problem Obstruction of colon - History of Present Illness Initial Comments - Free Text/Narative: 58-year-old male with history of diabetes, stage IA right lower lobe lung cancer s/p resection via thoracotomy in 2017, right colectomy for pT4aN0 adenocarcinoma with adjuvant chemotherapy, postoperative atrial fibrillation, COPD, hypertension, hyperlipidemia, obstructive sleep apnea on CPAP presents to the emergency department after developing severe lower abdominal pain after dinner at around 1700 hrs. Pain progressively got worse and patient had nausea and vomited once in the emergency department. Patient also had a bowel movement while in the emergency department. He cannot remember passing flatus though. Patient denies any hematochezia or melena. Patient has had periodic surveillance including CT scans since his colectomy. Patient is not compliant with his medications and stopped taking his insulin 3 years ago after his surgeries. He continues to smoke a pack per day since he was 15 years old. Patient also is a daily marijuana user. He has not been taking his medications since about 2016. In the emergency department patient had a CT scan which showed evidence of low- grade small bowel obstruction near the ileocecal anastomosis. Dr. Ro in surgery was consulted who felt he no emergent surgery was needed. He noted patient was in no distress and his abdominal exam was benign. He recommended an 18 Citizen [place] nasogastric tube placement to low intermittent suction and medical management. Patient was placed on an insulin drip secondary to blood sugars greater than 300 and his n.p.o. status. He was then transferred to the ICU for close monitoring. Initial labs showed a white count of 15,760 felt to be secondary to stress and dehydration, hemoglobin 16.6 likely hemoconcentrated, platelets of 209, sodium 139, potassium 4.2, bicarb 32, anion gap 9.2, BUN 14, creatinine 1.0, estimated GFR greater than 60, glucose 358, normal liver function except albumin of 2.5, UA showed 3+ protein, 2+ glucose, 2+ occult blood with 5-10 RBCs on microscopy. Chest x-ray showed NG tube in good placement with no significant acute findings. Lower Abdomen Pain Score (Numeric/FACES): 10 - Related Data Allergies/Adverse Reactions: Allergies Allergy/AdvReac Type Severity Reaction Status Date / Time niacin Allergy Hives Verified 09/16/19 04:53 Home Medications: Home Meds Albuterol [IJD: Ventolin HFA] 1 puff INH Q4HR PRN 01/14/16 [History] Fluticasone Propionate [Flovent Hfa] 1 puff INH BID 01/14/16 [History] Lisinopril 40 mg PO BID 01/14/16 [History] Metoprolol Tartrate 100 tab PO BID 01/14/16 [History] Simvastatin 20 mg PO BEDTIME 01/14/16 [History] metFORMIN HCl [Metformin HCl] 1,000 mg PO BID 01/14/16 [History] Aspirin 81 mg PO DAILY 10/29/16 [History] Diltiazem [Cardizem CD] 180 mg PO DAILY 10/29/16 [History] Insulin Aspart [NovoLOG] 1 dose SQ TID PRN 10/29/16 [History] Insulin Degludec [Tresiba Flextouch U-200] 120 mg SQ QAM 10/29/16 [History] Chlorthalidone 50 mg PO DAILY 12/15/16 [History] Tiotropium Br/Olodaterol HCl [Stiolto Respimat Inhal [place]] 2 puff INH DAILY 12/15/16 [History] Rivaroxaban [Xarelto] 20 mg PO DAILY 05/25/18 [History] Past Medical History HEENT History: Reports: Impaired Vision, Otitis Media, Other (See Below) Other HEENT History: wears glasses Cardiovascular History: Reports: Afib, High Cholesterol, Hypertension, Other (See Below) Other Cardiovascular History: post op afib, edema, venous insufficiency Respiratory History: Reports: COPD, Sleep Apnea, SOB, Other (See Below) Other Respiratory History: R lung mass and adenocarcinoma Gastrointestinal History: Reports: Colon Polyp Genitourinary History: Reports: Other (See Below) Other Genitourinary History: dysuria [employer] SAL[employer] History: Reports: None Musculoskeletal History: Reports: Arthritis, Osteoarthritis Neurological History: Reports: None Psychiatric History: Reports: None Endocrine/Metabolic History: Reports: Diabetes, Type II, Obesity/BMI 30+ Hematologic History: Reports: None Immunologic History: Reports: None Oncologic (Cancer) History: Reports: Colon, Lung Dermatologic History: Reports: None - Infectious Disease History Infectious Disease History: Reports: Chicken Pox, Mumps - Past Surgical History Head Surgeries/Procedures: Reports: None HEENT Surgical History: Reports: Adenoidectomy, Myringotomy w Tube(s), Tonsillectomy, Other (See Below) Respiratory Surgical History: Reports: Other (See Below) Other Respiratory Surgeries/Procedures: Right lower lobe lobectomy GI Surgical History: Reports: Colonoscopy, Other (See Below) Other GI Surgeries/Procedures: right hemicolectomy for colon cancer 10/2016 Male Surgical History: Reports: None Neurological Surgical History: Reports: None Oncologic Surgical History: Reports: None Dermatological Surgical History: Reports: None Social & Family History - Family History Family Medical History: Noncontributory - Tobacco Use Smoking Status *Q: Current Every Day Smoker Years of Tobacco use: 40 Packs/Tins Daily: 1 - Caffeine Use Caffeine Use: Reports: Coffee, Soda, Tea - Recreational Drug Use Recreational Drug Use: Yes Recreational Drug Type: Reports: Marijuana/Hashish Recreational Drug Use Frequency: Daily H&P Review of Systems - Review of Systems: Review Of Systems: Comprehensive ROS is negative, except as noted in HPI. Exam - Exam Exam: See Below - Vital Signs Vital Signs: Last Vital Signs Temp 97.5 F 09/16/19 04:01 Pulse 85 09/16/19 04:01 Resp 16 09/16/19 04:01 BP 145/88 H 09/16/19 04:01 Pulse Ox 95 09/16/19 04:01 Weight: 93.44 kg - Exam General: Alert, Oriented, 4 HEENT: Conjunctiva Clear, Hearing Intact, Mucosa Moist & [place] Neck: Supple, Trachea Midline, 2 Lungs: Clear to Auscultation, Normal Respiratory Effort Cardiovascular: Regular Rate, Regular Rhythm, Normal S1, Normal S2 GI/Abdominal Exam: Normal Bowel Sounds, Soft, No Organomegaly, No Distention, No Abnormal Bruit, No Mass, Tender (Diffusely tender worse in the right lower quadrant), Hernia (Umbilical, reducible, nontender) Rectal (Males) Exam: Deferred Extremities: Normal Range of Motion, Non-Tender, No Pedal Edema, Normal Capillary Refill, Other (Excoriation on the right howell without redness or warmth. No signs of infection.) Peripheral Pulses: 2+: Posterior Tibial (L), Posterior Tibial (R), Dorsalis Pedis (L), Dorsalis Pedis (R) Skin: Warm, Dry, Intact, Other (Stasis dermatitis lower extremities bilaterally) Neuro Extensive - Mental Status: Alert, Oriented x3, Normal Mood/Affect, Normal Cognition Neuro Extensive - Motor, Sensory, Reflexes: CN II-XII Intact Psychiatric: Alert, Normal Affect, Normal Mood - Patient Data Lab Results Last 24 hrs: Laboratory Results - last 24 hr 09/15/19 09/15/19 09/16/19 Range/Units 00:10 00:10 00:24 WBC 15.76 H (4.23-9.07) K/mm3 RBC 5.17 (4.63-6.08) M/mm3 Hgb 16.6 (13.7-17.5) gm/dl Hct 45.8 (40.1-51.0) % MCV 88.6 (79.0-92.2) fl MCH 32.1 (25.7-32.2) pg MCHC 36.2 H (32.2-35.5) g/dl RDW Std Deviation 41.2 (35.1-43.9) fL Plt Count 209 (163-337) K/mm3 MPV 9.5 (9.4-12.3) fl Neut % (Auto) 90.6 H (34.0-67.9) % Lymph % (Auto) 5.7 L (21.8-53.1) % [place] % (Auto) 3.2 L (5.3-12.2) % Eos % (Auto) 0.1 L (0.8-7.0) Baso % (Auto) 0.1 (0.1-1.2) % Neut # (Auto) 14.29 H (1.78-5.38) K/mm3 Lymph # (Auto) 0.90 L (1.32-3.57) K/mm3 [place] # (Auto) 0.50 (0.30-0.82) K/mm3 Eos # (Auto) 0.01 L (0.04-0.54) K/mm3 Baso # (Auto) 0.02 (0.01-0.08) K/mm3 Manual Slide Review Abnormal smear Sodium 139 (136-145) mEq/L Potassium 4.2 (3.5-5.1) mEq/L Chloride 102 (98-107) mEq/L Carbon Dioxide 32 (21-32) mEq/L Anion Gap 9.2 (5-15) BUN 14 (7-18) mg/dL Creatinine 1.0 (0.7-1.3) mg/dL Est Cr Clr Drug Dosing 80.52 mL/min Estimated GFR (MDRD) > 60 (>60) mL/min BUN/Creatinine Ratio 14.0 (14-18) Glucose 358 H (74-106) mg/dL POC Glucose (70-105) mg/dL Calcium 9.0 (8.5-10.1) mg/dL Total Bilirubin 0.3 (0.2-1.0) mg/dL AST 16 (15-37) U/L ALT 24 (16-63) U/L Alkaline Phosphatase 71 (46-116) U/L Total Protein 6.6 (6.4-8.2) g/dl Albumin 2.5 L (3.4-5.0) g/dl Globulin 4.1 gm/dL Albumin/Globulin Ratio 0.6 L (1-2) Urine Color Yellow (Yellow) Urine Appearance Clear (Clear) Urine pH 7.0 (5.0-8.0) Ur Specific [place] 1.025 (1.005-1.030) Urine Protein 3+ H (Negative) Urine Glucose (UA) 2+ H (Negative) Urine Ketones Negative (Negative) Urine Occult Blood 2+ H (Negative) Urine Nitrite Negative (Negative) Urine Bilirubin Negative (Negative) Urine Urobilinogen 0.2 (0.2-1.0) Ur Leukocyte Esterase Negative (Negative) Urine RBC 5-10 H (0-5) /hpf Urine WBC 0-5 (0-5) /hpf Ur Squamous Epith Cells 0-5 (0-5) /hpf Urine Bacteria Not seen (FEW) /hpf Urine Mucus Not seen (FEW) /hpf COVID-19 (ARMAND) (NEGATIVE) 09/16/19 09/16/19 Range/Units 03:27 03:28 WBC (4.23-9.07) K/mm3 RBC (4.63-6.08) M/mm3 Hgb (13.7-17.5) gm/dl Hct (40.1-51.0) % MCV (79.0-92.2) fl MCH (25.7-32.2) pg MCHC (32.2-35.5) g/dl RDW Std Deviation (35.1-43.9) fL Plt Count (163-337) K/mm3 MPV (9.4-12.3) fl Neut % (Auto) (34.0-67.9) % Lymph % (Auto) (21.8-53.1) % [place] % (Auto) (5.3-12.2) % Eos % (Auto) (0.8-7.0) Baso % (Auto) (0.1-1.2) % Neut # (Auto) (1.78-5.38) K/mm3 Lymph # (Auto) (1.32-3.57) K/mm3 [place] # (Auto) (0.30-0.82) K/mm3 Eos # (Auto) (0.04-0.54) K/mm3 Baso # (Auto) (0.01-0.08) K/mm3 Manual Slide Review Sodium (136-145) mEq/L Potassium (3.5-5.1) mEq/L Chloride (98-107) mEq/L Carbon Dioxide (21-32) mEq/L Anion Gap (5-15) BUN (7-18) mg/dL Creatinine (0.7-1.3) mg/dL Est Cr Clr Drug Dosing mL/min Estimated GFR (MDRD) (>60) mL/min BUN/Creatinine Ratio (14-18) Glucose (74-106) mg/dL POC Glucose 236 H (70-105) mg/dL Calcium (8.5-10.1) mg/dL Total Bilirubin (0.2-1.0) mg/dL AST (15-37) U/L ALT (16-63) U/L Alkaline Phosphatase (46-116) U/L Total Protein (6.4-8.2) g/dl Albumin (3.4-5.0) g/dl Globulin gm/dL Albumin/Globulin Ratio (1-2) Urine Color (Yellow) Urine Appearance (Clear) Urine pH (5.0-8.0) Ur Specific [place] (1.005-1.030) Urine Protein (Negative) Urine Glucose (UA) (Negative) Urine Ketones (Negative) Urine Occult Blood (Negative) Urine Nitrite (Negative) Urine Bilirubin (Negative) Urine Urobilinogen (0.2-1.0) Ur Leukocyte Esterase (Negative) Urine RBC (0-5) /hpf Urine WBC (0-5) /hpf Ur Squamous Epith Cells (0-5) /hpf Urine Bacteria (FEW) /hpf Urine Mucus (FEW) /hpf COVID-19 (ARMAND) Negative (NEGATIVE) Result Diagrams: 09/15/19 00:10 09/15/19 00:10 EKG INTERPRETATION EKG Date: 09/16/19 Rhythm: NSR [place]: Normal P-Wave: Enlarged (Deep negative component to the P waves in lead V1) QRS: Normal ST-T: Normal QT: Normal Comparison: NA - No Prior EKG Sepsis Event Note - Evaluation Sepsis Screening Result: No Definite Risk - Focused Exam Vital Signs: Vital Signs Temp Pulse Resp BP Pulse Ox 09/16/19 04:01 97.5 F 85 16 145/88 H 95 09/15/19 22:57 97.2 F 09/15/19 22:47 75 18 183/83 H 96 Date Exam was Performed: 09/16/19 Time Exam was Performed: 05:46 *Q Meaningful Use (ADM) - Tobacco (TOB) Core Measure 1:1 Practical Counseling Performed: Yes Practical Counseling Components Addressed: Yes Recognizing Danger Situations: Yes Benefits of Quitting Smoking: Yes Resources to Support Quitting: Yes Developing Coping Skills: Yes Quit Techniques: Yes Problem List Initiated/Reviewed/Updated: Yes Orders Last 24hrs: Active Orders 24 hr Category Date Time Status Admission Status [Patient Status] [ADT] Routine ADT 09/16/19 03:51 Active Gastrointestinal Tube Mgmt [RC] ASDIRECTED Care 09/16/19 02:35 Active Abdomen Pelvis w Cont [CT] Stat Exams 09/16/19 00:36 Taken Chest 1V Frontal [CR] Stat Exams 09/16/19 02:39 Taken Insulin Regular, Human [HumuLIN R] 100 unit Med 09/16/19 01:45 Active Sodium Chloride 0.9% [Normal Saline] 99 ml IV TITRATE Sodium Chloride 0.9% [Saline Flush] Med 09/15/19 23:28 Active 10 ml FLUSH ASDIRECTED PRN Sodium Chloride 0.9% [Saline Flush] Med 09/16/19 01:35 Active 10 ml FLUSH ONETIME PRN NG [Nasogastric Orogastric Tube Insertion] [OM.PC] Oth 09/16/19 02:35 Ordered Routine Peripheral IV Insertion Adult [OM.PC] Stat Oth 09/15/19 23:27 Ordered Medication Orders Insulin Human Regular 100 unit (/ Sodium Chloride) 100 mls @ 6 mls/hr IV TITRATE VILMA; Protocol Last Admin: 09/16/19 02:10 Dose: 6 unit/hr, 6 mls/hr Documented by: ALEISHA Cosigned by: NERI Sodium Chloride (Saline Flush) 10 ml FLUSH ASDIRECTED PRN PRN Reason: Keep Vein Open Last Admin: 09/16/19 00:28 Dose: 10 ml Documented by: ALEISHA Sodium Chloride (Saline Flush) 10 ml FLUSH ONETIME PRN PRN Reason: Keep Vein Open Last Admin: 09/16/19 01:49 Dose: 10 ml Documented by: TERESA Assessment/Plan Comment:: Assessment * 58-year-old noncompliant diabetic with small bowel obstruction -history of right colectomy secondary to pT4aN0 adenocarcinoma -NG tube placed, Dr. Ro following, CT scan showing low-grade small bowel obstruction near the ileocecal anastomosis. Patient has a mild white count likely secondary to stress and hypovolemia. * Insulin-dependent type 2 diabetes, not controlled, noncompliant -started on insulin drip in the emergency department for blood sugars greater than 300. No signs of DKA with a normal anion gap. * Uncontrolled hypertension -patient has been noncompliant with medications. Blood pressures on admission systolic greater than 180. Asymptomatic. No chest pain, shortness of breath, palpitations. * History of postoperative atrial fibrillation -currently in sinus rhythm. Has not been taking his Xarelto or metoprolol for 3 years. * COPD -continues smoking 1 pack/day. On no inhalers at home. Asymptomatic. * History of stage IA LL lung cancer s/p resection via thoracotomy -no apparent recurrence * Obstructive sleep apnea on CPAP. -Patient does have CPAP at home. * Hyperlipidemia -noncompliant Plan * Admit to ICU on insulin drip * N.p.o. * 18 Citizen [place] NG tube to low intermittent suction * Consult Dr. Ro * Hydralazine 10 mg IV every 4 hours as needed systolic blood pressure greater than 180 or diastolic blood pressure greater than 100 * Normal saline at 125 mL an hour until blood sugars are less than 200 and then switched to D5 half-normal saline with 20 of K * Hourly fingerstick blood sugars until blood sugars are stable * Dilaudid for pain and Zofran for nausea * CBC, CMP, magnesium in the morning * Add hemoglobin A1c to labs * Urine for microalbumin to creatinine ratio * Lipid panel in the morning * VTE prophylaxis with Lovenox * CODE STATUS full code * Length of stay likely 3 to 4 days unless small bowel obstruction does not resolve then will be greater than 4 days. - Mortality Measure Prognosis:: Good
[2019-09-16] MEDS ORDERED: Albuterol/Ipratropium 3.0-0.5 MG/3 ML Neb Soln NEB PRN (05:03)
[2019-09-16] MEDS ORDERED: HYDROmorphone 0.5 MG/0.5 ML Syringe IVPUSH PRN (05:03)
[2019-09-16] MEDS ORDERED: Albuterol 0.083% 2.5 MG/3 ML Neb Soln NEB PRN (05:03)
[2019-09-16] MEDS ORDERED: Ondansetron 4 MG/2 ML SDV IV PRN (05:03)
[2019-09-16] MEDS ORDERED: hydrALAZINE 20 MG/ML SDV IVPUSH PRN ×2 (05:07→08:35)
[2019-09-16 05:41] LABS: HEMOGLOBIN A1C 8.3 % (4.50-6.20)
[2019-09-16] MEDS: D5 1/2 NS w/ 20 mEq/L KCl 1,000 ML IV SCH ×2 (06:10→14:58)
[2019-09-16] MEDS ORDERED: 50% Dextrose in Water 50 ML Syringe IVPUSH PRN (07:09)
[2019-09-16] MEDS ORDERED: Insulin Lispro 100 Units/ML 3 ML Vial SUBCUT PRN (07:09)
[2019-09-16] MEDS: Metoclopramide 10 MG/2 ML SDV IVPUSH SCH ×2 (08:12→17:43)
--- NOTE | 2019-09-16 08:12 | PCM.SN.2 ---
- Free Text/Narrative Note: Patient seen and examined at beside. He stated he is feeling a little better. He is passing gas and last bowel movement was yesterday. He is currently on insulin gtt with most recent glucose level of 163. His A1C is 8.3. He currently has an NGT in. Has glucosuria and ketonuria in his urine. We will d/c insulin gtt and switch to medium intensity insulin sliding scale. Defer oral status to general surgery. Encourage patient to ambulate as part of his conservative treatment.
[2019-09-16] MEDS ORDERED: cloNIDine 0.1 MG Tab PO ONE (08:35)
[2019-09-16] MEDS ORDERED: Enoxaparin 40 MG/0.4 ML Syringe SUBCUT SCH (09:00)
--- NOTE | 2019-09-16 11:35 | PCM.SN.2 ---
- Free Text/Narrative Note: HD 1, admitted for management of uncontrolled diabetes, HTN, and small bowel obstruction. Since admission, he reports two bowel movements and passing flatus. His NG initially put out over 1L, but since getting to the ICU his NG output has only been 200 cc. His abdomen is not distended and not tender. S: feeling much better O: AF-hypertensive SBP ~180, normal rate and rhythm, SpO2 >95% on room air no distress normal work of breathing abdomen not distended, not tender A: small bowel obstruction, likely from adhesions, seems resolved at this time. P: if NG output is still minimal by afternoon and patient reports continued flatus, I recommend NG removal and advancing diet as tolerated.
[2019-09-16 12:10] VITALS: PULSE 79
[2019-09-16] MEDS: Insulin Lispro 100 Units/ML 3 ML Vial SUBCUT SCH (23:08)
[2019-09-17] MEDS ORDERED: Magnesium Sulfate/Water 2 GM in Premix Bag 1 BAG IV ONE (06:24)
[2019-09-17] MEDS ORDERED: Calcium Carbonate 600 MG Tab PO ONE (06:24)
--- NOTE | 2019-09-17 06:24 | PCM.PN ---
- General Info Date of Service: 09/17/19 Admission Dx/Problem (Free Text): Admission Diagnosis/Problem Admission Diagnosis/Problem Obstruction of colon Subjective Update: 09/17/19: No overnight or acute issues. He tolerated clear liquid diet. He is afebrile. His pressures remain elevated. His BS overall is controlled. He is low on Mg at 1.7 this AM. His lipid panel is abnormal. He wants to eat Burrito this AM. Functional Status: Reports: Pain Controlled, Tolerating Diet, Ambulating, Urinating. Denies: New Symptoms - Review of Systems General: Denies: Fever, Weakness, Fatigue, Malaise HEENT: Reports: No Symptoms Pulmonary: Denies: Shortness of Breath Cardiovascular: Denies: Chest Pain, Dyspnea on Exertion, Lightheadedness Gastrointestinal: Denies: Abdominal Pain, Nausea, Vomiting Genitourinary: Reports: No Symptoms Musculoskeletal: Reports: No Symptoms Skin: Reports: No Symptoms Neurological: Denies: Gait Disturbance Psychiatric: Denies: Depression, Anxiety, Agitation, Hallucinations - Patient Data Vitals - Most Recent: Last Vital Signs Temp 35.9 C L 09/17/19 04:00 Pulse 79 09/16/19 12:00 Resp 18 09/17/19 04:00 BP 158/77 H 09/17/19 04:00 Pulse Ox 96 09/17/19 04:00 Weight - Most Recent: 96.842 kg I&O - Last 24 Hours: Intake & Output 09/16/19 09/16/19 09/17/19 14:59 22:59 06:59 Intake Total 450 Balance 450 Lab Results Last 24 Hours: Laboratory Results - last 24 hr 09/16/19 09/16/19 09/16/19 Range/Units 05:56 07:03 12:19 WBC (4.23-9.07) K/mm3 RBC (4.63-6.08) M/mm3 Hgb (13.7-17.5) gm/dl Hct (40.1-51.0) % MCV (79.0-92.2) fl MCH (25.7-32.2) pg MCHC (32.2-35.5) g/dl RDW Std Deviation (35.1-43.9) fL Plt Count (163-337) K/mm3 MPV (9.4-12.3) fl Neut % (Auto) (34.0-67.9) % Lymph % (Auto) (21.8-53.1) % Branch % (Auto) (5.3-12.2) % Eos % (Auto) (0.8-7.0) Baso % (Auto) (0.1-1.2) % Neut # (Auto) (1.78-5.38) K/mm3 Lymph # (Auto) (1.32-3.57) K/mm3 Branch # (Auto) (0.30-0.82) K/mm3 Eos # (Auto) (0.04-0.54) K/mm3 Baso # (Auto) (0.01-0.08) K/mm3 Sodium (136-145) mEq/L Potassium (3.5-5.1) mEq/L Chloride (98-107) mEq/L Carbon Dioxide (21-32) mEq/L Anion Gap (5-15) BUN (7-18) mg/dL Creatinine (0.7-1.3) mg/dL Est Cr Clr Drug Dosing mL/min Estimated GFR (MDRD) (>60) mL/min BUN/Creatinine Ratio (14-18) Glucose (74-106) mg/dL POC Glucose 170 H 163 H 195 H (70-105) mg/dL Calcium (8.5-10.1) mg/dL Magnesium (1.8-2.4) mg/dl Total Bilirubin (0.2-1.0) mg/dL AST (15-37) U/L ALT (16-63) U/L Alkaline Phosphatase (46-116) U/L Total Protein (6.4-8.2) g/dl Albumin (3.4-5.0) g/dl Globulin gm/dL Albumin/Globulin Ratio (1-2) Triglycerides (<150) mg/dL Cholesterol (<200) mg/dL LDL Cholesterol Direct (<100) mg/dL HDL Cholesterol (40-59) mg/dL 09/16/19 09/16/19 09/17/19 Range/Units 17:34 22:57 04:29 WBC 11.33 H (4.23-9.07) K/mm3 RBC 4.72 (4.63-6.08) M/mm3 Hgb 14.9 D (13.7-17.5) gm/dl Hct 42.9 (40.1-51.0) % MCV 90.9 (79.0-92.2) fl MCH 31.6 (25.7-32.2) pg MCHC 34.7 (32.2-35.5) g/dl RDW Std Deviation 41.9 (35.1-43.9) fL Plt Count 195 (163-337) K/mm3 MPV 9.4 (9.4-12.3) fl Neut % (Auto) 73.3 H (34.0-67.9) % Lymph % (Auto) 19.1 L (21.8-53.1) % Branch % (Auto) 5.3 (5.3-12.2) % Eos % (Auto) 1.9 (0.8-7.0) Baso % (Auto) 0.2 (0.1-1.2) % Neut # (Auto) 8.31 H (1.78-5.38) K/mm3 Lymph # (Auto) 2.16 (1.32-3.57) K/mm3 Branch # (Auto) 0.60 (0.30-0.82) K/mm3 Eos # (Auto) 0.22 (0.04-0.54) K/mm3 Baso # (Auto) 0.02 (0.01-0.08) K/mm3 Sodium (136-145) mEq/L Potassium (3.5-5.1) mEq/L Chloride (98-107) mEq/L Carbon Dioxide (21-32) mEq/L Anion Gap (5-15) BUN (7-18) mg/dL Creatinine (0.7-1.3) mg/dL Est Cr Clr Drug Dosing mL/min Estimated GFR (MDRD) (>60) mL/min BUN/Creatinine Ratio (14-18) Glucose (74-106) mg/dL POC Glucose 148 H 132 H (70-105) mg/dL Calcium (8.5-10.1) mg/dL Magnesium (1.8-2.4) mg/dl Total Bilirubin (0.2-1.0) mg/dL AST (15-37) U/L ALT (16-63) U/L Alkaline Phosphatase (46-116) U/L Total Protein (6.4-8.2) g/dl Albumin (3.4-5.0) g/dl Globulin gm/dL Albumin/Globulin Ratio (1-2) Triglycerides (<150) mg/dL Cholesterol (<200) mg/dL LDL Cholesterol Direct (<100) mg/dL HDL Cholesterol (40-59) mg/dL 09/17/19 Range/Units 04:29 WBC (4.23-9.07) K/mm3 RBC (4.63-6.08) M/mm3 Hgb (13.7-17.5) gm/dl Hct (40.1-51.0) % MCV (79.0-92.2) fl MCH (25.7-32.2) pg MCHC (32.2-35.5) g/dl RDW Std Deviation (35.1-43.9) fL Plt Count (163-337) K/mm3 MPV (9.4-12.3) fl Neut % (Auto) (34.0-67.9) % Lymph % (Auto) (21.8-53.1) % Branch % (Auto) (5.3-12.2) % Eos % (Auto) (0.8-7.0) Baso % (Auto) (0.1-1.2) % Neut # (Auto) (1.78-5.38) K/mm3 Lymph # (Auto) (1.32-3.57) K/mm3 Branch # (Auto) (0.30-0.82) K/mm3 Eos # (Auto) (0.04-0.54) K/mm3 Baso # (Auto) (0.01-0.08) K/mm3 Sodium 139 (136-145) mEq/L Potassium 3.8 (3.5-5.1) mEq/L Chloride 102 (98-107) mEq/L Carbon Dioxide 33 H (21-32) mEq/L Anion Gap 7.8 (5-15) BUN 12 (7-18) mg/dL Creatinine 1.0 (0.7-1.3) mg/dL Est Cr Clr Drug Dosing 80.52 mL/min Estimated GFR (MDRD) > 60 (>60) mL/min BUN/Creatinine Ratio 12.0 L (14-18) Glucose 135 H (74-106) mg/dL POC Glucose (70-105) mg/dL Calcium 7.9 L (8.5-10.1) mg/dL Magnesium 1.7 L (1.8-2.4) mg/dl Total Bilirubin 0.4 (0.2-1.0) mg/dL AST 14 L (15-37) U/L ALT 18 (16-63) U/L Alkaline Phosphatase 70 (46-116) U/L Total Protein 5.8 L (6.4-8.2) g/dl Albumin 2.1 L (3.4-5.0) g/dl Globulin 3.7 gm/dL Albumin/Globulin Ratio 0.6 L (1-2) Triglycerides 238 H (<150) mg/dL Cholesterol 179 (<200) mg/dL LDL Cholesterol Direct 115 H* (<100) mg/dL HDL Cholesterol 30.0 L (40-59) mg/dL Med Orders - Current: Current Medications Albuterol (Proventil Neb Soln) 2.5 mg NEB Q2H PRN PRN Reason: Shortness Of Breath/wheezing Albuterol/Ipratropium (Duoneb 3.0-0.5 Mg/3 Ml) 3 ml NEB Q4H PRN PRN Reason: Shortness Of Breath/wheezing Dextrose/Water (Dextrose 50% In Water) 50 ml IVPUSH ASDIRECTED PRN PRN Reason: Hypoglycemia Enoxaparin Sodium (Lovenox) 40 mg SUBCUT DAILY [facility] Last Admin: 09/16/19 08:12 Dose: 40 mg Documented by: Hydralazine HCl (Apresoline) 20 mg IVPUSH Q4H PRN PRN Reason: Hypertension Hydromorphone HCl (Dilaudid) 0.5 mg IVPUSH Q2H PRN PRN Reason: Pain (severe 7-10) Insulin Human Lispro (Humalog) 0 unit SUBCUT QIDACANDBED [facility]; Protocol Last Admin: 09/16/19 23:08 Dose: Not Given Documented by: Ondansetron HCl (Zofran) 4 mg IV Q4H PRN PRN Reason: Nausea/Vomiting Sodium Chloride (Saline Flush) 10 ml FLUSH ASDIRECTED PRN PRN Reason: Keep Vein Open Last Admin: 09/16/19 00:28 Dose: 10 ml Documented by: Sodium Chloride (Saline Flush) 10 ml FLUSH ONETIME PRN PRN Reason: Keep Vein Open Last Admin: 09/16/19 01:49 Dose: 10 ml Documented by: Discontinued Medications Clonidine HCl (Catapres) 0.2 mg PO ONETIME ONE Stop: 09/16/19 08:36 Last Admin: 09/16/19 09:45 Dose: 0.2 mg Documented by: Diatrizoate Meglum/Diatrizoate Sod (Gastrografin 37%) 120 ml PO ONETIME ONE Stop: 09/16/19 01:50 Last Admin: 09/16/19 01:51 Dose: 120 ml Documented by: Hydralazine HCl (Apresoline) 10 mg IVPUSH Q4H PRN PRN Reason: Hypertension Hydromorphone HCl (Dilaudid) 0.5 mg IVPUSH ONETIME ONE Stop: 09/16/19 00:13 Last Admin: 09/16/19 00:28 Dose: 0.5 mg Documented by: Hydromorphone HCl (Dilaudid) 0.5 mg IVPUSH ONETIME ONE Stop: 09/16/19 02:54 Last Admin: 09/16/19 03:00 Dose: 0.5 mg Documented by: Sodium Chloride (Normal Saline) 1,000 mls @ 150 mls/hr IV ASDIRECTED [facility] Last Admin: 09/16/19 00:38 Dose: 150 mls/hr Documented by: Lactated Ringer's (Ringers, Lactated) 1,000 mls @ 999 mls/hr IV .BOLUS ONE Stop: 09/16/19 02:39 Last Admin: 09/16/19 02:10 Dose: 999 mls/hr Documented by: Insulin Human Regular 100 unit (/ Sodium Chloride) 100 mls @ 6 mls/hr IV TIT RATE VILMA; Protocol Last Titration: 09/16/19 06:00 Dose: 3 unit/hr, 3 mls/hr Documented by: Sodium Chloride (Normal Saline) 1,000 mls @ 125 mls/hr IV ASDIRECTED VILMA Last Admin: 09/16/19 05:24 Dose: 125 mls/hr Documented by: Potassium Chloride/Dextrose/Sod Cl (D5 1/2 Ns W/ 20 Meq/L Kcl) 1,000 mls @ 125 mls/hr IV ASDIRECTED VILMA Last Admin: 09/16/19 14:58 Dose: 125 mls/hr Documented by: Insulin Human Lispro (Humalog) 0 unit SUBCUT Q6H PRN; Protocol PRN Reason: Hyperglycemia Last Admin: 09/16/19 12:23 Dose: 2 units Documented by: Iopamidol (Isovue-300 (61%)) 100 ml IVPUSH ONETIME ONE Stop: 09/16/19 01:36 Last Admin: 09/16/19 01:49 Dose: 100 ml Documented by: Lidocaine HCl (Xylocaine 2% Jelly) Confirm Administered Dose 10 ml .ROUTE .STK- MED ONE Stop: 09/16/19 02:51 Last Admin: 09/16/19 03:49 Dose: Not Given Documented by: Lidocaine HCl (Xylocaine 2% Jelly) 10 ml MUCMEM ONETIME ONE Stop: 09/16/19 03:07 Last Admin: 09/16/19 03:48 Dose: 10 ml Documented by: Metoclopramide HCl (Reglan) 5 mg IVPUSH Q6H [facility] Stop: 09/17/19 02:01 Last Admin: 09/16/19 17:43 Dose: Not Given Documented by: Ondansetron HCl (Zofran) 4 mg IVPUSH ONETIME ONE Stop: 09/16/19 00:13 Last Admin: 09/16/19 00:28 Dose: 4 mg Documented by: - Exam General: Alert, Oriented, Cooperative, No Acute Distress, Other (Obese) HEENT: Pupils Equal, Pupils Reactive, EOMI, Mucous Membr. Moist/[place] Neck: Supple Lungs: Clear to Auscultation, Normal Respiratory Effort Cardiovascular: Regular Rate, Regular Rhythm GI/Abdominal Exam: Normal Bowel Sounds, Soft, Non-Tender, No Organomegaly, No Distention, No Abnormal Bruit, Other (mid-line scar) (Male) Exam: Deferred Back Exam: Normal Inspection, Decreased Range of Motion Extremities: Normal Inspection, Normal Range of Motion, Non-Tender, No Pedal Edema, Normal Capillary Refill Peripheral Pulses: 2+: Dorsalis Pedis (L), Dorsalis Pedis (R) Skin: Warm, Dry, Intact Neurological: No New Focal Deficit Psy/Mental Status: Alert, Normal Affect, Normal Mood Sepsis Event Note - Evaluation Sepsis Screening Result: No Definite Risk - Focused Exam Vital Signs: Vital Signs Temp Resp BP Pulse Ox 09/17/19 04:00 35.9 C L 18 158/77 H 96 09/17/19 00:00 36.4 C 18 152/66 H 98 09/16/19 20:00 36.2 C 18 146/56 H 98 Date Exam was Performed: 09/17/19 Time Exam was Performed: 18:35 - Problem List Review Problem List Initiated/Reviewed/Updated: Yes - My Orders Last 24 Hours: My Active Orders 09/16/19 07:09 Dextrose 50% in Water 50 ml IVPUSH ASDIRECTED PRN 09/16/19 08:35 hydrALAZINE [Apresoline] 20 mg IVPUSH Q4H PRN 09/16/19 15:17 Blood Glucose Check, Bedside [RC] QIDACANDBED 09/16/19 Dinner Clear Liquid Diet [DIET] 09/16/19 22:00 Insulin Lispro [HumaLOG] See Protocol SUBCUT QIDACANDBED - Plan Plan:: Assessment * 58-year-old noncompliant diabetic with small bowel obstruction -history of right colectomy secondary to [id number] adenocarcinoma -NG tube placed, Dr. Palm on following, CT scan showing low-grade small bowel obstruction near the ileocecal anastomosis. Patient has a mild white count likely secondary to stress and hypovolemia. Improving. He tolerated clear liquid diet. Will advance diet as tolerated per Dr. Ro. * Insulin-dependent type 2 diabetes, not controlled, noncompliant -started on insulin drip in the emergency department for blood sugars greater than 300. No signs of DKA with a normal anion gap. BS overall improved. Will resume home regimen once he started eating more carbs. * Uncontrolled hypertension -patient has been noncompliant with medications. Blood pressures on admission systolic greater than 180. Asymptomatic. No chest pain, shortness of breath, palpitations. Resume home dose lisinopril 40 mg po daily and Cardizem CD 180 mg po daily. * History of postoperative atrial fibrillation -currently in sinus rhythm. Has not been taking his Xarelto or metoprolol for 3 years. Discontinue lovenox and resume home dose Xarelto. * COPD -continues smoking 1 pack/day. On no inhalers at home. Asymptomatic. Continue home inhaler Stiolto * History of stage IA LL lung cancer s/p resection via thoracotomy -no apparent recurrence * Obstructive sleep apnea on CPAP. -Patient does have CPAP at home. Used it last night. * Hyperlipidemia -noncompliant. Lipid panel abnormal. Resume home dose statin. * Proteinuria. 3+ protein on urine. This likely due to diabetic nephropathy. He is on lisinopril but not sure if he is compliant. Resume home med. * Glucosuria. 2+ glucose on urine. Has underlying diabetes with A1C of 8.4. Plan * Continue with medical management * Advance diet as tolerated * Dr. Ro following * Hydralazine 10 mg IV every 4 hours as needed systolic blood pressure greater than 180 or diastolic blood pressure greater than 100 * Discontinue IV fluids * Daily labs * VTE prophylaxis with xarelto * CODE STATUS full code * Possible discharge in AM if able to tolerate ADA solid meal.
[2019-09-17] MEDS: Insulin Lispro 100 Units/ML 3 ML Vial SUBCUT SCH ×3 (07:35→16:41)
[2019-09-17] MEDS ORDERED: Insulin Glarg,Human.Rec.Analog 100 Unit/ML SUBCUT SCH (09:00)
[2019-09-17] MEDS ORDERED: Aspirin 81 MG Tab.EC PO SCH (09:00)
[2019-09-17] MEDS ORDERED: Diltiazem 180 MG Cap.CD PO SCH (09:00)
[2019-09-17] MEDS ORDERED: Rivaroxaban 10 MG Tab PO SCH (09:00)
[2019-09-17] MEDS ORDERED: Lisinopril 20 MG Tab PO SCH (09:00)
[2019-09-17 15:13] VITALS: BP 141/61
--- NOTE | 2019-09-17 18:45 | PCM.DCSUM1 ---
Discharge Summary - Hospital Course Brief History: 58-year-old noncompliant diabetic with hx/o small bowel obstruction and history of right colectomy secondary to [id number] adenocarcinoma who presented to the hospital with abdominal pain and was admitted for partial SBO. Diagnosis: Stroke: No Modified Shiela Scale: No Symptoms at All Modified [place] Scale Score: 0 - Discharge Data Discharge Date: 09/17/19 Discharge Disposition: Home, Self-Care 01 Condition: Good - Referral to Home Health Primary Care Physician: Ivone Ovalles NP - Patient Summary/Data Operative Procedure(s) Performed: None Complications: None Consults: Consultations 09/16/19 05:03 Consult to Physician [CONS] Routine Labs Pending at D/C: None Recommended Follow-up Testing/Procedures: None Planned Operative Procedure(s) after DC: None Hospital Course: Patient was primarily admitted for partial small bowel obstruction due to adhesions from previous intra-abdominal surgery. On this admission, he mainly received medical management and he slowly improved on this regimen. Our medical authorization specialist surgeon, Dr. Ro was consulted but offered no additional testing or management. His hospital course was mildly complicated by hyperglycemia but we were able to improve his overall glucose level in the 120s prior to discharge. Patient tolerated his diet until he was able to take solid meal. He was advised to follow up with his PCP after discharge. Prior to his departure, we stressed with him the importance of medical and dietary compliance. - Patient Instructions Diet: Heart Healthy Diet, Diabetic Diet Activity: As Tolerated Driving: May Drive Today Showering/Bathing: May Shower Notify Provider of: Fever, Increased Pain, Swelling and Redness, Nausea and/or Vomiting - Discharge Plan *PRESCRIPTION DRUG MONITORING PROGRAM REVIEWED*: Not Applicable *COPY OF PRESCRIPTION DRUG MONITORING REPORT IN PATIENT ARMEN: Not Applicable Home Medications: Home Meds Lisinopril 40 mg PO DAILY 01/14/16 [History] Simvastatin 10 mg PO BEDTIME 01/14/16 [History] metFORMIN HCl [Metformin HCl] 1,000 mg PO BID 01/14/16 [History] Aspirin 81 mg PO DAILY 10/29/16 [History] Diltiazem [Cardizem CD] 180 mg PO DAILY 10/29/16 [History] Insulin Aspart [NovoLOG] 1 dose SQ TID PRN 10/29/16 [History] Tiotropium Br/Olodaterol HCl [Stiolto Respimat Inhal [place]] 2 puff INH DAILY 12/15/16 [History] Rivaroxaban [Xarelto] 20 mg PO DAILY 05/25/18 [History] Insulin Degludec [Tresiba] 50 units SQ DAILY 09/16/19 [History] Patient Handouts: Bowel Obstruction, [id number], Blood Glucose Monitoring, Adult Referrals: Ivone Ovalles NP [Primary Care Provider] - Az Ro MD [Physician] - Alcon Sanchez III, MD [Physician] - - Discharge Summary/Plan Comment DC Time >30 min.: No Discharge Summary/Plan Comment: Discharge to Home - General Info Date of Service: 09/17/19 Admission Dx/Problem (Free Text: Admission Diagnosis/Problem Admission Diagnosis/Problem Obstruction of colon Subjective Update: 09/17/19: No overnight or acute issues. He tolerated clear liquid diet. He is afebrile. His pressures remain elevated. His BS overall is controlled. He is low on Mg at 1.7 this AM. His lipid panel is abnormal. He wants to eat Burrito this AM. Functional Status: Reports: Pain Controlled, Tolerating Diet, Ambulating, Urinating - Review of Systems General: Denies: Fever, Chills HEENT: Reports: No Symptoms Pulmonary: Denies: Shortness of Breath Cardiovascular: Denies: Chest Pain, Dyspnea on Exertion, Lightheadedness Gastrointestinal: Reports: Flatus. Denies: Abdominal Pain, Constipation, Decreased Appetite, Nausea, Vomiting Genitourinary: Reports: No Symptoms Musculoskeletal: Reports: No Symptoms Skin: Reports: No Symptoms Neurological: Denies: Confusion, Dizziness, Numbness, Seizure, Syncope, Tingling, Gait Disturbance Psychiatric: Denies: Depression, Anxiety, Agitation, Hallucinations - Patient Data Vitals - Most Recent: Last Vital Signs Temp 36.4 C 09/17/19 15:12 Pulse 79 09/16/19 12:00 Resp 19 09/17/19 15:12 BP 141/61 H 09/17/19 15:12 Pulse Ox 97 09/17/19 15:12 Weight - Most Recent: 96.842 kg I&O - Last 24 hours: Intake & Output 09/17/19 09/17/19 09/17/19 06:59 14:59 22:59 Intake Total 120 50 Balance 120 50 Lab Results - Last 24 hrs: Laboratory Results - last 24 hr 09/16/19 09/17/19 09/17/19 Range/Units 22:57 04:29 04:29 WBC 11.33 H (4.23-9.07) K/mm3 RBC 4.72 (4.63-6.08) M/mm3 Hgb 14.9 D (13.7-17.5) gm/dl Hct 42.9 (40.1-51.0) % MCV 90.9 (79.0-92.2) fl MCH 31.6 (25.7-32.2) pg MCHC 34.7 (32.2-35.5) g/dl RDW Std Deviation 41.9 (35.1-43.9) fL Plt Count 195 (163-337) K/mm3 MPV 9.4 (9.4-12.3) fl Neut % (Auto) 73.3 H (34.0-67.9) % Lymph % (Auto) 19.1 L (21.8-53.1) % [place] % (Auto) 5.3 (5.3-12.2) % Eos % (Auto) 1.9 (0.8-7.0) Baso % (Auto) 0.2 (0.1-1.2) % Neut # (Auto) 8.31 H (1.78-5.38) K/mm3 Lymph # (Auto) 2.16 (1.32-3.57) K/mm3 [place] # (Auto) 0.60 (0.30-0.82) K/mm3 Eos # (Auto) 0.22 (0.04-0.54) K/mm3 Baso # (Auto) 0.02 (0.01-0.08) K/mm3 Sodium 139 (136-145) mEq/L Potassium 3.8 (3.5-5.1) mEq/L Chloride 102 (98-107) mEq/L Carbon Dioxide 33 H (21-32) mEq/L Anion Gap 7.8 (5-15) BUN 12 (7-18) mg/dL Creatinine 1.0 (0.7-1.3) mg/dL Est Cr Clr Drug Dosing 80.52 mL/min Estimated GFR (MDRD) > 60 (>60) mL/min BUN/Creatinine Ratio 12.0 L (14-18) Glucose 135 H (74-106) mg/dL POC Glucose 132 H (70-105) mg/dL Calcium 7.9 L (8.5-10.1) mg/dL Magnesium 1.7 L (1.8-2.4) mg/dl Total Bilirubin 0.4 (0.2-1.0) mg/dL AST 14 L (15-37) U/L ALT 18 (16-63) U/L Alkaline Phosphatase 70 (46-116) U/L Total Protein 5.8 L (6.4-8.2) g/dl Albumin 2.1 L (3.4-5.0) g/dl Globulin 3.7 gm/dL Albumin/Globulin Ratio 0.6 L (1-2) Triglycerides 238 H (<150) mg/dL Cholesterol 179 (<200) mg/dL LDL Cholesterol Direct 115 H* (<100) mg/dL HDL Cholesterol 30.0 L (40-59) mg/dL 09/17/19 09/17/19 09/17/19 Range/Units 06:20 10:43 16:40 WBC (4.23-9.07) K/mm3 RBC (4.63-6.08) M/mm3 Hgb (13.7-17.5) gm/dl Hct (40.1-51.0) % MCV (79.0-92.2) fl MCH (25.7-32.2) pg MCHC (32.2-35.5) g/dl RDW Std Deviation (35.1-43.9) fL Plt Count (163-337) K/mm3 MPV (9.4-12.3) fl Neut % (Auto) (34.0-67.9) % Lymph % (Auto) (21.8-53.1) % [place] % (Auto) (5.3-12.2) % Eos % (Auto) (0.8-7.0) Baso % (Auto) (0.1-1.2) % Neut # (Auto) (1.78-5.38) K/mm3 Lymph # (Auto) (1.32-3.57) K/mm3 [place] # (Auto) (0.30-0.82) K/mm3 Eos # (Auto) (0.04-0.54) K/mm3 Baso # (Auto) (0.01-0.08) K/mm3 Sodium (136-145) mEq/L Potassium (3.5-5.1) mEq/L Chloride (98-107) mEq/L Carbon Dioxide (21-32) mEq/L Anion Gap (5-15) BUN (7-18) mg/dL Creatinine (0.7-1.3) mg/dL Est Cr Clr Drug Dosing mL/min Estimated GFR (MDRD) (>60) mL/min BUN/Creatinine Ratio (14-18) Glucose (74-106) mg/dL POC Glucose 123 H 180 H 340 H (70-105) mg/dL Calcium (8.5-10.1) mg/dL Magnesium (1.8-2.4) mg/dl Total Bilirubin (0.2-1.0) mg/dL AST (15-37) U/L ALT (16-63) U/L Alkaline Phosphatase (46-116) U/L Total Protein (6.4-8.2) g/dl Albumin (3.4-5.0) g/dl Globulin gm/dL Albumin/Globulin Ratio (1-2) Triglycerides (<150) mg/dL Cholesterol (<200) mg/dL LDL Cholesterol Direct (<100) mg/dL HDL Cholesterol (40-59) mg/dL Med Orders - Current: Current Medications Albuterol (Proventil Neb Soln) 2.5 mg NEB Q2H PRN PRN Reason: Shortness Of Breath/wheezing Albuterol/Ipratropium (Duoneb 3.0-0.5 Mg/3 Ml) 3 ml NEB Q4H PRN PRN Reason: Shortness Of Breath/wheezing Aspirin (Halfprin) 81 mg PO DAILY [facility] Last Admin: 09/17/19 08:07 Dose: 81 mg Documented by: Dextrose/Water (Dextrose 50% In Water) 50 ml IVPUSH ASDIRECTED PRN PRN Reason: Hypoglycemia Diltiazem HCl (Cardizem Cd) 180 mg PO DAILY [facility] Last Admin: 09/17/19 08:07 Dose: 180 mg Documented by: Hydralazine HCl (Apresoline) 20 mg IVPUSH Q4H PRN PRN Reason: Hypertension Hydromorphone HCl (Dilaudid) 0.5 mg IVPUSH Q2H PRN PRN Reason: Pain (severe 7-10) Insulin Glargine (Lantus) 50 unit SUBCUT DAILY [facility] Last Admin: 09/17/19 08:08 Dose: Not Given Documented by: Insulin Human Lispro (Humalog) 0 unit SUBCUT QIDACANDBED [facility]; Protocol Last Admin: 09/17/19 16:41 Dose: 8 units Documented by: Lisinopril (Prinivil) 40 mg PO DAILY [facility] Last Admin: 09/17/19 08:05 Dose: 40 mg Documented by: Non-Formulary Medication (Tiotropium Br/Olodaterol Hcl [Stiolto Respimat Inhal [place]]) 2 puff INH DAILY [facility] Ondansetron HCl (Zofran) 4 mg IV Q4H PRN PRN Reason: Nausea/Vomiting Rivaroxaban (Xarelto) 20 mg PO DAILY [facility] Last Admin: 09/17/19 08:05 Dose: 20 mg Documented by: Simvastatin (Zocor) 10 mg PO BEDTIME [facility] Sodium Chloride (Saline Flush) 10 ml FLUSH ASDIRECTED PRN PRN Reason: Keep Vein Open Last Admin: 09/16/19 00:28 Dose: 10 ml Documented by: Sodium Chloride (Saline Flush) 10 ml FLUSH ONETIME PRN PRN Reason: Keep Vein Open Last Admin: 09/16/19 01:49 Dose: 10 ml Documented by: Discontinued Medications Calcium Carbonate/Glycine (Calcium Carbonate) 1,200 mg PO ONETIME ONE Stop: 09/17/19 06:25 Last Admin: 09/17/19 08:05 Dose: 1,200 mg Documented by: Clonidine HCl (Catapres) 0.2 mg PO ONETIME ONE Stop: 09/16/19 08:36 Last Admin: 09/16/19 09:45 Dose: 0.2 mg Documented by: Diatrizoate Meglum/Diatrizoate Sod (Gastrografin 37%) 120 ml PO ONETIME ONE Stop: 09/16/19 01:50 Last Admin: 09/16/19 01:51 Dose: 120 ml Documented by: Enoxaparin Sodium (Lovenox) 40 mg SUBCUT DAILY [facility] Last Admin: 09/16/19 08:12 Dose: 40 mg Documented by: Hydralazine HCl (Apresoline) 10 mg IVPUSH Q4H PRN PRN Reason: Hypertension Hydromorphone HCl (Dilaudid) 0.5 mg IVPUSH ONETIME ONE Stop: 09/16/19 00:13 Last Admin: 09/16/19 00:28 Dose: 0.5 mg Documented by: Hydromorphone HCl (Dilaudid) 0.5 mg IVPUSH ONETIME ONE Stop: 09/16/19 02:54 Last Admin: 09/16/19 03:00 Dose: 0.5 mg Documented by: Sodium Chloride (Normal Saline) 1,000 mls @ 150 mls/hr IV ASDIRECTED [facility] Last Admin: 09/16/19 00:38 Dose: 150 mls/hr Documented by: Lactated Ringer's (Ringers, Lactated) 1,000 mls @ 999 mls/hr IV .BOLUS ONE Stop: 09/16/19 02:39 Last Admin: 09/16/19 02:10 Dose: 999 mls/hr Documented by: Insulin Human Regular 100 unit (/ Sodium Chloride) 100 mls @ 6 mls/hr IV TITRATE [facility]; Protocol Last Titration: 09/16/19 06:00 Dose: 3 unit/hr, 3 mls/hr Documented by: Sodium Chloride (Normal Saline) 1,000 mls @ 125 mls/hr IV ASDIRECTED [facility] Last Admin: 09/16/19 05:24 Dose: 125 mls/hr Documented by: Potassium Chloride/Dextrose/Sod Cl (D5 1/2 Ns W/ 20 Meq/L Kcl) 1,000 mls @ 125 mls/hr IV ASDIRECTED [facility] Last Admin: 09/16/19 14:58 Dose: 125 mls/hr Documented by: Magnesium Sulfate 2 gm/ Premix 50 mls @ 25 mls/hr IV ONETIME ONE Stop: 09/17/19 08:23 Last Admin: 09/17/19 08:05 Dose: 25 mls/hr Documented by: Insulin Human Lispro (Humalog) 0 unit SUBCUT Q6H PRN; Protocol PRN Reason: Hyperglycemia Last Admin: 09/16/19 12:23 Dose: 2 units Documented by: Iopamidol (Isovue-300 (61%)) 100 ml IVPUSH ONETIME ONE Stop: 09/16/19 01:36 Last Admin: 09/16/19 01:49 Dose: 100 ml Documented by: Lidocaine HCl (Xylocaine 2% Jelly) Confirm Administered Dose 10 ml .ROUTE .STK- MED ONE Stop: 09/16/19 02:51 Last Admin: 09/16/19 03:49 Dose: Not Given Documented by: Lidocaine HCl (Xylocaine 2% Jelly) 10 ml MUCMEM ONETIME ONE Stop: 09/16/19 03:07 Last Admin: 09/16/19 03:48 Dose: 10 ml Documented by: Metoclopramide HCl (Reglan) 5 mg IVPUSH Q6H [place]IL[place] Stop: 09/17/19 02:01 Last Admin: 09/16/19 17:43 Dose: Not Given Documented by: Ondansetron HCl (Zofran) 4 mg IVPUSH ONETIME ONE Stop: 09/16/19 00:13 Last Admin: 09/16/19 00:28 Dose: 4 mg Documented by: - Exam General: Reports: Alert, Oriented, Cooperative, No Acute Distress, Other (Obese) HEENT: Reports: Pupils Equal, Pupils Reactive, EOMI, Mucous Membr. Moist/[place] Neck: Reports: Supple Lungs: Reports: Clear to Auscultation, Normal Respiratory Effort Cardiovascular: Reports: Regular Rate, Regular Rhythm GI/Abdominal Exam: Normal Bowel Sounds, Soft, Non-Tender, No Organomegaly, No Distention, No Abnormal Bruit, Other (midline abdominal scar) (Male) Exam: Deferred Rectal (Males) Exam: Deferred Back Exam: Reports: Normal Inspection, Decreased Range of Motion Extremities: Normal Inspection, Normal Range of Motion, Non-Tender, No Pedal Edema, Normal Capillary Refill Skin: Reports: Warm, Dry, Intact Neurological: Reports: No New Focal Deficit Psy/Mental Status: Reports: Alert, Normal Affect, Normal Mood
[2019-09-17] MEDS ORDERED: cloNIDine 0.1 MG Tab PO ONE (18:51)
[2019-09-17] MEDS ORDERED: Simvastatin 10 MG Tab PO SCH (21:00)
--- NOTE | 2019-09-18 05:58 | CR ---
Chest: Portable supine upright view of the abdomen was obtained. Comparison: Prior chest x-ray of 12/16/16. Blunting of the right lateral costophrenic angle is seen which is noted on prior chest x-ray. Slight parenchymal density is also seen within the right lung base which is also seen on prior study. Minimal scarring within the left base is seen. Lungs show no definite acute appearing parenchymal change. Heart size is normal. Upper mediastinum is normal. Left-sided infusion port is seen. Nasogastric tube is noted with tip lying in the area of the stomach. Impression: 1. Chronic findings within the chest as described above. 2. Tip of nasogastric tube within the stomach. 3. Nothing acute is otherwise seen. Diagnostic code #3 This report was dictated in MDT
--- NOTE | 2019-09-18 06:48 | CT ---
CT abdomen and pelvis Technique: Multiple axial sections were obtained from above the dome of the diaphragm inferiorly through the pubic symphysis. Intravenous contrast and oral contrast has been given. Delayed images were also obtained through the bladder. Comparison: Prior CT abdomen and pelvis study of 09/19/18. Slight scarring noted within the right lung base. Nothing acute is seen. Liver contains no focal parenchymal abnormality. Spleen appears within normal limits. Adrenal glands show no nodule. Pancreas shows no discrete abnormality. Kidneys show symmetric contrast enhancement without hydronephrosis or mass. Aorta shows atherosclerotic calcification which continues into the iliac vessels. No aneurysm is seen. Scattered retroperitoneal lymph nodes are seen believed to be within normal limits. No pelvic mass or adenopathy is seen. Appendix is not visualized. Small fat-containing anterior abdominal wall hernia is seen superior to the umbilicus and to the right of midline. This contains fat. Fat-containing umbilical hernia is also noted increased density is seen in this area presumably due to previous surgery. Minimal free fluid seen within the pelvis. Dilated small bowel loops are noted with transition point appearing to be within the right upper abdomen. No etiology is seen for this finding and obstruction is most likely due to adhesions. Bone window settings were reviewed which shows disc space narrowing at L5-S1. Other scattered degenerative changes noted. No acute osseous finding is seen. Delayed images shows contrast within the distal ureters as well as within the bladder. Impression: 1. Dilated small bowel loops compatible with distal small bowel obstruction. Transition point appears within the upper right abdomen and most likely is from an adhesion. 2. Other nonacute findings as noted above. Diagnostic code #3 This report was dictated in MDT I agree with preliminary report from [facility], finalized on , 3:19 AM Central Daylight Time
== END 2019-09-17 19:19 | disposition home or self-care (01) | DRG 390 ==
LOC: JD.ED 22:38 → JD.ICU 09-16 03:57
PROVIDERS: ADMIT Family Medicine; ATTEND Family Medicine
DX: K56.609 Unspecified intestinal obstruction, unspecified as to partial versus complete obstruction (principal); K56.51 Intestinal adhesions [bands], with partial obstruction; H54.7 Unspecified visual loss; E11.65 Type 2 diabetes mellitus with hyperglycemia; Z11.59 Encounter for screening for other viral diseases; I48.91 Unspecified atrial fibrillation; I71.4 Abdominal aortic aneurysm, without rupture; E78.00 Pure hypercholesterolemia, unspecified; G47.30 Sleep apnea, unspecified; M19.90 Unspecified osteoarthritis, unspecified site; I10 Essential (primary) hypertension; J44.9 Chronic obstructive pulmonary disease, unspecified; Z85.118 Personal history of other malignant neoplasm of bronchus and lung; Z90.49 Acquired absence of other specified parts of digestive tract; Z90.2 Acquired absence of lung [part of]; F17.200 Nicotine dependence, unspecified, uncomplicated; E66.9 Obesity, unspecified; Z79.01 Long term (current) use of anticoagulants; F17.210 Nicotine dependence, cigarettes, uncomplicated; E86.1 Hypovolemia; F43.9 Reaction to severe stress, unspecified; G47.33 Obstructive sleep apnea (adult) (pediatric); E78.5 Hyperlipidemia, unspecified; Z91.14 Patient's other noncompliance with medication regimen; Z85.038 Personal history of other malignant neoplasm of large intestine; Z88.8 Allergy status to other drugs, medicaments and biological substances; Z79.82 Long term (current) use of aspirin; Z79.4 Long term (current) use of insulin; Z79.899 Other long term (current) drug therapy; Z68.31 Body mass index [BMI] 31.0-31.9, adult; Z03.818 Encounter for observation for suspected exposure to other biological agents ruled out
CPT/HCPCS: 36415; 43752; 71045; 74177; 80053; 81001; 82962; 83036; 85025; 96361; 96374; 96375; 96376; 99285; J1170 ×2; J1815 ×2; J2405; J7030; J7050; J7120; Q9963; Q9967; U0002; 80061; 83735; 93005; 99222; 99238; A9270-GY; J1650; J2765; J3475; J3480

== ENCOUNTER 2019-12-28 12:31 | Emergency (ER) | payer MEDICARE, BC ==
[2019-12-28] MEDS ORDERED: Sodium Chloride 0.9% 10 ML Syringe FLUSH PRN (13:18)
[2019-12-28] MEDS ORDERED: Albuterol/Ipratropium 3.0-0.5 MG/3 ML Neb Soln NEB ONE (13:19)
--- NOTE | 2019-12-28 13:26 | EDM.PDOC ---
ED HPI GENERAL MEDICAL PROBLEM - General Chief Complaint: Respiratory Problem Stated Complaint: SOB, HEADACHE,CHILLS,WEAK Time Seen by Provider: 12/28/19 12:44 Source of Information: Reports: Patient, Old Records, RN Notes Reviewed History Limitations: Reports: No Limitations - History of Present Illness INITIAL COMMENTS - FREE TEXT/NARRATIVE: Patient is a 59-year-old male who presents to the ED for the evaluation of his acute shortness of breath, chills, headache and weakness. Patient notes that he has a history of COPD, and lung cancer that he states got taken out. He notes this morning he woke up with acute shortness of breath, headache, chills, just feels generally weak. He states he has not felt like this before ever. He was tested for COVID-19 2 to 3 months ago and this was negative. He states he has not been around anyone that is been sick or had known illness. 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 He does have a history of atrial fibrillation as well. He tried using his inhalers at home but states this did not help much. His primary care provider is Modesta Ovalles. He is stating that he is not had a fever, he does feel chilled, he has shortness of breath, cough without secretions, no nausea/vomiting/diarrhea. He has no chest pain with this. Blood pressure at time of triage is elevated at 212/103, a recheck of this did demonstrate this to be 228/87. Patient is rather rude with staff initially and is cooperative but again; says some rather rude things to myself and nursing staff. Generalized Pain Score (Numeric/FACES): 8 - Related Data Allergies Allergy/AdvReac Type Severity Reaction Status Date / Time niacin Allergy Hives Verified 12/28/19 12:47 Home Meds: Home Meds Lisinopril 40 mg PO DAILY 01/14/16 [History] Simvastatin 10 mg PO BEDTIME 01/14/16 [History] metFORMIN HCl [Metformin HCl] 1,000 mg PO BID 01/14/16 [History] Aspirin 81 mg PO DAILY 10/29/16 [History] Diltiazem [Cardizem CD] 180 mg PO DAILY 10/29/16 [History] Insulin Aspart [NovoLOG] 1 dose SQ TID PRN 10/29/16 [History] Tiotropium Br/Olodaterol HCl [Stiolto Respimat Inhal [place]] 2 puff INH DAILY 12/15/16 [History] Rivaroxaban [Xarelto] 20 mg PO DAILY 05/25/18 [History] Insulin Degludec [Tresiba] 50 units SQ DAILY 09/16/19 [History] Albuterol/Ipratropium [DuoNeb 3.0-0.5 MG/3 ML] 3 ml NEB QID #1 box 12/28/19 [Rx] lisinopriL [Lisinopril] 40 mg PO DAILY #30 tablet 12/28/19 [Rx] Past Medical History HEENT History: Reports: Impaired Vision Other HEENT History: wears glasses Cardiovascular History: Reports: Afib, Aneurysm, High Cholesterol, Hypertension Other Cardiovascular History: post op afib, edema, venous insufficiency Respiratory History: Reports: COPD, Sleep Apnea Other Respiratory History: R lung mass and adenocarcinoma Gastrointestinal History: Reports: Colon Polyp Genitourinary History: Reports: Other (See Below) Other Genitourinary History: dysuria Musculoskeletal History: Reports: Osteoarthritis Endocrine/Metabolic History: Reports: Diabetes, Type II, Obesity/BMI 30+ Oncologic (Cancer) History: Reports: Colon, Lung - Infectious Disease History Infectious Disease History: Reports: Chicken Pox, Mumps - Past Surgical History HEENT Surgical History: Reports: Adenoidectomy, Myringotomy w Tube(s), Tonsillectomy GI Surgical History: Reports: Colonoscopy, Other (See Below) Oncologic Surgical History: Reports: Other (See Below) (tumor resection of colon and lung cancer) Social & Family History - Family History Family Medical History: Noncontributory - Tobacco Use Tobacco Use Status *Q: Current Every Day Tobacco User Years of Tobacco use: 59 Packs/Tins Daily: 1 - Caffeine Use Caffeine Use: Reports: None - Recreational Drug Use Recreational Drug Use: No - Living Situation & Occupation Living situation: Reports: , with Spouse Occupation: Unemployed ED ROS GENERAL - Review of Systems Review Of Systems: Comprehensive ROS is negative, except as noted in HPI. ED EXAM, GENERAL - Physical Exam Exam: See Below Exam Limited By: No Limitations General Appearance: Alert, WD/WN, No Apparent Distress (pt does not appear to be in any respiratory distress, but states that he cannot breathe and feels generally unwell) Respiratory/Chest: No Respiratory Distress, No Accessory Muscle Use, Chest Non- Tender, Rhonchi (bilateral lung sánchez). No: Wheezing Cardiovascular: Normal Peripheral Pulses, Regular Rate, Rhythm, No Edema, No Murmur Peripheral Pulses: 2+: Radial (L), Radial (R) Extremities: Normal Inspection, Normal Capillary Refill Neurological: Alert, Oriented, Normal Cognition, No Motor/Sensory Deficits Psychiatric: Normal Affect, Normal Mood Skin Exam: Warm, Dry, Intact, Normal Color, No Rash #1 Interpretation EKG Date: 12/28/19 Time: 13:53 Rhythm: NSR Rate (Beats/Min): 67 [place]: Normal P-Wave: Present QRS: Normal ST-T: Normal QT: Normal EKG Interpretation Comments: No obvious ischemia or acute ST changes noted, reviewed by myself and Dr. Worthington. Course - Vital Signs Last Recorded V/S: Last Vital Signs Temp 97.1 F 12/28/19 12:44 Pulse 72 12/28/19 15:00 Resp 25 H 12/28/19 12:44 BP 223/92 H 12/28/19 15:00 Pulse Ox 97 12/28/19 13:19 - Orders/Labs/Meds Orders: Active Orders 24 hr Category Date Time Status EKG Documentation Completion [RC] STAT Care 12/28/19 13:18 Ordered Peripheral IV Care [RC] . DIRECTED Care 12/28/19 13:18 Ordered RT Aerosol Therapy [RC] ASDIRECTED Care 12/28/19 13:19 Ordered Sodium Chloride 0.9% [Saline Flush] Med 12/28/19 13:18 Ordered 10 ml FLUSH ASDIRECTED PRN Isolation [COMM] Routine Oth 12/28/19 13:18 Ordered Peripheral IV Insertion Adult [OM.PC] Routine Oth 12/28/19 13:18 Ordered Medication Orders Sodium Chloride (Saline Flush) 10 ml FLUSH ASDIRECTED PRN PRN Reason: Keep Vein Open Last Admin: 12/28/19 15:04 Dose: 10 ml Documented by: PAMELLA Labs: Laboratory Tests 12/28/19 12/28/19 12/28/19 Range/Units 13:40 13:40 13:40 WBC 11.34 H (4.23-9.07) K/mm3 RBC 4.96 (4.63-6.08) M/mm3 Hgb 15.4 (13.7-17.5) gm/dl Hct 43.9 (40.1-51.0) % MCV 88.5 (79.0-92.2) fl MCH 31.0 (25.7-32.2) pg MCHC 35.1 (32.2-35.5) g/dl RDW Std Deviation 41.5 (35.1-43.9) fL Plt Count 220 (163-337) K/mm3 MPV 10.0 (9.4-12.3) fl Neutrophils % (Manual) 80 H (40-60) % Band Neutrophils % 0 (0-10) % Lymphocytes % (Manual) 17 L (20-40) % Atypical Lymphs % 0 % Monocytes % (Manual) 1 L (2-10) % Eosinophils % (Manual) 1 (0.8-7.0) % Basophils % (Manual) 1 (0.2-1.2) Platelet Estimate Adequate Plt Morphology Comment Normal RBC Morph Comment Normal PT (9.7-12.0) SECONDS INR APTT (21.7-31.4) SECONDS D-Dimer, Quantitative (0.19-0.50) mg/L Sodium (136-145) mEq/L Potassium (3.5-5.1) mEq/L Chloride (98-107) mEq/L Carbon Dioxide (21-32) mEq/L Anion Gap (5-15) BUN (7-18) mg/dL Creatinine (0.7-1.3) mg/dL Est Cr Clr Drug Dosing mL/min Estimated GFR (MDRD) (>60) mL/min BUN/Creatinine Ratio (14-18) Glucose (74-106) mg/dL Lactic Acid (0.4-2.0) mmol/L Calcium (8.5-10.1) mg/dL Magnesium (1.8-2.4) mg/dl Ferritin (26-388) ng/ml Total Bilirubin (0.2-1.0) mg/dL AST (15-37) U/L ALT (16-63) U/L Alkaline Phosphatase (46-116) U/L Lactate Dehydrogenase (85-227) U/L Troponin I (0.00-0.056) ng/mL C-Reactive Protein 0.6 (<1.0) mg/dL NT-Pro-B Natriuret Pep (0-125) pg/mL Total Protein (6.4-8.2) g/dl Albumin (3.4-5.0) g/dl Globulin gm/dL Albumin/Globulin Ratio (1-2) SARS-CoV-2 RNA (ARMAND) Negative (NEGATIVE) 12/28/19 12/28/19 12/28/19 Range/Units 13:40 13:40 13:40 WBC (4.23-9.07) K/mm3 RBC (4.63-6.08) M/mm3 Hgb (13.7-17.5) gm/dl Hct (40.1-51.0) % MCV (79.0-92.2) fl MCH (25.7-32.2) pg MCHC (32.2-35.5) g/dl RDW Std Deviation (35.1-43.9) fL Plt Count (163-337) K/mm3 MPV (9.4-12.3) fl Neutrophils % (Manual) (40-60) % Band Neutrophils % (0-10) % Lymphocytes % (Manual) (20-40) % Atypical Lymphs % % Monocytes % (Manual) (2-10) % Eosinophils % (Manual) (0.8-7.0) % Basophils % (Manual) (0.2-1.2) Platelet Estimate Plt Morphology Comment RBC Morph Comment PT 9.8 (9.7-12.0) SECONDS INR < 0.93 APTT 22.2 (21.7-31.4) SECONDS D-Dimer, Quantitative 0.71 H (0.19-0.50) mg/L Sodium 136 (136-145) mEq/L Potassium 4.2 (3.5-5.1) mEq/L Chloride 99 (98-107) mEq/L Carbon Dioxide 26 (21-32) mEq/L Anion Gap 15.2 H (5-15) BUN 15 (7-18) mg/dL Creatinine 0.9 (0.7-1.3) mg/dL Est Cr Clr Drug Dosing 82.63 mL/min Estimated GFR (MDRD) > 60 (>60) mL/min BUN/Creatinine Ratio 16.7 (14-18) Glucose 251 H (74-106) mg/dL Lactic Acid (0.4-2.0) mmol/L Calcium 9.0 (8.5-10.1) mg/dL Magnesium 1.8 (1.8-2.4) mg/dl Ferritin (26-388) ng/ml Total Bilirubin 0.2 (0.2-1.0) mg/dL AST 25 (15-37) U/L ALT 24 (16-63) U/L Alkaline Phosphatase 74 (46-116) U/L Lactate Dehydrogenase 259 H (85-227) U/L Troponin I < 0.017 (0.00-0.056) ng/mL C-Reactive Protein (<1.0) mg/dL NT-Pro-B Natriuret Pep 351 H (0-125) pg/mL Total Protein 6.7 (6.4-8.2) g/dl Albumin 2.3 L (3.4-5.0) g/dl Globulin 4.4 gm/dL Albumin/Globulin Ratio 0.5 L (1-2) SARS-CoV-2 RNA (ARMAND) (NEGATIVE) 12/28/19 12/28/19 Range/Units 13:40 13:40 WBC (4.23-9.07) K/mm3 RBC (4.63-6.08) M/mm3 Hgb (13.7-17.5) gm/dl Hct (40.1-51.0) % MCV (79.0-92.2) fl MCH (25.7-32.2) pg MCHC (32.2-35.5) g/dl RDW Std Deviation (35.1-43.9) fL Plt Count (163-337) K/mm3 MPV (9.4-12.3) fl Neutrophils % (Manual) (40-60) % Band Neutrophils % (0-10) % Lymphocytes % (Manual) (20-40) % Atypical Lymphs % % Monocytes % (Manual) (2-10) % Eosinophils % (Manual) (0.8-7.0) % Basophils % (Manual) (0.2-1.2) Platelet Estimate Plt Morphology Comment RBC Morph Comment PT (9.7-12.0) SECONDS INR APTT (21.7-31.4) SECONDS D-Dimer, Quantitative (0.19-0.50) mg/L Sodium (136-145) mEq/L Potassium (3.5-5.1) mEq/L Chloride (98-107) mEq/L Carbon Dioxide (21-32) mEq/L Anion Gap (5-15) BUN (7-18) mg/dL Creatinine (0.7-1.3) mg/dL Est Cr Clr Drug Dosing mL/min Estimated GFR (MDRD) (>60) mL/min BUN/Creatinine Ratio (14-18) Glucose (74-106) mg/dL Lactic Acid 1.7 (0.4-2.0) mmol/L Calcium (8.5-10.1) mg/dL Magnesium (1.8-2.4) mg/dl Ferritin 532 H (26-388) ng/ml Total Bilirubin (0.2-1.0) mg/dL AST (15-37) U/L ALT (16-63) U/L Alkaline Phosphatase (46-116) U/L Lactate Dehydrogenase (85-227) U/L Troponin I (0.00-0.056) ng/mL C-Reactive Protein (<1.0) mg/dL NT-Pro-B Natriuret Pep (0-125) pg/mL Total Protein (6.4-8.2) g/dl Albumin (3.4-5.0) g/dl Globulin gm/dL Albumin/Globulin Ratio (1-2) SARS-CoV-2 RNA (ARMAND) (NEGATIVE) Meds: Medications Generic Name Dose Route Start Last Admin Trade Name Freq PRN Reason Stop Dose Admin Sodium Chloride 10 ml 12/28/19 13:18 12/28/19 15:04 Saline Flush FLUSH 10 ml ASDIRECTED PRN Administration Keep Vein Open Discontinued Medications Generic Name Dose Route Start Last Admin Trade Name Freq PRN Reason Stop Dose Admin Albuterol/Ipratropium 3 ml 12/28/19 13:19 12/28/19 13:54 Duoneb 3.0-0.5 Mg/3 Ml NEB 12/28/19 13:20 3 ml ONETIME ONE Administration Hydralazine HCl 10 mg 12/28/19 14:27 12/28/19 15:03 Apresoline IVPUSH 12/28/19 14:28 10 mg ONETIME ONE Administration - Re-Assessments/Exams Free Text/Narrative Re-Assessment/Exam: 12/28/19 13:27 Patient presents to the ED for the evaluation of his ongoing respiratory issues. As stated in the HPI, he was rather rude to myself and multiple nurses on staff. I did make it known to the patient that he should not be behaving the way he was, that we are here to help him. Nonetheless again he was still rather rude. Have ordered some labs for evaluation to include a flu swab and Covid swab, chest x-ray, EKG for management of today's visit. Have ordered DuoNeb as well as he does have a history of COPD, this could just be a COPD exacerbation. I will keep an eye on his blood pressure, and we will have to treat him if it does not seem to decrease while he is in the ER for an extended amount of time for labs. 12/28/19 14:01 Patient's chest x-ray demonstrates atelectatic and/or early infiltrative changes noted within both lung bases. I did compare his chest x-ray to a chest x-ray done in August of this last year, and this does seem similar to that x-ray, with no acute change. He has a a port placed since the x-ray in August. 12/28/19 14:28 The patient's blood pressure has been steadily in the 220s systolically for an hour while being in the ER. At this time we will try 10 mg of hydralazine for blood pressure management. I was made aware by nursing staff that the patient's D-dimer is mildly elevated at 0.71 as well. Patient's blood sugar is elevated at 251. 12/28/19 15:18 Although the patient's D-dimer is mildly elevated at the 0.71 as stated above. I do not believe the patient suffering from an acute pulmonary embolus. O2 sats are still good in the upper 90s. Patient is not short of breath, he states that the nebulizer did help quite a bit. His Covid test was negative, influenza test was negative. Blood sugar again was mildly elevated at 250, I will get him home with a box of nebulizers, something for blood pressure, and have him take his insulin on a sliding scale at home. Patient is okay with this plan at this time. Departure - Departure Time of Disposition: 15:19 Disposition: Home, Self-Care 01 Condition: Good Clinical Impression: COPD exacerbation - Discharge Information *PRESCRIPTION DRUG MONITORING PROGRAM REVIEWED*: No *COPY OF PRESCRIPTION DRUG MONITORING REPORT IN PATIENT ARMEN: No Instructions: Chronic Obstructive Pulmonary Disease Exacerbation, [id number] Referrals: Ivone Ovalles, [facility] [Primary Care Provider] - Forms: ED Department Discharge Additional Instructions: You were seen in the ER today for your ongoing respiratory symptoms. Laboratory evaluation done at today's visit, was fairly unremarkable. Your Covid test was negative and your influenza test was negative. You did receive some relief from the nebulizer that was done with you at today's visit. It is highly likely that you are suffering from an exacerbation of your chronic lung disease. Your blood pressure was also elevated throughout your ER stay however it did come down to 178 systolically with a small amount of blood pressure medication you received in your IV. You have been restarted on lisinopril 40 mg daily for your blood pressure, and have been given a box of nebulizers for further use. You should follow-up with your primary care provider, Modesta Ovalles sometime within the next week, please call [phone] and obtain an appointment with her for follow-up. Your blood sugar was mildly elevated when you were here at 251, please go home and use your sliding scale insulin as directed. Please go home and monitor your blood pressure at least twice daily, you should be sitting in a calm quiet state for a few minutes before you take your blood pressure so that you get the most accurate readings. Please keep these written down on a piece of paper or a journal, so you may show these to Ms. Ovalles at your next appointment. Please return to the ER at any time if your symptoms should change or worsen. Sepsis Event Note (ED) - Evaluation Sepsis Screening Result: No Definite Risk - Focused Exam Vital Signs: Vital Signs Temp Pulse Resp BP Pulse Ox Pulse Ox 12/28/19 15:00 72 223/92 H 12/28/19 13:19 97 12/28/19 12:44 97.1 F 74 25 H 212/103 H 99 - My Orders Last 24 Hours: My Active Orders 12/28/19 13:18 EKG Documentation Completion [RC] STAT Peripheral IV Care [RC] . DIRECTED Sodium Chloride 0.9% [Saline Flush] 10 ml FLUSH ASDIRECTED PRN Isolation [COMM] Routine Peripheral IV Insertion Adult [OM.PC] Routine 12/28/19 13:19 RT Aerosol Therapy [RC] ASDIRECTED - Assessment/Plan Last 24 Hours: My Active Orders 12/28/19 13:18 EKG Documentation Completion [RC] STAT Peripheral IV Care [RC] . DIRECTED Sodium Chloride 0.9% [Saline Flush] 10 ml FLUSH ASDIRECTED PRN Isolation [COMM] Routine Peripheral IV Insertion Adult [OM.PC] Routine 12/28/19 13:19 RT Aerosol Therapy [RC] ASDIRECTED
[2019-12-28] MEDS ORDERED: hydrALAZINE 20 MG/ML SDV IVPUSH ONE (14:27)
--- NOTE | 2019-12-28 14:36 | CR ---
PROCEDURE INFORMATION: Exam: XR Chest, 1 View Exam date and time: 12/28/2019 1:05 PM Age: 59 years old Clinical indication: Shortness of breath TECHNIQUE: Imaging protocol: XR of the chest Views: 1 view. COMPARISON: CR Chest 1V Frontal 12/16/2016 11:02 AM FINDINGS: Tubes, catheters and devices: Left-sided Port-A-Cath is in place with the tip in the superior vena cava. Lungs: Atelectatic and/or early infiltrative changes noted within both lung bases. Pleural space: There is no evidence of pneumothorax. There are no pleural effusions present. Heart/Mediastinum: Unremarkable. No cardiomegaly. Diaphragm: There is nonspecific elevation of the right hemidiaphragm. Bones/joints: Unremarkable. IMPRESSION: Atelectatic and/or early infiltrative changes noted within both lung bases. Thank you for allowing us to participate in the care of your patient. Dictated and Authenticated by: Laz Whiting DO 12/28/2019 2:45 PM Central Time ([place] & [place]) SOFÍA
[2019-12-28 15:50] VITALS: BP 177/84; PULSE 64
== END 2019-12-28 15:49 | disposition home or self-care (01) ==
LOC: JD.ED 12:31
DX: J44.1 Chronic obstructive pulmonary disease with (acute) exacerbation (principal); I48.91 Unspecified atrial fibrillation; E78.00 Pure hypercholesterolemia, unspecified; I10 Essential (primary) hypertension; M19.90 Unspecified osteoarthritis, unspecified site; E66.9 Obesity, unspecified; F17.210 Nicotine dependence, cigarettes, uncomplicated; E11.9 Type 2 diabetes mellitus without complications; Z79.01 Long term (current) use of anticoagulants; Z79.82 Long term (current) use of aspirin; Z20.828 Contact with and (suspected) exposure to other viral communicable diseases; Z88.8 Allergy status to other drugs, medicaments and biological substances; Z79.4 Long term (current) use of insulin
CPT/HCPCS: 36415; 71045; 80053; 82728; 83605; 83615; 83735; 83880; 84484; 85007; 85027; 85379; 85610; 85730; 86140; 87804; 93005; 94640; 96374; 99285; J0360; U0002; J7620-GY

== ENCOUNTER → 2020-10-24 | Day surgery (SDC) | payer MEDICARE, BC ==
[~2020-10-24] MED LIST changes: +Brimonidine 0.2% Ophth Soln 5 ML Bottle EYERT SCH; +Cefuroxime 10 MG/ML SYRINGE EYERT SCH; -Lactated Ringers 1,000 ML IV SCH; +Lidocaine 1% PF 2 ML SDV INJECT SCH; -Lidocaine 1%/Sod Bicarbonate in NS 8.4% 1 ML Syringe IDERM PRN; +Phenylephrine 2.5% Ophth Soln 2 ML Bot EYERT SCH; +Pilocarpine 4% Ophth Soln 15 ML Bot EYERT SCH; +Polymyxin B/Trimethoprim 10 ML Bottle EYERT SCH; -Sodium Chloride 0.9% 10 ML Syringe FLUSH PRN; +Tetracaine HCl/PF 0.5% 4 ML Bottle EYEBOTH SCH; +Tropicamide 1% Ophth Soln 15 ML Bottle EYERT SCH
--- NOTE | 2020-10-24 09:34 | PCM.SN.2 ---
- Free Text/Narrative Note: 0920 Blood pressure readings running greater than 220 systolically, mean pressure running around 120, pt says he is "on no medication and can can control blood pressure by smoking marijuana. The monitor is even unable to read the patient's blood pressure at times. Patient was highly encouraged to go to the ER. Patient stated that it is his choice as to what he wants to do with his health. i recommended that he get a appointment with his primary care provider after the ER visit. says he has medication at home and they will go there to get that. Dr. Nolan informed of situation.
== END ==
LOC: JD.SDS 08:21
PROVIDERS: ATTEND Ophthalmology
DX: H26.9 Unspecified cataract (principal); Z53.09 Procedure and treatment not carried out because of other contraindication
CPT/HCPCS: 82947

== ENCOUNTER 2020-11-21 09:03 | Day surgery (SDC) | payer MEDICARE, BC ==
[2020-11-21] MEDS: Polymyxin B/Trimethoprim 10 ML Bottle EYERT SCH ×4 (09:06→11:05)
[2020-11-21] MEDS: Brimonidine 0.2% Ophth Soln 5 ML Bottle EYERT SCH ×4 (09:14→11:05)
[2020-11-21] MEDS: Phenylephrine 2.5% Ophth Soln 2 ML Bot EYERT SCH ×6 (09:18→11:02)
[2020-11-21] MEDS: Tropicamide 1% Ophth Soln 15 ML Bottle EYERT SCH ×4 (09:23→10:19)
--- NOTE | 2020-11-21 10:17 | PCM.PREANE ---
Preanesthetic Assessment - Anesthesia/Transfusion/Family Hx Anesthesia History: Prior Anesthesia Without Reaction Family History of Anesthesia Reaction: No Transfusion History: No Prior Transfusion(s) - Review of Systems General: No Symptoms Pulmonary: Shortness of Breath Cardiovascular: No Symptoms Gastrointestinal: No Symptoms Neurological: No Symptoms Other: Reports: Diabetes (pt does not take meds or check BS ) - Physical Assessment NPO Status Date: 11/20/20 NPO Status Time: 21:00 ASA Class: 3 Mental Status: Alert & Oriented x3 Airway Class: Mallampati = 1 Dentition: Reports: Missing Tooth/Teeth Thyro-Mental Finger Breadths: 3 Mouth Opening Finger Breadths: 3 ROM/Head Extension: Full Lungs: Clear to Auscultation, Normal Respiratory Effort Cardiovascular: Regular Rate, Regular Rhythm - Allergies Allergies/Adverse Reactions: Allergies Allergy/AdvReac Type Severity Reaction Status Date / Time niacin Allergy Hives Verified 11/20/20 16:19 - Acknowledgements Anesthesia Type Planned: MAC Pt an Appropriate Candidate for the Planned Anesthesia: Yes Alternatives and Risks of Anesthesia Discussed w Pt/Guardian: Yes Pt/Guardian Understands and Agrees with Anesthesia Plan: Yes PreAnesthesia Questionnaire HEENT History: Reports: Impaired Vision Other HEENT History: wears glasses Cardiovascular History: Reports: Afib, Aneurysm, High Cholesterol, Hypertension Other Cardiovascular History: post op afib, edema, venous insufficiency Respiratory History: Reports: COPD, Sleep Apnea Other Respiratory History: R lung mass and adenocarcinoma Gastrointestinal History: Reports: Colon Polyp Genitourinary History: Reports: Other (See Below) Other Genitourinary History: dysuria 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 Musculoskeletal History: Reports: Osteoarthritis Neurological History: Reports: None Psychiatric History: Reports: None Endocrine/Metabolic History: Reports: Diabetes, Type II, Obesity/BMI 30+ Hematologic History: Reports: None Immunologic History: Reports: None Oncologic (Cancer) History: Reports: Colon, Lung Dermatologic History: Reports: None - Infectious Disease History Infectious Disease History: Reports: Chicken Pox, Mumps - Past Surgical History HEENT Surgical History: Reports: Adenoidectomy, Myringotomy w Tube(s), Tonsillectomy GI Surgical History: Reports: Colonoscopy, Other (See Below) Oncologic Surgical History: Reports: Other (See Below) (tumor resection of colon and lung cancer) - SUBSTANCE USE Tobacco Use Status *Q: Current Every Day Tobacco User - HOME MEDS Home Medications: Home Meds Lisinopril 40 mg PO DAILY 01/14/16 [History] Simvastatin 10 mg PO BEDTIME 01/14/16 [History] metFORMIN HCl [Metformin HCl] 1,000 mg PO BID 01/14/16 [History] Aspirin 81 mg PO DAILY 10/29/16 [History] Diltiazem [Cardizem CD] 180 mg PO DAILY 10/29/16 [History] Insulin Aspart [NovoLOG] 1 dose SQ TID PRN 10/29/16 [History] Tiotropium Br/Olodaterol HCl [Stiolto Respimat Inhal [place]] 2 puff INH DAILY 12/15/16 [History] Rivaroxaban [Xarelto] 20 mg PO DAILY 05/25/18 [History] Insulin Degludec [Tresiba] 50 units SQ DAILY 09/16/19 [History] Albuterol/Ipratropium [DuoNeb 3.0-0.5 MG/3 ML] 3 ml NEB QID #1 box 12/28/19 [Rx] lisinopriL [Lisinopril] 40 mg PO DAILY #30 tablet 12/28/19 [Rx] - CURRENT (IN HOUSE) MEDS Current Meds: Current Medications Brimonidine Tartrate (Brimonidine 0.2% Ophth Soln 5 Ml Bottle) 0 ml EYERT ASDIRECTED VILMA Stop: 11/21/20 18:00 Last Admin: 11/21/20 10:00 Dose: 1 drop Documented by: Cefuroxime Sodium (Cefuroxime 10 Mg/Ml Syringe) 0 mg EYERT ASDIRECTED VILMA Stop: 11/21/20 18:00 Lidocaine HCl (Lidocaine 1% Pf 2 Ml Sdv) 0 ml INJECT ASDIRECTED VILMA Stop: 11/21/20 18:00 Phenylephrine HCl (Phenylephrine 2.5% Ophth Soln 2 Ml Bot) 0 ml EYERT ASDIRECTED VILMA Stop: 11/21/20 18:00 Last Admin: 11/21/20 10:11 Dose: 1 drop Documented by: Pilocarpine HCl (Pilocarpine 4% Ophth Soln 15 Ml Bot) 0 ml EYERT ASDIRECTED VILMA Stop: 11/21/20 18:00 Polymyxin/Trimethoprim Sulfate (Polymyxin B/Trimethoprim 10 Ml Bottle) 0 ml EYERT ASDIRECTED VILMA Stop: 11/21/20 18:00 Last Admin: 11/21/20 09:50 Dose: 1 drop Documented by: Tetracaine HCl (Tetracaine Hcl/Pf 0.5% 4 Ml Bottle) 0 ml EYEBOTH ASDIRECTED VILMA Stop: 11/21/20 18:00 Tropicamide (Tropicamide 1% Ophth Soln 15 Ml Bottle) 0 ml EYERT ASDIRECTED VILMA Stop: 11/21/20 18:00 Last Admin: 11/21/20 09:45 Dose: 1 drop Documented by:
[2020-11-21] MEDS: Tetracaine HCl/PF 0.5% 4 ML Bottle EYEBOTH SCH ×3 (10:38→11:02)
--- NOTE | 2020-11-21 10:51 | PCM48HPAN ---
Post Anesthesia Note - EVALUATION WITHIN 48HRS OF ANESTHETIC Vital Signs in Normal Range: Yes Patient Participated in Evaluation: Yes Respiratory Function Stable: Yes Airway Patent: Yes Cardiovascular Function Stable: Yes Hydration Status Stable: Yes Pain Control Satisfactory: Yes Nausea and Vomiting Control Satisfactory: Yes Mental Status Recovered: Yes
[2020-11-21] MEDS: Lidocaine 1% PF 2 ML SDV INJECT SCH ×2 (10:55→11:02)
[2020-11-21] MEDS: Cefuroxime 10 MG/ML SYRINGE EYERT SCH ×2 (11:02→11:04)
[2020-11-21] MEDS: Pilocarpine 4% Ophth Soln 15 ML Bot EYERT SCH ×2 (11:03→11:05)
[2020-11-21 12:01] VITALS: BP 196/91; PULSE 78
== END 2020-11-21 11:15 | disposition home or self-care (01) ==
LOC: JD.SDS 09:03
PROVIDERS: ATTEND Ophthalmology
DX: E11.36 Type 2 diabetes mellitus with diabetic cataract (principal); H25.813 Combined forms of age-related cataract, bilateral; E11.3293 Type 2 diabetes mellitus with mild nonproliferative diabetic retinopathy without macular edema, bilateral; I10 Essential (primary) hypertension; F17.200 Nicotine dependence, unspecified, uncomplicated; E78.00 Pure hypercholesterolemia, unspecified; E66.9 Obesity, unspecified; Z98.890 Other specified postprocedural states; Z88.8 Allergy status to other drugs, medicaments and biological substances; Z79.4 Long term (current) use of insulin
CPT/HCPCS: 66984; J0697; C1780

== ENCOUNTER 2020-12-19 07:41 | Day surgery (SDC) | payer MEDICARE, BC ==
--- NOTE | 2020-12-19 09:05 | PCM.PREANE ---
Preanesthetic Assessment - Procedure Proposed Procedure: Left eye cataract extraction with IOL - Anesthesia/Transfusion/Family Hx Anesthesia History: Prior Anesthesia Without Reaction Family History of Anesthesia Reaction: No Transfusion History: No Prior Transfusion(s) - Review of Systems General: No Symptoms Pulmonary: Other (COPD, Emphysema, smoker, STACIE with CPAP, Asthma, Inhalers PRN, ) Cardiovascular: Other (GA without stents in 2008, HTN, HLD, ) Gastrointestinal: No Symptoms Neurological: Numbness (bilat hands after chemo ) Other: Reports: Diabetes, Anxiety - Physical Assessment NPO Status Date: 12/18/20 NPO Status Time: 21:00 Height: 1.7 m Weight: 93.894 kg ASA Class: 3 Mental Status: Alert & Oriented x3 Dentition: Reports: Dentures (upper and lower ) Thyro-Mental Finger Breadths: 3 Mouth Opening Finger Breadths: 3 ROM/Head Extension: Full Lungs: Normal Respiratory Effort, Wheezing (expiratory ) Cardiovascular: Regular Rate, Regular Rhythm - Allergies Allergies/Adverse Reactions: Allergies Allergy/AdvReac Type Severity Reaction Status Date / Time niacin Allergy Hives Verified 12/18/20 11:46 - Blood Blood Available: No Product(s) Available: None - Anesthesia Plan Pre-Op Medication Ordered: None Beta Hector: Metoprolol Med Last Dose Date: 12/19/20 Med Last Dose Time: 07:30 - Acknowledgements Anesthesia Type Planned: MAC Pt an Appropriate Candidate for the Planned Anesthesia: Yes Alternatives and Risks of Anesthesia Discussed w Pt/Guardian: Yes Pt/Guardian Understands and Agrees with Anesthesia Plan: Yes PreAnesthesia Questionnaire HEENT History: Reports: Impaired Vision Other HEENT History: wears glasses Cardiovascular History: Reports: Afib, Aneurysm, High Cholesterol, Hypertension Other Cardiovascular History: post op afib, edema, venous insufficiency Respiratory History: Reports: COPD, Sleep Apnea Other Respiratory History: R lung mass and adenocarcinoma Gastrointestinal History: Reports: Colon Polyp Genitourinary History: Reports: Other (See Below) Other Genitourinary History: dysuria [employer] History: Reports: None Musculoskeletal History: Reports: Osteoarthritis Neurological History: Reports: None Psychiatric History: Reports: None Endocrine/Metabolic History: Reports: Diabetes, Type II, Obesity/BMI 30+ Hematologic History: Reports: None Immunologic History: Reports: None Oncologic (Cancer) History: Reports: Colon, Lung Dermatologic History: Reports: None - Infectious Disease History Infectious Disease History: Reports: Chicken Pox, Mumps - Past Surgical History HEENT Surgical History: Reports: Adenoidectomy, Myringotomy w Tube(s), Tonsillectomy GI Surgical History: Reports: Colonoscopy, Other (See Below) Oncologic Surgical History: Reports: Other (See Below) (tumor resection of colon and lung cancer) - HOME MEDS Home Medications: Home Meds Lisinopril 40 mg PO DAILY 01/14/16 [History] Simvastatin 10 mg PO BEDTIME 01/14/16 [History] metFORMIN HCl [Metformin HCl] 1,000 mg PO BID 01/14/16 [History] Aspirin 81 mg PO DAILY 10/29/16 [History] Diltiazem [Cardizem CD] 180 mg PO DAILY 10/29/16 [History] Insulin Aspart [NovoLOG] 1 dose SQ TID PRN 10/29/16 [History] Tiotropium Br/Olodaterol HCl [Stiolto Respimat Inhal [place]] 2 puff INH DAILY 12/15/16 [History] Rivaroxaban [Xarelto] 20 mg PO DAILY 05/25/18 [History] Insulin Degludec [Tresiba] 50 units SQ DAILY 09/16/19 [History] Albuterol/Ipratropium [DuoNeb 3.0-0.5 MG/3 ML] 3 ml NEB QID #1 box 12/28/19 [Rx] lisinopriL [Lisinopril] 40 mg PO DAILY #30 tablet 12/28/19 [Rx] - CURRENT (IN HOUSE) MEDS Current Meds: Current Medications Brimonidine Tartrate (Brimonidine 0.2% Ophth Soln 5 Ml Bottle) 0 ml EYELF ASDIRECTED VILMA Stop: 12/19/20 18:00 Cefuroxime Sodium (Cefuroxime 10 Mg/Ml Syringe) 0 mg EYELF ASDIRECTED VILMA Stop: 12/19/20 18:00 Lidocaine HCl (Lidocaine 1% Pf 2 Ml Sdv) 0 ml INJECT ASDIRECTED VILMA Stop: 12/19/20 18:00 Phenylephrine HCl (Phenylephrine 2.5% Ophth Soln 2 Ml Bot) 0 ml EYELF ASDIRECTED VILMA Stop: 12/19/20 18:00 Pilocarpine HCl (Pilocarpine 4% Ophth Soln 15 Ml Bot) 0 ml EYELF ASDIRECTED VILMA Stop: 12/19/20 18:00 Polymyxin/Trimethoprim Sulfate (Polymyxin B/Trimethoprim 10 Ml Bottle) 0 ml EYELF ASDIRECTED VILMA Stop: 12/19/20 18:00 Tetracaine HCl (Tetracaine Hcl/Pf 0.5% 4 Ml Bottle) 0 ml EYEBOTH ASDIRECTED VILMA Stop: 12/19/20 18:00 Tropicamide (Tropicamide 1% Ophth Soln 15 Ml Bottle) 0 ml EYELF ASDIRECTED VILMA Stop: 12/19/20 18:00
[2020-12-19] MEDS: Polymyxin B/Trimethoprim 10 ML Bottle EYELF SCH ×4 (09:16→10:47)
[2020-12-19] MEDS: Brimonidine 0.2% Ophth Soln 5 ML Bottle EYELF SCH ×4 (09:25→10:47)
[2020-12-19] MEDS: Phenylephrine 2.5% Ophth Soln 2 ML Bot EYELF SCH ×6 (09:30→10:26)
[2020-12-19] MEDS: Tropicamide 1% Ophth Soln 15 ML Bottle EYELF SCH ×4 (09:35→10:01)
[2020-12-19] MEDS: Tetracaine HCl/PF 0.5% 4 ML Bottle EYEBOTH SCH ×5 (10:03→10:26)
[2020-12-19] MEDS: Lidocaine 1% PF 2 ML SDV INJECT SCH ×2 (10:24→10:26)
[2020-12-19] MEDS: Cefuroxime 10 MG/ML SYRINGE EYELF SCH ×2 (10:26→10:46)
[2020-12-19] MEDS: Pilocarpine 4% Ophth Soln 15 ML Bot EYELF SCH ×2 (10:27→10:47)
[2020-12-19 10:59] VITALS: BP 205/88; PULSE 60
== END 2020-12-19 10:54 | disposition home or self-care (01) ==
LOC: JD.SDS 07:41
PROVIDERS: ATTEND Ophthalmology
DX: E11.36 Type 2 diabetes mellitus with diabetic cataract (principal); H25.812 Combined forms of age-related cataract, left eye; E11.3293 Type 2 diabetes mellitus with mild nonproliferative diabetic retinopathy without macular edema, bilateral; H52.31 Anisometropia; H21.81 Floppy iris syndrome; H21.42 Pupillary membranes, left eye; Z98.890 Other specified postprocedural states; F17.200 Nicotine dependence, unspecified, uncomplicated; Z79.899 Other long term (current) drug therapy; Z96.1 Presence of intraocular lens
CPT/HCPCS: 66982; 82947; C1780; J0697

== ENCOUNTER 2021-05-17 06:07 | Emergency (ER) | payer MEDICARE, BC ==
[2021-05-17] MEDS ORDERED: fentaNYL 2,500 MCG in Sodium Chloride 0.9% 200 ML IV SCH (06:45)
[2021-05-17] MEDS ORDERED: Sodium Chloride 0.9% 100 ML ONE (06:48)
[2021-05-17] MEDS ORDERED: Sodium Chloride 0.9% 250 ML ONE (06:48)
[2021-05-17] MEDS ORDERED: fentaNYL 2500 MCG/50 ML SDV ONE (06:48)
[2021-05-17] MEDS ORDERED: Ketamine 500 mg/10 ML MDV ONE (07:00)
[2021-05-17] MEDS ORDERED: Succinylcholine 200 MG/10 ML MDV ONE (07:00)
[2021-05-17] MEDS ORDERED: Norepinephrine 4 MG in Dextrose 5% in Water 246 ML IV SCH ×2 (07:30)
[2021-05-17 08:25] LABS: CORONAVIRUS COVID-19 NAA NEGATIVE (NEGATIVE)
[2021-05-17 10:21] VITALS: BP 93/54; PULSE 70
== END 2021-05-17 12:11 | disposition expired ==
LOC: JD.ED 06:07
DX: I61.3 Nontraumatic intracerebral hemorrhage in brain stem (principal); I48.91 Unspecified atrial fibrillation; E78.00 Pure hypercholesterolemia, unspecified; I10 Essential (primary) hypertension; J44.9 Chronic obstructive pulmonary disease, unspecified; E11.9 Type 2 diabetes mellitus without complications; M19.90 Unspecified osteoarthritis, unspecified site; E66.9 Obesity, unspecified; Z68.30 Body mass index [BMI] 30.0-30.9, adult; Z20.822 Contact with and (suspected) exposure to COVID-19; Z79.899 Other long term (current) drug therapy; Z88.1 Allergy status to other antibiotic agents; Z79.82 Long term (current) use of aspirin
CPT/HCPCS: 0240U; 36415; 36600; 51702; 70450; 71045; 80053; 81001; 84484; 85025; 85379; 85610; 85730; 93005; 99285; J0330; J2250; J3010; J3490; J7050; J7060